=== PATIENT | female | born 1945 | race Caucasian/White ===

== ENCOUNTER → 2018-05-06 15:56 | Outpatient (CLI) | payer OTHER, SELFPAY ==
--- NOTE | 2018-05-06 | DI.RAD.S_ITS ---
PROCEDURE: XR LUMBAR SPINE 2-3V INDICATIONS: LEFT HIP, LEFT LEG PAIN TECHNIQUE: 3 views of the lumbar spine were acquired. COMPARISON: None. FINDINGS: Bones: 5 [id number] vertebrae are present. Minimal anterolisthesis of L4 on L5 is seen. Degenerative endplate changes and bilateral facet arthrosis throughout lumbar spine is seen more prominent at L4-5 and L5-S1 levels. No vertebral body compression fractures. No suspicious bony lesions. Soft tissues: Overlying bowel gas pattern is normal. No suspicious soft tissue calcifications. IMPRESSION: Degenerative disc disease throughout lumbar spine with likely grade 1 degenerative anterolisthesis of L4 on L5. No acute compression fracture. Dictated by: Young Hunter M.D. on 05/06/2018 at 17:24 Approved by: Young Hunter M.D. on 05/06/2018 at 17:26
--- NOTE | 2018-05-06 | DI.RAD.S_ITS ---
PROCEDURE: XR HIP W PEL IF DONE LT 2V INDICATIONS: LEFT HIP AND LEFT LEG PAIN TECHNIQUE: AP pelvis with lateral view(s) of the left hip(s). COMPARISON: None. FINDINGS: Bones: No fractures or dislocations. Pelvic ring appears intact. No suspicious bony lesions. Symmetric appearing bilateral hip joint osteoarthritis is seen. No evidence of avascular necrosis. Soft tissues: The visualized bowel gas pattern is normal. No suspicious soft tissue calcifications. IMPRESSION: Symmetric appearing mild bilateral hip joint osteoarthritis. No fracture or dislocation. No evidence of avascular necrosis. Dictated by: Young Hunter M.D. on 05/06/2018 at 17:22 Approved by: Young Hunter M.D. on 05/06/2018 at 17:23
--- NOTE | 2018-05-06 | DI.RAD.S_ITS ---
PROCEDURE: XR KNEE LT 3V INDICATIONS: LEFT HIP AND LEFT LEG PAIN TECHNIQUE: 3 views of the knee were acquired. COMPARISON: None. FINDINGS: Bones: No fractures or dislocations. No suspicious bony lesions. 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 No significant patellar subluxation. Soft tissues: No joint effusion. No suspicious soft tissue calcifications. IMPRESSION: [id number] tricompartment osteophytes. No left knee fracture or dislocation. No significant patellar subluxation. Dictated by: Young Hunter M.D. on 05/06/2018 at 17:23 Approved by: Young Hunter M.D. on 05/06/2018 at 17:24
== END ==
PROVIDERS: Visit Provider Family Medicine
DX: M25.552 Pain in left hip (principal); M79.605 Pain in left leg; M16.0 Bilateral primary osteoarthritis of hip; M17.12 Unilateral primary osteoarthritis, left knee; M51.36 Other intervertebral disc degeneration, lumbar region; M51.37 Other intervertebral disc degeneration, lumbosacral region
CPT/HCPCS: 72100; 73502; 73562

== ENCOUNTER → 2018-05-30 07:43 | Outpatient (CLI) | payer OTHER, SELFPAY ==
--- NOTE | 2018-05-30 | DI.MRI.S_ITS ---
PROCEDURE: MR LUMBAR SPINE WO CON INDICATIONS: LUMBAR RADICULOPATHY TECHNIQUE: Noncontrast sagittal T1 spin echo and T2 fast echo, sagittal STIR, axial T1 and T2 fast spin echo through the lumbar spine. In cases with scoliosis, additional coronal T2 fast spin echo may be performed. COMPARISON: [facility], CR, XR LUMBAR SPINE 2-3V, 05/06/2018, 16:23. FINDINGS: Image quality: Excellent. Alignment and Curvature: 5 lumbar type vertebral bodies are present by plain film. There is minimal, grade 1 retrolisthesis of L1 on L2 and L2 on L3. There is mild grade 1 anterolisthesis of L3 on L4 and L4 on L5. Bone Marrow: Marrow is of normal overall signal. No acute vertebral body compression fractures. Mild reactive signal within the endplates adjacent to the L1-L2, L2-L3, and L3-L4 intervertebral discs. Spinal Cord: Conus medullaris terminates at the upper L1 level. Visualized cord demonstrates normal signal and size. Paraspinous Soft Tissues: No paravertebral masses. L1-L2: Mild disc desiccation and diffuse disc bulge. Mild bilateral facet and ligamentum flavum hypertrophy. Mild epidural lipomatosis. Mild canal stenosis. Mild left foraminal stenosis. No right foraminal stenosis. L2-L3: Mild disc desiccation and diffuse disc bulge. Mild bilateral facet and ligamentum flavum hypertrophy. Mild epidural lipomatosis. Mild canal stenosis. Mild foraminal stenosis bilaterally. L3-L4: Mild disc height loss and desiccation. Mild diffuse disc bulge. Moderate bilateral facet and ligamentum flavum hypertrophy. Mild epidural lipomatosis. Moderate canal stenosis. Mild subarticular foraminal stenosis bilaterally. L4-L5: Mild disc height loss and desiccation. Mild diffuse disc bulge, with superimposed small broad-based left far lateral protrusion. Moderate bilateral facet and ligamentum flavum hypertrophy. Mild epidural lipomatosis. There is moderate canal stenosis. There is mild right and moderate to severe left foraminal stenosis with mild mass effect upon the left L4 nerve root within the neural foramen. L5-S1: Mild disc height loss and desiccation. Mild diffuse disc bulge. Moderate bilateral facet hypertrophy. Mild canal stenosis. Severe right and mild left foraminal stenosis. Mild flattening deformity of the right L5 nerve root within the neural foramen. IMPRESSION: 1.Multilevel degenerative disc and facet disease, as well as ligamentum flavum hypertrophy and epidural lipomatosis. 2. Multilevel canal stenoses, worst at L3-L4 and L4-L5, where there are moderate foraminal stenoses present. 3. Multilevel foraminal stenoses, worst on the left at L4-L5, and on the right at L5-S1, where there is associated intraforaminal neural flattening as described above. Recommend correlation with clinical symptoms to ascertain relevance of these findings. Dictated by: Lenora Olivares M.D. on 05/30/2018 at 9:01 Approved by: Lenora Olivares M.D. on 05/30/2018 at 9:07
== END ==
PROVIDERS: PCP Family Medicine; Visit Provider Family Medicine
DX: M54.16 Radiculopathy, lumbar region (principal)
CPT/HCPCS: 72148

== ENCOUNTER 2018-07-16 08:48 | Day surgery (SDC) | payer OTHER, SELFPAY ==
[2018-07-15 11:35] VITALS: BP 123/74; PULSE 74; RESP 20; TEMP 36.6; O2SAT 97
[2018-07-16] MEDS: PROPARACAINE 0.5% OPHTH SOL 2 DROPS EYE-OP (09:49)
[2018-07-16] MEDS: CATARACT EYE COMPOUND (10 DROPS/SYRINGE) 3 DROPS EYE-OP (09:55)
[2018-07-16 09:57] VITALS: BMI 32.3
[2018-07-16 10:03] VITALS: BP 153/85; PULSE 80; RESP 15; TEMP 36.8; O2SAT 95
[2018-07-16] MEDS: CHONDROIDTIN/SOD HYALURONATE 1.05 ML SYRINGE INTRAOCULA (11:18)
[2018-07-16] MEDS: TRIAMCINOLONE 50 MG/5 ML VIAL INJ (11:18)
[2018-07-16] MEDS: MOXIFLOXACIN OPHTH DROPS 3 ML BOTTLE 2 DROPS INJ (11:18)
[2018-07-16] MEDS: PHENYLEPHRINE/LIDOCAINE VIAL (OR) 0.2 ML EYE-OP (11:18)
[2018-07-16] MEDS: TETRACAINE 0.5% OPHTH DROPS 4 ML 2 DROPS EYE-OP (11:19)
--- NOTE | 2018-07-16 11:29 | PM.PREOP ---
Pre-operative Note Interval Note History & Physical reviewed/Exam performed by Physician: No Changes to H&P: No
--- NOTE | 2018-07-16 11:29 | PM.OP.1 ---
Operative Date/Time/Diagnoses Pre-op diagnosis: Nuclear cataract right eye Procedure & Clinicians Procedure: Cataract Surgery Same procedure as scheduled: Yes Surgeon: Magdiel Stubbs Anesthesia Type: MAC +/- and Sedation Operative Notes Procedure in detail: Patient brought to the operating suite. Tetracaine drops placed in the right eye. Patient was prepped and draped in sterile manner. Wire lid speculum was placed in the eye. Betadine drops were placed on the eye. This was irrigated. Lidocaine jelly was placed on the eye. A paracentesis port was created with a side-port blade. 0.1 mL 1% preservative free lidocaine was injected into the anterior chamber. The anterior chamber was deepened with viscoelastic. 2.6 mm keratome was used to create a temporal clear corneal incision. Cystotome and Utrata forceps were used to create continuous tear capsulorrhexis. Balanced salt solution was used to hydro dissect the nucleus. The phacoemulsification handpiece was inserted and the nucleus was removed using the stop and chop technique. The irrigation aspiration handpiece was inserted and the remaining cortex was removed. Anterior chamber was deepened with viscoelastic. An Landry ZCB00 intraocular lens with a power of 23.0 was injected into the capsular bag. Irrigation aspiration handpiece was inserted and the remaining viscoelastic was removed. Incision was hydrated with balanced salt solution and found to be leak free with pressure with Weck-Ashley sponges. 0.1 mL Vigamox injected anterior chamber. 0.3 mL Kenalog 10 mg was injected subconjunctivally. Lid speculum was removed. The patient left the operating room in excellent condition. Complications: none Condition: stable Disposition: same day surgery
== END 2018-07-16 11:50 ==
LOC: OR 08:52
PROVIDERS: PCP Family Medicine; Visit Provider Ophthalmology
DX: H25.11 Age-related nuclear cataract, right eye (principal); I10 Essential (primary) hypertension
CPT/HCPCS: J2250; J3010; J3301

== ENCOUNTER 2018-07-30 08:19 | Day surgery (SDC) | payer OTHER, SELFPAY ==
[2018-07-30 08:54] VITALS: BP 141/78; PULSE 67; RESP 16; TEMP 36.9; O2SAT 96; BMI 32.3
[2018-07-30] MEDS: PROPARACAINE 0.5% OPHTH SOL 2 DROPS EYE-OP (09:05)
[2018-07-30] MEDS: CATARACT EYE COMPOUND (10 DROPS/SYRINGE) 3 DROPS EYE-OP (09:07)
--- NOTE | 2018-07-30 09:48 | PM.PREOP ---
Pre-operative Note Interval Note History & Physical reviewed/Exam performed by Physician: No Changes to H&P: No
--- NOTE | 2018-07-30 09:48 | PM.OP.1 ---
Operative Date/Time/Diagnoses Pre-op diagnosis: Nuclear Cataract Left eye Post-op diagnosis: same Procedure & Clinicians Surgeon: Magdiel Stubbs Anesthesia Type: MAC +/- and Sedation Operative Notes Procedure in detail: Patient brought to the operating suite. Tetracaine drops placed in the left eye. Patient was prepped and draped in sterile manner. Wire lid speculum was placed in the eye. Betadine drops were placed on the eye. This was irrigated. Lidocaine jelly was placed on the eye. A paracentesis port was created with a side-port blade. 0.1 mL 1% preservative free lidocaine was injected into the anterior chamber. The anterior chamber was deepened with viscoelastic. 2.6 mm keratome was used to create a temporal clear corneal incision. Cystotome and Utrata forceps were used to create continuous tear capsulorrhexis. Balanced salt solution was used to hydro dissect the nucleus. The phacoemulsification handpiece was inserted and the nucleus was removed using the stop and chop technique. The irrigation aspiration handpiece was inserted and the remaining cortex was removed. Anterior chamber was deepened with viscoelastic. An Landry ZCB00 intraocular lens with a power of 23.0 was injected into the capsular bag. Irrigation aspiration handpiece was inserted and the remaining viscoelastic was removed. Incision was hydrated with balanced salt solution and found to be leak free with pressure with Weck-Ashley sponges. 0.1 mL Vigamox injected anterior chamber. 0.3 mL Kenalog 10 mg was injected subconjunctivally. Lid speculum was removed. The patient left the operating room in excellent condition. Complications: none Condition: stable Disposition: same day surgery
--- NOTE | 2018-07-30 09:50 | PM.PREOP ---
Pre-operative Note Interval Note History & Physical reviewed/Exam performed by Physician: No Changes to H&P: No
[2018-07-30] MEDS: MOXIFLOXACIN OPHTH DROPS 3 ML BOTTLE 2 DROPS INJ ×2 (09:55)
[2018-07-30] MEDS: TRIAMCINOLONE 50 MG/5 ML VIAL INJ (09:55)
[2018-07-30] MEDS: CHONDROIDTIN/SOD HYALURONATE 1.05 ML SYRINGE INTRAOCULA (09:55)
[2018-07-30] MEDS: LIDOCAINE JELLY 2% 5 ML 1 APPLIC TOP (09:56)
[2018-07-30] MEDS: TETRACAINE 0.5% OPHTH DROPS 4 ML 2 DROPS EYE-OP (09:56)
[2018-07-30] MEDS: BALANCED SALT IRRIG SOLN NO.2 500 ML, EPINEPHrine 1 MG IRR (09:56)
[2018-07-30] MEDS: PHENYLEPHRINE/LIDOCAINE VIAL (OR) 0.2 ML EYE-OP (09:57)
[2018-07-30 10:11] VITALS: BP 120/80; PULSE 70; RESP 15; TEMP 36.3; O2SAT 98
== END 2018-07-30 10:21 | disposition home or self-care (01) ==
LOC: OR 08:20
PROVIDERS: PCP Family Medicine; Visit Provider Ophthalmology
DX: H25.12 Age-related nuclear cataract, left eye (principal); I10 Essential (primary) hypertension
CPT/HCPCS: J0171; J2250; J3010; J3301

== ENCOUNTER → 2019-01-30 08:46 | Outpatient (CLI) | payer OTHER, SELFPAY ==
--- NOTE | 2019-01-30 | DI.MG.S_ITS ---
BILATERAL DIGITAL SCREENING MAMMOGRAM 3D/2D WITH CAD: 01/30/2019 CLINICAL: Routine screening. Comparison is made to exams dated: 07/06/2017 mammogram, 06/22/2016 mammogram, and 06/21/2015 mammogram - [facility]. The tissue of both breasts is heterogeneously dense. This may lower the sensitivity of mammography. Current study was also evaluated with a Computer Aided Detection (CAD) system. No significant masses, calcifications, or other findings are seen in either breast. There has been no significant interval change. IMPRESSION: NEGATIVE There is no mammographic evidence of malignancy. A 1 year screening mammogram is recommended. This exam was interpreted at Station ID: [id number]. NOTE: For mammograms, a report in lay terms will be sent to the patient. Approximately 15% of breast malignancies will not be visualized mammographically. In the management of a palpable breast mass, a negative mammogram must not discourage biopsy of a clinically suspicious lesion. Electronically Signed By: Enrique gonzalez/mathew:01/31/2019 18:05:07 letter sent: Normal Exam ACR BI-RADS Category 1: Negative [id number]
--- NOTE | 2019-01-30 | DI.RAD.S_ITS ---
PROCEDURE: XR CHEST 2V INDICATIONS: FHX LUNG CA TECHNIQUE: 2 views of the chest were acquired. COMPARISON: [facility], , CHEST 1 VIEW, 09/21/2017, 17:31. FINDINGS: Surgical changes and devices: None. Lungs and pleura: Lungs are clear. No mass seen. No pleural effusions or pneumothorax. Mediastinum: Mediastinal contours are normal and unchanged. Heart size is normal. Bones and chest wall: No suspicious bony abnormalities. Soft tissues appear unremarkable. IMPRESSION: Normal exam. No mass or adenopathy seen. Dictated by: Poncho Kong M.D. on 01/30/2019 at 9:45 Approved by: Poncho Kong M.D. on 01/30/2019 at 9:47
== END ==
PROVIDERS: PCP Family Medicine; Visit Provider Family Medicine
DX: Z80.1 Family history of malignant neoplasm of trachea, bronchus and lung (principal); Z12.31 Encounter for screening mammogram for malignant neoplasm of breast
CPT/HCPCS: 71046; 77063; 77067

== ENCOUNTER → 2019-08-22 08:55 | Outpatient (CLI) | payer OTHER, SELFPAY ==
--- NOTE | 2019-08-22 | DI.MRI.S_ITS ---
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 After the administration of contrast, axial 3D VIBE of the cranial vasculature and brain. Brain MRA: Non-contrast 3-D time of flight MR angiogram, with multiple hwfqahr-dktkmyzlw-fbjqytwuwe (MIP) reformats performed. Neck MRA: Axial and sagittal TruFISP through the neck. Coronal dynamic MR angiogram during administration of contrast in the arterial and venous phases, with 3-dimenstional lhzdkoe-eeeadujiy-djhjtfrtxp (MIP) reformats constructed from subtraction images. COMPARISON: None. FINDINGS: Image quality: Excellent. BRAIN: CSF spaces: Ventricles are normal in size and shape. Basal cisterns are patent. No extra-axial fluid collections. Brain: No intracranial bleeds or mass effects. Gutierrez-white matter interface is normal. There is mild brain parenchymal volume loss. Mild chronic small vessel ischemic change can be seen. Diffusion weighted images show no acute ischemic insults. Brainstem appears normal. Normal intravascular flow voids are present. No abnormal intracranial enhancement. Skull and face: Calvarial marrow signal is normal. Orbits appear normal. Note is made of bilateral lens replacements. Sinuses: Sinuses and mastoids are clear. BRAIN MR ANGIOGRAM: Anterior circulation: Intracranial internal carotid arteries are normal in size and enhancement. The flow within the paired anterior cerebral arteries is normal and symmetric. The flow within the middle cerebral arteries is normal and symmetric. The anterior communicating artery is faintly seen. No stenoses, occlusions, or aneurysms. Posterior circulation: The visualized portions of the vertebral arteries demonstrate normal caliber, and join to form a normal appearing basilar artery. There is a prominent right posterior communicating artery seen, with an accompanying diminutive right P1 segment. This is attributed to a type origin of the right posterior cerebral artery, which is considered to be a normal developmental variant of typically no clinical consequence. The flow within the posterior cerebral arteries is normal and symmetric. No stenoses, occlusions, or aneurysms. NECK MR ANGIOGRAM: Carotids: Incidental note is made of a common origin of the right brachiocephalic artery and the left common carotid artery (bovine type arch). This is considered to be a developmental variant of no clinical consequence. The origins of the common carotid arteries appear patent. The calibers and courses of both common carotid arteries are normal. The bifurcation regions demonstrate irregularity. There is approximately 70% narrowing seen involving the left proximal internal carotid artery and there is approximately 40% narrowing involving the right proximal internal carotid artery. Posterior circulation: The origins of the vertebral arteries appear patent. More superior portions of both vertebral arteries demonstrate normal course and caliber, and join to form a normal appearing basilar artery. Miscellaneous: Subclavian arteries appear patent. Pre-contrast images through the neck show no soft tissue abnormalities. IMPRESSION: BRAIN MRI: Unremarkable intracranial examination for age, with mild brain parenchymal volume loss and chronic small vessel ischemic change. No findings of acute or subacute infarction can be seen. BRAIN MR ANGIOGRAM: No significant intracranial arterial abnormality is detected. NECK MR ANGIOGRAM: There is approximately 70% stenosis seen involving the left proximal internal carotid artery. There is approximately 40% stenosis involving the right proximal internal carotid artery. Dictated by: Lavon Hearn M.D. on 08/22/2019 at 9:58 Approved by: Lavon Hearn M.D. on 08/22/2019 at 10:04
== END ==
PROVIDERS: PCP Family Medicine; Referring Provider Family Medicine; Visit Provider Family Medicine
DX: I63.40 Cerebral infarction due to embolism of unspecified cerebral artery (principal); I65.23 Occlusion and stenosis of bilateral carotid arteries
CPT/HCPCS: 70548; 70553

== ENCOUNTER → 2019-09-12 13:30 | Outpatient (CLI) | payer OTHER, SELFPAY ==
--- NOTE | 2019-09-12 | DI.ECHO.S_ITS ---
[facility]---------+ [facility] +---------+ : : [address] : : : : [id number] : : : : Phone: [phone] Echocardiogram Report + + :Name: MADIHA WATERS Study Date: 09/12/2019 Height: 59 in : :[facility] Weight: 165 lb : : Gender: Female BSA: 1.7 m2 : :: 1945 Age: 73 yrs BP: 148/78 mmHg: :Reason For Study: CEREBRAL INFARCTION : : Performed By: Vipul Garcia : :Referring: MARC SHEPHERD : + + Interpretation Summary Normal sinus rhythm. Normal LV size, wall thickness, wall motion and LV systolic function. Normal chamber sizes. No valvular abnormalities. No source of embolism found. No evidence of PFO based on color flow Doppler Procedure: A two-dimensional transthoracic echocardiogram with color flow and Doppler was performed. The study quality was technically adequate. There is no prior echocardiogram noted for this patient. The patient was in normal sinus rhythm during the exam. The patient had occasional PVCs during the exam. Left Ventricle: The left ventricle is normal in size. There is normal left ventricular wall thickness. The ejection fraction is estimated to be 60-65%. There are no focal wall motion abnormalities. Right Ventricle: The right ventricle is normal in size and function. Atria: Both atria are normal in size. The interatrial septum is intact with no evidence for an atrial septal defect. Mitral Valve: The mitral valve is normal in structure and function. There is trace mitral regurgitation. Aortic Valve: The aortic valve is not well visualized. The aortic valve opens well. No aortic regurgitation is present. Tricuspid Valve: The tricuspid valve is normal in structure and function. There is a trace or physiologic amount of tricuspid regurgitation. Pulmonary artery pressures cannot be estimated because of the lack of a measurable TR jet velocity. Pulmonic Valve: The pulmonic valve is not well visualized. There is no pulmonic valvular regurgitation. Great Vessels: The aortic root is normal size. The dimensions of the ascending aorta are normal. The pulmonary artery is normal size. The IVC is of normal diameter and collapses greater than 50% with a sniff. This suggests a low right atrial pressure of 3 mm Hg. Pericardium/ Pleura There is no pericardial effusion. There is no pleural effusion. MMode/2D Measurements & Calculations LVIDd: 4.7 cm LVOT diam: 2.2 cm LVIDs: 2.6 cm asc Aorta Diam: 3.4 cm FS: 44.4 % Ao Arch Diam (Prox Trans): 2.4 cm EPSS: 0.15 cm IVSd: 0.86 cm LVPWd: 0.69 cm LV lr. diameter/BSA (cm/m^2): 2.7 LV sys. diameter/BSA (cm/m^2): 1.5 LA dimension: 4.2 cm RA long axis: 5.2 cm LA A2 area: 19.1 cm2 RA area: 16.8 cm2 LA A4 area: 19.9 cm2 RA vol: 45.9 ml LA length (vol): 6.2 cm RA : 27.0 ml/m2 LA vol: 52.4 ml IVC diam: 1.5 cm LA vol index: 30.8 ml/m2 Doppler Measurements & Calculations Ao V2 max: 163.7 cm/sec LVOT Max Devin: 114.8 cm/sec Ao V2 mean: 113.5 cm/sec LV V1 max P.3 mmHg Ao max P.7 mmHg LV V1 VTI: 27.7 cm Ao mean P.8 mmHg ROMEO(I,D): 2.7 cm2 Ao V2 VTI: 36.7 cm ROMEO(V,D): 2.6 cm2 sev ratio: 0.75 ROMEO indexed to BSA (cm^2/m^2): 1.6 MV E max devin: 114.7 cm/sec PA V2 max: 106.6 cm/sec MV A max devin: 82.4 cm/sec PA V2 mean: 85.1 cm/sec MV E/A: 1.4 PA mean P.0 mmHg Med Peak E' Devin: 5.7 cm/sec PA pr(Accel): 31.0 mmHg E/E' med: 20.2 Lat Peak E' Devin: 9.4 cm/sec E/E' lat: 12.2 E/e' average: 16.2 MV dec time: 0.18 sec SV(LVOT): 101.0 ml Electronically signed by: Marietta Moon M.D. on Reading Physician:09/13/2019 08:06 AM
--- NOTE | 2019-09-12 | DI.US.S_ITS ---
PROCEDURE: US CAROTID DOPPLER BI INDICATIONS: CEREBRAL INFARCTION TECHNIQUE: Color and pulse Doppler interrogation was performed of both carotid systems, with image documentation and velocity measurements. COMPARISON: [facility], MR, MR STROKE, 08/22/2019, 9:38. FINDINGS: Stenosis calculations are based on SRU (Society of Radiologists in Ultrasound) criteria. Right side: Brachial blood pressure: 143/77 mm Hg. Common carotid artery peak systolic velocity: 77 cm/sec. Internal carotid artery peak systolic velocity: 268 cm/sec. Internal carotid artery end diastolic velocity: 59 cm/sec. External carotid artery peak systolic velocity: 102 cm/sec. ICA/CCA peak systolic ratio: 3.5 Gutierrez scale imaging description: Moderate atherosclerotic changes are seen. Percent internal carotid artery stenosis: Greater than 70% Vertebral artery: Flow direction is antegrade. Left side: Brachial blood pressure: 154/84 mm Hg. Common carotid artery peak systolic velocity: 72 cm/sec. Internal carotid artery peak systolic velocity: 350 cm/sec. Internal carotid artery end diastolic velocity: 60 cm/sec. External carotid artery peak systolic velocity: 81 cm/sec. ICA/CCA peak systolic ratio: 4.9 Gutierrez scale imaging description: Atherosclerotic plaque can be seen. Percent internal carotid artery stenosis: Greater than 70%. Vertebral artery: Flow direction is antegrade. IMPRESSION: Greater than 70% stenoses can be seen involving both internal carotid arteries, left worse than right. Vascular surgery consultation is recommended. Dictated by: Lavon Hearn M.D. on 09/12/2019 at 14:10 Approved by: Lavon Hearn M.D. on 09/12/2019 at 14:11
== END ==
PROVIDERS: PCP Family Medicine; Referring Provider Family Medicine; Visit Provider Family Medicine
DX: I63.9 Cerebral infarction, unspecified (principal); I65.23 Occlusion and stenosis of bilateral carotid arteries; I10 Essential (primary) hypertension
CPT/HCPCS: 93306; 93880

== ENCOUNTER → 2020-11-12 13:58 | Outpatient (CLI) | payer OTHER, SELFPAY ==
--- NOTE | 2020-11-12 | DI.RAD.S_ITS ---
PROCEDURE: XR CHEST 2V INDICATIONS: Cough TECHNIQUE: 2 views of the chest were acquired. COMPARISON: [facility], CR, XR CHEST 2V, 01/30/2019, 8:57. FINDINGS: Surgical changes and devices: None. Lungs and pleura: Lungs are clear. No pleural effusions or pneumothorax. Mediastinum: Mediastinal contours are normal. Heart size is normal. Bones and chest wall: No suspicious bony abnormalities. Soft tissues appear unremarkable. IMPRESSION: No acute cardiopulmonary process demonstrated radiographically. Dictated by: Hudson Dorado M.D. on 11/12/2020 at 14:34 Approved by: Hudson Dorado M.D. on 11/12/2020 at 14:35
== END ==
PROVIDERS: PCP Family Medicine; Referring Provider Family Medicine; Visit Provider Family Medicine
DX: R05 Cough (principal)
CPT/HCPCS: 71046

== ENCOUNTER 2020-12-10 08:42 | Emergency (ER) | payer OTHER, SELFPAY ==
[2020-12-10] VITALS (26 sets, daily range): BP systolic 129–187; BP diastolic 63–88; PULSE 67–89; RESP 11–44; TEMP 36.2–36.8; O2SAT 93–99; BMI 33.3
--- NOTE | 2020-12-10 08:51 | DI.CT.S_ITS ---
PROCEDURE: CT STROKE INDICATIONS: slurred speech since 0800 TECHNIQUE: Noncontrast 4.5 mm thick angled axial sections acquired from the foramen magnum to the vertex, with coronal reformats. For radiation dose reduction, the following was used: automated exposure control, adjustment of mA and/or kV according to patient size. COMPARISON: None. FINDINGS: Image quality: Excellent. CSF spaces: Basal cisterns are patent. No extra-axial fluid collections. The ventricles are symmetric in size and shape. Brain: No intracranial bleeds or masses. There is cerebral volume loss for age, with resultant ventricular and sulcal prominence. There are periventricular and deep white matter chronic small vessel ischemic changes. There is intracranial internal carotid artery atherosclerosis. Skull and face: Calvarium and visualized facial bones appear intact, without suspicious lesions. Sinuses: Visualized sinuses and mastoids are clear. IMPRESSION: No acute intracranial abnormality. Findings discussed with Dr. Dr. Verónica Clarke MD on 12/10/2020 at 916 hours. This study fulfills neurological imaging criteria for inclusion or exclusion of acute stroke therapies based on available published neurological guidelines. Dictated by: Lenora Olivares M.D. on 12/10/2020 at 9:16 Approved by: Lenora Olivares M.D. on 12/10/2020 at 9:17
--- NOTE | 2020-12-10 09:03 | DI.CT.S_ITS ---
PROCEDURE: CT ANGIO HEAD AND NECK INDICATIONS: slurred speech since 0800 TECHNIQUE: Pre-contrast 4.5 mm thick sections acquired from the foramen magnum to the vertex. After the administration of intravenous contrast, 1 mm thick sections acquired from the aortic arch through the [place] of [place]. Post-contrast 4.5 mm thick sections then re-acquired from the foramen magnum to the vertex. 3-dimensional yvdftee-cyptoheuu-ovlcpzlrqi (MIP) and/or volume rendering reformats were acquired of the central intracranial vasculature and neck separately. COMPARISON: [facility], MR, MR STROKE, 08/22/2019, 9:38. [facility], CT, CT STROKE, 12/10/2020, 9:02. FINDINGS: Image quality: Excellent. BRAIN: The ventricular system and cortical sulci demonstrate atrophy, consistent for the patient's stated age. There are areas of hypodensity within the periventricular and subcortical white matter. There is no acute intra-or extra axial fluid collection. No acute hemorrhage, mass lesion or midline shift. Brainstem is unremarkable. Globes are symmetrical. Sinuses are aerated. Osseous structures are intact. HEAD CT ANGIOGRAPHY: Anterior circulation: Intracranial internal carotid arteries are normal in size and flow. The flow within the paired anterior cerebral arteries is normal and symmetric. The flow within the middle cerebral arteries is normal and symmetric. The anterior communicating artery is seen. No aneurysms are seen. Posterior circulation: Visualized portions of the vertebral arteries demonstrate normal caliber, and join to form a normal appearing basilar artery. Flow within the posterior cerebral arteries is normal and symmetric. No aneurysms are seen. Left vertebral artery dominance is present. NECK CT ANGIOGRAPHY: The origins of the left and right common and external carotid arteries demonstrate no areas of hemodynamically significant stenosis, vascular occlusion or aneurysmal dilation. There is occlusion at the origin of the left internal carotid artery extending approximately 1 cm. This is progressive compared to prior exam. Calcifications are present. There is distal reconstitution of flow. There is near complete occlusion of the right internal carotid artery at the origin, extending 1.1 cm, demonstrating a very minimal linear focus of enhancement traversing the segment. This is progressive compared to prior exam. Prominent calcifications are present. Distal reconstitution of flow is present. Origins of the left and right vertebral arteries demonstrate no areas of hemodynamically significant stenosis, vascular occlusion or aneurysmal dilation. 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 Limited, visualized portions of the subclavian vasculature are unremarkable. Mediastinal adenopathy is present. There is an anterior right paratracheal lymph node measuring 1.6 cm. In addition, left supraclavicular adenopathy is present with a 1.4 cm lymph node. IMPRESSION: 1. No acute intracranial process. 2. Moderate atrophy and chronic microvascular ischemic changes. 3. No areas of hemodynamically significant stenosis, vascular occlusion or aneurysmal dilation within the anterior or posterior circulation. 4. Occlusion at the origin of the left internal carotid artery as above with distal reconstitution of flow. This is progressive compared to prior exam. 5. Near complete occlusion with very minimal flow at the origin of the right internal carotid artery with distal reconstitution of flow. This is progressive compared to prior exam. 6. Mediastinal and supraclavicular adenopathy as above. This appears greater than expected to be reactive in nature. Further evaluation of potential malignancy should be considered. Any quantitative measurements of stenosis were performed using NASCET criteria. Dictated by: Samira Jj M.D. on 12/10/2020 at 9:48 Approved by: Samira Jj M.D. on 12/10/2020 at 10:21
[2020-12-10 09:13] LABS: Add Manual Diff / Slide Review NO; Basophils Absolute Auto 100 /uL (0-100); Basophils Percent Auto 1.1 % (0-2); Eosinophils Absolute Auto 200 /uL (0-450); Eosinophils Percent Auto 3.2 % (2-4); Hematocrit 37.2 % (36-46); Hemoglobin 12.4 g/dL (12.0-16.0); Lymphocytes Absolute Auto 2700 /uL (1100-4500); Lymphocytes Percent Auto 34.7 % (25-40); Mean Corpuscular HGB Conc 33.4 % (30-36); Mean Corpuscular Hemoglobin 29.4 PG (26-34); Mean Corpuscular Volume 87.8 fL (80-100); Monocytes Absolute Auto 800 /uL (0-900); Monocytes Percent Auto 10.4 % (3-14); Neutrophils Absolute Auto 3900 /uL (1500-7000); Neutrophils Percent Auto 50.6 % (50-75); Platelet Count 194 X10^3/uL (150-400); Red Blood Cell Count 4.23 X10^6/uL (4.0-5.2); Red Cell Distribution Width 13.5 % (11.6-14.8); White Blood Cell Count 7.8 X10^3/uL (4.5-11.0)
--- NOTE | 2020-12-10 09:23 | ED_ITS ---
HPI - Neuro Symptoms/Deficit General Chief Complaint: Neuro Symptoms/Deficit Stated Complaint: Poss stroke Time Seen by Provider: 12/10/20 08:55 Source: patient Mode of arrival: Ambulatory Limitations: no limitations History of Present Illness HPI Narrative: Patient is a 74-year-old female who has been known carotid occlusion on the left about 90% presenting today with last known well at 8:00 a.m. at which point she started having some slurring speech. She does speak [place] however both and she states that this speech is not her normal. She has no numbness tingling or weakness. No visual changes or loss of sensation. No prior history of stroke. On Anticoagulants: Yes (ASA 325 mg) Related Data Home Medications Medication Instructions Recorded Confirmed amlodipine 10 mg tablet 1 tab PO QPM #0 09/21/17 12/10/20 conjugated estrogens 0.45 mg 1 tab PO QAM #0 09/21/17 12/10/20 tablet (Premarin) triamterene 37.5 1 tab PO BEDTIME #0 09/21/17 12/10/20 mg-hydrochlorothiazide 25 mg capsule (Dyazide) losartan 25 mg tablet 25 mg PO QAM 12/10/20 12/10/20 metoprolol succinate 50 mg 50 mg PO BID 12/10/20 12/10/20 tablet,extended release 24 hr rosuvastatin 10 mg tablet 10 mg PO BEDTIME 12/10/20 12/10/20 Allergies Allergy/AdvReac Type Severity Reaction Status Date / Time Penicillins Allergy Mild Rash Verified 12/10/20 11:21 Review of Systems Review of Systems Narrative: GENERAL: Denies chills, fatigue, malaise, fever, sweats, travel HEENT: Denies sinus pain, ear pain, sore throat, difficulty swallowing, neck pain RESPIRATORY: Denies dyspnea, cough, wheezing, hemoptysis, sputum. CARDIOVASCULAR: Denies chest pain, palpitations, orthopnea, edema GASTROINTESTINAL: Denies nausea, vomiting, abdominal pain, diarrhea, constipation, melena. : Denies dysuria, frequency, incontinence, hematuria, urinary retention, flank pain. MUSCULOSKELETAL: Denies weakness, joint pain, or bony pain SKIN: No rash, no erythema, no pruritus NEUROLOGIC: See HPI PSYCHIATRIC: No concerning psychosocial issues. 12 point review of systems is negative except for those stated above and HPI Hematologic/Lymphatic On Anticoagulants: Yes (ASA 325 mg) Patient History Social History household members: spouse Smoking Status: Never smoker Smoking Status: Never smoker alcohol intake frequency: a few times a week Substance Use Type: does not use Exam Initial Vital Signs Initial Vital Signs: Vital Signs Temperature 97.1 F L 12/10/20 08:48 Pulse Rate 89 12/10/20 08:48 Respiratory Rate 14 12/10/20 08:48 Blood Pressure 187/88 H 12/10/20 08:48 Pulse Oximetry 99 12/10/20 08:48 GENERAL: Alert pleasant 74-year-old female and in no acute distress. HEENT: Head atraumatic,EOMI, pupils reactive, face symmetric, moist mucous membranes CARDIOVASCULAR: Regular rate and rhythm without murmurs, rubs or gallops. RESPIRATORY: Breath sounds equal bilaterally, no wheezes rales or rhonchi. ABDOMEN: Soft, nontender. Normoactive bowel sounds all 4 quadrants. No guarding or rebound. EXTREMITIES: Normal range of motion, no clubbing or edema. Neurovascularly intact NEUROLOGICAL: Alert and oriented x4.Normal gait and speech. Cranial nerves II through XII grossly intact. Good mbvxzp-ys-gynn, good bffm-ex-bfvj, strength equal bilaterally, no dysarthria or aphasia, sensation in tact to soft touch bilaterally, no visual changes, no facial droop mild slurring of speech SKIN: Warm, dry, no laceration, no petechiae, no rashes or lesions. Scores NIH Stroke Scale Level of Conciousness: Alert, keenly responsive Ask month/age: Answers both questions correctly. Open/close eyes, close hand: Performs both tasks correctly Best gaze horizontal: Normal Visual haskins: No visual loss Facial palsy: Normal symetrical movement Left arm drift: No drift for full 10 sec Right arm drift: No drift for full 10 sec Left leg drift: No drift for full 5 sec Right leg drift: No drift for full 5 sec Limb ataxia: Absent Sensory on face/arms/legs: Normal, no sensory loss Best language: Mild to moderate, slurs some words Dysarthria: Normal Extinction or inattention: No abnormality Total NIH Stroke scale score: 1 Course Orders Ordered: ED Orders 12/10/20 11:45 COVID19 - ADMIT (MIXER DIAMOND POWDER swab/PCR) Stat Discontinued Medications Amlodipine Besylate (Amlodipine 5 Mg Tablet) 10 mg PO NOW ONE Stop: 12/10/20 18:24 Last Admin: 12/10/20 18:42 Dose: 10 mg Documented by: STELLA Sodium Chloride (Normal Saline 0.9%) 1,000 mls @ 150 mls/hr IV CONT ALIRIO Last Infusion: 12/10/20 18:57 Dose: 0 mls/hr Documented by: Infusion: 12/10/20 11:00 Dose: 0 mls/hr Documented by: Admin: 12/10/20 09:52 Dose: 150 mls/hr Documented by: TJ Lorazepam (Lorazepam 2 Mg/Ml Inj) 1 mg IV NOW ONE Stop: 12/10/20 09:53 Last Admin: 12/10/20 10:23 Dose: 1 mg Documented by: QUINCY Metoprolol Tartrate (Metoprolol Ir 25 Mg Tablet) 50 mg PO NOW ONE Stop: 12/10/20 18:24 Last Admin: 12/10/20 18:42 Dose: 50 mg Documented by: STELLA Vital Signs Vital signs: Vital Signs - 8 hr 12/10/20 11:30 12/10/20 12:00 12/10/20 12:30 Temperature Pulse Rate 74 71 67 Respiratory Rate 22 20 23 Blood Pressure 136/73 129/63 129/64 Pulse Oximetry 95 95 96 12/10/20 13:00 12/10/20 13:30 12/10/20 14:03 Temperature Pulse Rate 74 74 83 Respiratory Rate 20 21 Blood Pressure 139/65 138/75 Pulse Oximetry 97 95 98 12/10/20 14:05 12/10/20 14:30 12/10/20 15:00 Temperature Pulse Rate 82 81 81 Respiratory Rate 24 20 20 Blood Pressure 153/71 H 160/74 H 142/77 H Pulse Oximetry 97 96 95 12/10/20 15:30 12/10/20 16:00 12/10/20 16:30 Temperature Pulse Rate 78 76 79 Respiratory Rate 20 26 H 20 Blood Pressure 136/69 134/68 Pulse Oximetry 96 94 97 12/10/20 16:31 12/10/20 17:00 12/10/20 17:30 Temperature Pulse Rate 79 83 79 Respiratory Rate 20 22 23 Blood Pressure 154/70 H 152/70 H 147/70 H Pulse Oximetry 96 96 12/10/20 18:00 12/10/20 18:30 12/10/20 18:55 Temperature Pulse Rate 80 83 83 Respiratory Rate 17 20 11 L Blood Pressure 148/70 H 149/78 H 149/69 H Pulse Oximetry 94 95 95 12/10/20 19:00 12/10/20 19:16 Temperature 98.3 F Pulse Rate 81 Respiratory Rate 18 Blood Pressure Pulse Oximetry 96 MDM - Neuro Symptoms/Deficit Lab Data Result diagrams: 12/10/20 09:00 12/10/20 09:00 Labs: Lab Results 12/10/20 12/10/20 12/10/20 Range/Units 09:00 09:00 09:45 WBC 7.8 (4.5-11.0) X10^3/uL RBC 4.23 (4.0-5.2) X10^6/uL Hgb 12.4 (12.0-16.0) g/dL Hct 37.2 (36-46) % MCV 87.8 (80-100) fL MCH 29.4 (26-34) PG MCHC 33.4 (30-36) % RDW 13.5 (11.6-14.8) % Plt Count 194 (150-400) X10^3/uL Neut % (Auto) 50.6 (50-75) % Lymph % (Auto) 34.7 (25-40) % [place] % (Auto) 10.4 (3-14) % Eos % (Auto) 3.2 (2-4) % Baso % (Auto) 1.1 (0-2) % Neut # (Auto) 3900 (1131-0691) /uL Lymph # (Auto) 2700 (5076-1440) /uL [place] # (Auto) 800 (0-900) /uL Eos # (Auto) 200 (0-450) /uL Baso # (Auto) 100 (0-100) /uL PT 11.7 (10.1-12.7) SECONDS INR 1.0 (0.9-1.3) APTT 33 (26.4-36.2) SECONDS Sodium 138 (137-145) mmol/L Potassium 4.1 (3.4-5.1) mmol/L Chloride 101 (98-107) mmol/L Carbon Dioxide 28 (22-32) mmol/L BUN 16 (7-17) mg/dL Creatinine 0.66 (0.52-1.04) mg/dL Estimated GFR > 60.0 (>60) mL/min BUN/Creatinine Ratio 24.2 H (6-22) Glucose 152 H (80-110) mg/dL Calcium 9.8 (8.4-10.2) mg/dL Total Bilirubin 0.4 (0.2-1.3) mg/dL AST 27 (14-36) IU/L ALT 19 (<35) IU/L Alkaline Phosphatase 76 (38-126) U/L Total Creatine Kinase 30 (30-135) U/L CK-MB (CK-2) TNP CK-MB (CK-2) Rel Index TNP Troponin I < 0.012 (0.01-0.034) ng/mL Total Protein 7.7 (6.3-8.2) g/dL Albumin 4.4 (3.5-5.0) g/dL Globulin 3.3 (1.7-4.1) g/dL Albumin/Globulin Ratio 1.3 (1.0-2.8) SARS-CoV-2 (PCR) (Negative) 12/10/20 Range/Units 11:45 WBC (4.5-11.0) X10^3/uL RBC (4.0-5.2) X10^6/uL Hgb (12.0-16.0) g/dL Hct (36-46) % MCV (80-100) fL MCH (26-34) PG MCHC (30-36) % RDW (11.6-14.8) % Plt Count (150-400) X10^3/uL Neut % (Auto) (50-75) % Lymph % (Auto) (25-40) % [place] % (Auto) (3-14) % Eos % (Auto) (2-4) % Baso % (Auto) (0-2) % Neut # (Auto) (2047-7145) /uL Lymph # (Auto) (6327-8283) /uL [place] # (Auto) (0-900) /uL Eos # (Auto) (0-450) /uL Baso # (Auto) (0-100) /uL PT (10.1-12.7) SECONDS INR (0.9-1.3) APTT (26.4-36.2) SECONDS Sodium (137-145) mmol/L Potassium (3.4-5.1) mmol/L Chloride (98-107) mmol/L Carbon Dioxide (22-32) mmol/L BUN (7-17) mg/dL Creatinine (0.52-1.04) mg/dL Estimated GFR (>60) mL/min BUN/Creatinine Ratio (6-22) Glucose (80-110) mg/dL Calcium (8.4-10.2) mg/dL Total Bilirubin (0.2-1.3) mg/dL AST (14-36) IU/L ALT (<35) IU/L Alkaline Phosphatase (38-126) U/L Total Creatine Kinase (30-135) U/L CK-MB (CK-2) CK-MB (CK-2) Rel Index Troponin I (0.01-0.034) ng/mL Total Protein (6.3-8.2) g/dL Albumin (3.5-5.0) g/dL Globulin (1.7-4.1) g/dL Albumin/Globulin Ratio (1.0-2.8) SARS-CoV-2 (PCR) Negative (Negative) Urine Dip Bedside Urine Glucose Negative Bedside Urine Bilirubin - Negative Bedside Urine Ketone - Negative Urine Specific [place] 1.015 Bedside Urine Occult Blood - Negative Bedside Urine pH 6.0 Bedside Urine Protein - Negative Bedside Urine Nitrite - Negative Bedside Urine Leukocytes - Negative Esterase Imaging Data CT scan - head: Radiologist's Impression: PROCEDURE: CT STROKE INDICATIONS: slurred speech since 0800 TECHNIQUE: Noncontrast 4.5 mm thick angled axial sections acquired from the foramen magnum to the vertex, with coronal reformats. For radiation dose reduction, the following was used: automated exposure control, adjustment of mA and/or kV according to patient size. COMPARISON: None. FINDINGS: Image quality: Excellent. CSF spaces: Basal cisterns are patent. No extra-axial fluid collections. The ventricles are symmetric in size and shape. Brain: No intracranial bleeds or masses. There is cerebral volume loss for age, with resultant ventricular and sulcal prominence. There are periventricular and deep white matter chronic small vessel ischemic changes. There is intracranial internal carotid artery atherosclerosis. Skull and face: Calvarium and visualized facial bones appear intact, without suspicious lesions. Sinuses: Visualized sinuses and mastoids are clear. IMPRESSION: No acute intracranial abnormality. Findings discussed with Dr. Dr. Verónica Clarke MD on 12/10/2020 at 916 hours. This study fulfills neurological imaging criteria for inclusion or exclusion of acute stroke therapies based on available published neurological guidelines. Dictated by: Lenora Olivares M.D. on 12/10/2020 at 9:16 Approved by: Lenora Olivares M.D. on 12/10/2020 at 9:17 CTA - brain/neck: Radiologist's Impression: PROCEDURE: CT ANGIO HEAD AND NECK INDICATIONS: slurred speech since 0800 TECHNIQUE: Pre-contrast 4.5 mm thick sections acquired from the foramen magnum to the vertex. After the administration of intravenous contrast, 1 mm thick sections acquired from the aortic arch through the [place] of [place]. Post-contrast 4.5 mm thick sections then re- acquired from the foramen magnum to the vertex. 3-dimensional inswghl-qefakuopd-xyxlkskvkv (MIP) and/or volume rendering reformats were acquired of the central intracranial vasculature and neck separately. COMPARISON: [facility], MR, MR STROKE, 08/22/2019, 9:38. [facility], CT, CT STROKE, 12/10/2020, 9:02. FINDINGS: Image quality: Excellent. BRAIN: The ventricular system and cortical sulci demonstrate atrophy, consistent for the patient's stated age. There are areas of hypodensity within the periventricular and subcortical white matter. There is no acute intra-or extra axial fluid collection. No acute hemorrhage, mass lesion or midline shift. Brainstem is unremarkable. Globes are symmetrical. Sinuses are aerated. Osseous structures are intact. HEAD CT ANGIOGRAPHY: Anterior circulation: Intracranial internal carotid arteries are normal in size and flow. The flow within the paired anterior cerebral arteries is normal and symmetric. The flow within the middle cerebral arteries is normal and symmetric. The anterior communicating artery is seen. No aneurysms are seen. Posterior circulation: Visualized portions of the vertebral arteries demonstrate normal caliber, and join to form a normal appearing basilar artery. Flow within the posterior cerebral arteries is normal and symmetric. No aneurysms are seen. Left vertebral artery dominance is present. NECK CT ANGIOGRAPHY: The origins of the left and right common and external carotid arteries demonstrate no areas of hemodynamically significant stenosis, vascular occlusion or aneurysmal dilation. There is occlusion at the origin of the left internal carotid artery extending approximately 1 cm. This is progressive compared to prior exam. Calcifications are present. There is distal reconstitution of flow. There is near complete occlu lila of the right internal carotid artery at the origin, extending 1.1 cm, demonstrating a very minimal linear focus of enhancement traversing the segment. This is progressive compared to prior exam. Prominent calcifications are present. Distal reconstitution of flow is present. Origins of the left and right vertebral arteries demonstrate no areas of hemodynamically significant stenosis, vascular occlusion or aneurysmal dilation. 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 Limited, visualized portions of the subclavian vasculature are unremarkable. Mediastinal adenopathy is present. There is an anterior right paratracheal lymph node measuring 1.6 cm. In addition, left supraclavicular adenopathy is present with a 1.4 cm lymph node. IMPRESSION: 1. No acute intracranial process. 2. Moderate atrophy and chronic microvascular ischemic changes. 3. No areas of hemodynamically significant stenosis, vascular occlusion or aneurysmal dilation within the anterior or posterior circulation. 4. Occlusion at the origin of the left internal carotid artery as above with distal reconstitution of flow. This is progressive compared to prior exam. 5. Near complete occlusion with very minimal flow at the origin of the right internal carotid artery with distal reconstitution of flow. This is progressive compared to prior exam. 6. Mediastinal and supraclavicular adenopathy as above. This appears greater than expected to be reactive in nature. Further evaluation of potential malignancy should be considered. Any quantitative measurements of stenosis were performed using NASCET criteria. Dictated by: Samira Jj M.D. on 12/10/2020 at 9:48 MR: Radiologist's Impression: PROCEDURE: MR STROKE Pre- and post-contrast brain MRI, non-contrast brain MR angiogram, pre- and po stcontrast neck MR angiogram INDICATIONS: slurred speech TECHNIQUE: Brain: Noncontrast axial T1 spin echo, axial T2 fast spin echo, sagittal and axial FLAIR, coronal T2 fast spin echo, axial gradient echo, axial diffusion and ADC through the brain. After the administration of contrast, axial 3D VIBE of the cranial vasculature and brain. Brain MRA: Non-contrast 3-D time of flight MR angiogram, with multiple xgyjwqh-gjnhhloyb-bxkcdhvmsv (MIP) reformats performed. Neck MRA: Axial and sagittal TruFISP through the neck. Coronal dynamic MR angiogram during administration of contrast in the arterial and venous phases, with 3- dimenstional dcmxxcs-jyiubtifj-bmysaihgrp (MIP) reformats constructed from subtraction images. COMPARISON: [facility], US, US CAROTID DOPPLER BI, 09/12/2019, 14:19. [facility], CT, CT STROKE, 12/10/2020, 9:02. [facility], MR, MR STROKE, 2019, 9:38. FINDINGS: Image quality: Excellent. BRAIN: CSF spaces: Ventricles are normal in size and shape. Basal cisterns are patent. No extra-axial fluid collections. Brain: No intracranial bleeds or mass effects. Gutierrez-white matter interface is normal. Diffusion weighted images show no acute ischemic insults. Brainstem appears normal. Normal intravascular flow voids are present. No abnormal intracranial enhancement. Note is made of age-appropriate brain parenchymal volume loss and chronic small vessel ischemic changes. Skull and face: Calvarial marrow signal is normal. Orbits appear normal. Note is made of bilateral lens replacements. Sinuses: Sinuses and mastoids are clear. BRAIN MR ANGIOGRAM: Anterior circulation: Intracranial internal carotid arteries are normal in size and enhancement. There is a diminutive right A1 segment, with a corresponding robust left A1 segment. This is considered to be a normal developmental variant of the [place] of [place], of typically no clinical consequence. The flow within the paired anterior cerebral arteries is otherwise normal and symmetric. The flow within the middle cerebral arteries is normal and symmetric. The anterior communicating artery is seen. No stenoses, occlusions, or aneurysms. Posterior circulation: The visualized portions of the vertebral arteries demonstrate normal caliber, and join to form a normal appearing basilar artery. There is a prominent right posterior communicating artery seen, with an accompanying diminutive right P1 segment. This is attributed to a type origin of the right posterior cerebral artery, which is considered to be a normal developmental variant of typically no clinical consequence. The flow within the posterior cerebral arteries is normal and symmetric. No stenoses, occlusions, or aneurysms. NECK MR ANGIOGRAM: Carotids: Great vessels demonstrate a conventional anatomy as they arise from the aortic arch. The origins of the common carotid arteries appear patent. The calibers and courses of both common carotid arteries are normal. The bifurcation regions demonstrate high-grade stenosis (approximately 90%) on each side. The more distal internal carotid arteries demonstrate normal course and caliber. Posterior circulation: The origins of the vertebral arteries appear patent. More superior portions of both vertebral arteries demonstrate normal course and caliber, and join to form a normal appearing basilar artery. Miscellaneous: Subclavian arteries appear patent. Pre-contrast images through the neck show no soft tissue abnormalities. IMPRESSION: BRAIN MRI: No findings of acute or subacute infarction can be seen. Note is made of age-appropriate brain parenchymal volume loss and chronic small vessel ischemic changes. No masses or abnormal enhancement can be seen. BRAIN MR ANGIOGRAM: No significant intracranial arterial abnormality is seen. Azbvhp-xp-Hordcd developmental anomalies are incidentally noted. NECK MR ANGIOGRAM: High-grade stenoses seen involving both proximal internal carotid arteries, approximately 90% on each side. Dictated by: Lavon Hearn M.D. on 12/10/2020 at 10:07 ECG Data Interpretation: Normal sinus rhythm rate 80 p.r. interval 1 50 QRS [address] changes or T-wave inversions MDM Narrative Medical decision making narrative: Patient came in as boat stroke with slurring speech an NIH of 1. 935am Stroke team initially contacted Dr. Elmore, who has reviewed scans. At this time she has critical carotid stenosis low NIH. Recommends MRI. MRI shows bilateral carotid stenosis. 1230-Dr. Elmore re-contacted she has no new focal deficits and her speech seems to be improving. However because of critical carotid stenosis Dr. Elmore has contacted Dr. Piedra, neuro interventionalist who accepts the patient. Awaiting placement at [facility] Patient has been re-evaluated continues to remain stable with no new deficits Discharge Plan Departure Patient Disposition: [facility] Clinical Impression: Cerebrovascular accident, Carotid stenosis, bilateral Prescriptions: No Action Premarin 0.45 MG tablet 1 tab PO QAM Qty: 0 RF: 0 amlodipine 10 MG tablet 1 tab PO QPM Qty: 0 RF: 0 triamterene-hydrochlorothiazid [Dyazide] 37.5 MG/25 MG capsule 1 tab PO BEDTIME Qty: 0 RF: 0 metoprolol succinate 50 mg tablet extended release 24 hr 50 mg PO BID RF: 0 rosuvastatin 10 mg tablet 10 mg PO BEDTIME RF: 0 losartan 25 mg tablet 25 mg PO QAM RF: 0 Referrals: Kathy Cruz MD [Primary Care Provider] -
[2020-12-10 09:30] LABS: Alanine Aminotransferase 19 IU/L (<35); Albumin 4.4 g/dL (3.5-5.0); Albumin Globulin Ratio 1.3 (1.0-2.8); Alkaline Phosphatase 76 U/L (38-126); Aspartate Aminotransferase 27 IU/L (14-36); BUN Creatinine Ratio 24.2 (6-22); Bilirubin Total 0.4 mg/dL (0.2-1.3); Blood Urea Nitrogen 16 mg/dL (7-17); Calcium 9.8 mg/dL (8.4-10.2); Carbon Dioxide 28 mmol/L (22-32); Chloride 101 mmol/L (98-107); Creatine Kinase 30 U/L (30-135); Estimated Glomerular Filt Rate > 60.0 mL/min (>60); Globulin 3.3 g/dL (1.7-4.1); Glucose 152 mg/dL (80-110); HEMOLYSIS 37 (0-50); Potassium 4.1 mmol/L (3.4-5.1); Sodium 138 mmol/L (137-145); Total Protein 7.7 g/dL (6.3-8.2)
[2020-12-10 09:35] LABS: Troponin I < 0.012 ng/mL (0.01-0.034)
--- NOTE | 2020-12-10 09:37 | DI.MRI.S_ITS ---
PROCEDURE: MR STROKE Pre- and post-contrast brain MRI, non-contrast brain MR angiogram, pre- and postcontrast neck MR angiogram INDICATIONS: slurred speech TECHNIQUE: Brain: Noncontrast axial T1 spin echo, axial T2 fast spin echo, sagittal and axial FLAIR, coronal T2 fast spin echo, axial gradient echo, axial diffusion and ADC through the brain. After the administration of contrast, axial 3D VIBE of the cranial vasculature and brain. Brain MRA: Non-contrast 3-D time of flight MR angiogram, with multiple aazfobh-naphqpxwa-nojaubmnpm (MIP) reformats performed. Neck MRA: Axial and sagittal TruFISP through the neck. Coronal dynamic MR angiogram during administration of contrast in the arterial and venous phases, with 3-dimenstional paggaqx-nbghjjxai-lrhmuammzy (MIP) reformats constructed from subtraction images. COMPARISON: [facility], US, US CAROTID DOPPLER BI, 09/12/2019, 14:19. [facility], CT, CT STROKE, 12/10/2020, 9:02. [facility], MR, MR STROKE, 08/22/2019, 9:38. FINDINGS: Image quality: Excellent. BRAIN: CSF spaces: Ventricles are normal in size and shape. Basal cisterns are patent. No extra-axial fluid collections. Brain: No intracranial bleeds or mass effects. Gutierrez-white matter interface is normal. Diffusion weighted images show no acute ischemic insults. Brainstem appears normal. Normal intravascular flow voids are present. No abnormal intracranial enhancement. Note is made of age-appropriate brain parenchymal volume loss and chronic small vessel ischemic changes. Skull and face: Calvarial marrow signal is normal. Orbits appear normal. Note is made of bilateral lens replacements. Sinuses: Sinuses and mastoids are clear. BRAIN MR ANGIOGRAM: Anterior circulation: Intracranial internal carotid arteries are normal in size and enhancement. There is a diminutive right A1 segment, with a corresponding robust left A1 segment. This is considered to be a normal developmental variant of the rosebud of [place], of typically no clinical consequence. The flow within the paired anterior cerebral arteries is otherwise normal and symmetric. The flow within the middle cerebral arteries is normal and symmetric. The anterior communicating artery is seen. No stenoses, occlusions, or aneurysms. Posterior circulation: The visualized portions of the vertebral arteries demonstrate normal caliber, and join to form a normal appearing basilar artery. There is a prominent right posterior communicating artery seen, with an accompanying diminutive right P1 segment. This is attributed to a type origin of the right posterior cerebral artery, which is considered to be a normal developmental variant of typically no clinical consequence. The flow within the posterior cerebral arteries is normal and symmetric. No stenoses, occlusions, or aneurysms. NECK MR ANGIOGRAM: Carotids: Great vessels demonstrate a conventional anatomy as they arise from the aortic arch. The origins of the common carotid arteries appear patent. The calibers and courses of both common carotid arteries are normal. The bifurcation regions demonstrate high-grade stenosis (approximately 90%) on each side. The more distal internal carotid arteries demonstrate normal course and caliber. Posterior circulation: The origins of the vertebral arteries appear patent. More superior portions of both vertebral arteries demonstrate normal course and caliber, and join to form a normal appearing basilar artery. Miscellaneous: Subclavian arteries appear patent. Pre-contrast images through the neck show no soft tissue abnormalities. IMPRESSION: BRAIN MRI: No findings of acute or subacute infarction can be seen. Note is made of age-appropriate brain parenchymal volume loss and chronic small vessel ischemic changes. No masses or abnormal enhancement can be seen. BRAIN MR ANGIOGRAM: No significant intracranial arterial abnormality is seen. Mtwoov-cc-Jmxieo developmental anomalies are incidentally noted. NECK MR ANGIOGRAM: High-grade stenoses seen involving both proximal internal carotid arteries, approximately 90% on each side. Dictated by: Lavon Hearn M.D. on 12/10/2020 at 10:07 Approved by: Lavon Hearn M.D. on 12/10/2020 at 10:11
[2020-12-10] MEDS: SODIUM CHLORIDE 0.9% 1,000 ML 150 ML IV (09:52)
[2020-12-10 10:00] LABS: Prothrombin Time 11.7 SECONDS (10.1-12.7)
[2020-12-10 10:02] LABS: PTT Partial Thromboplastin Tim 33 SECONDS (26.4-36.2)
[2020-12-10] MEDS: LORazepam 2 MG/ML INJ 1 MG IV (10:23)
[2020-12-10 12:47] LABS: COVID19 - ADMIT (NP swab/PCR) Negative (Negative)
--- NOTE | 2020-12-10 18:11 | PC.NURSE ---
[place] [phone] report given to clau collado
[2020-12-10] MEDS: AMLODIPINE 5 MG TABLET 10 MG PO (18:42)
[2020-12-10] MEDS: METOPROLOL IR 25 MG TABLET 50 MG PO (18:42)
== END 2020-12-10 19:16 | disposition short-term general hospital (02) ==
PROVIDERS: Emergency Provider Emergency Medicine; PCP Family Medicine
DX: I63.9 Cerebral infarction, unspecified (principal); I65.23 Occlusion and stenosis of bilateral carotid arteries; Z79.01 Long term (current) use of anticoagulants; Z20.822 Contact with and (suspected) exposure to COVID-19
CPT/HCPCS: 36415; 70450; 70496; 70498; 70548; 70553; 80053; 81003; 82550; 84484; 85025; 85610; 85730; 87635; 93005; 96361; 96374; 99285; C9803; J2060

== ENCOUNTER → 2021-02-09 15:56 | Outpatient (CLI) | payer OTHER, SELFPAY ==
--- NOTE | 2021-02-09 15:58 | DI.RAD.S_ITS ---
PROCEDURE: XR CHEST 2V INDICATIONS: COUGH TECHNIQUE: 2 views of the chest were acquired. COMPARISON: [facility], CR, XR CHEST 2V, 11/12/2020, 13:59. FINDINGS: Surgical changes and devices: None. Lungs and pleura: Lungs are clear. No pleural effusions or pneumothorax. Mediastinum: Mediastinal contours are normal. Heart size is normal. Bones and chest wall: No suspicious bony abnormalities. Soft tissues appear unremarkable. IMPRESSION: No acute cardiopulmonary pathology. Dictated by: oYung Hunter M.D. on 02/09/2021 at 18:01 Approved by: Young Hunter M.D. on 02/09/2021 at 18:02
== END ==
PROVIDERS: PCP Family Medicine; Referring Provider Family Medicine; Visit Provider Family Medicine
DX: R05 Cough (principal); S19.83XA Other specified injuries of vocal cord, initial encounter
CPT/HCPCS: 71046

== ENCOUNTER → 2021-04-07 09:44 | Outpatient (CLI) | payer OTHER, SELFPAY ==
[2021-04-07 11:10] LABS: BUN Creatinine Ratio 13.8 (6-22); Blood Urea Nitrogen 15 mg/dL (7-17); Calcium 9.9 mg/dL (8.4-10.2); Carbon Dioxide 29 mmol/L (22-32); Chloride 102 mmol/L (98-107); Estimated Glomerular Filt Rate 49.1 mL/min (>60); Glucose 135 mg/dL (80-110); HEMOLYSIS < 15 (0-50); Potassium 4.1 mmol/L (3.4-5.1); Sodium 142 mmol/L (137-145)
[2021-04-07 11:13] LABS: Add Manual Diff / Slide Review NO; Basophils Absolute Auto 100 /uL (0-100); Eosinophils Absolute Auto 400 /uL (0-450); Eosinophils Percent Auto 5.6 % (2-4); Hemoglobin 10.9 g/dL (12.0-16.0); Lymphocytes Absolute Auto 1600 /uL (1100-4500); Lymphocytes Percent Auto 22.7 % (25-40); Mean Corpuscular HGB Conc 33.2 % (30-36); Mean Corpuscular Hemoglobin 27.7 PG (26-34); Mean Corpuscular Volume 83.7 fL (80-100); Monocytes Absolute Auto 800 /uL (0-900); Monocytes Percent Auto 11.2 % (3-14); Neutrophils Absolute Auto 4200 /uL (1500-7000); Neutrophils Percent Auto 59.5 % (50-75); Platelet Count 254 X10^3/uL (150-400); Red Blood Cell Count 3.94 X10^6/uL (4.0-5.2); Red Cell Distribution Width 14.2 % (11.6-14.8)
[2021-04-07 11:37] LABS: TSH w/ Reflex to FT4 1.64 uIU/mL (0.47-4.68)
== END ==
PROVIDERS: PCP Family Medicine; Referring Provider Family Medicine; Visit Provider Family Medicine
DX: R05.9 Cough, unspecified (principal); I10 Essential (primary) hypertension; R73.01 Impaired fasting glucose; I63.239 Cerebral infarction due to unspecified occlusion or stenosis of unspecified carotid artery
CPT/HCPCS: 36415; 80048; 84443; 85025

== ENCOUNTER → 2021-04-08 11:06 | Outpatient (CLI) | payer OTHER, SELFPAY ==
--- NOTE | 2021-04-08 11:10 | DI.CT.S_ITS ---
PROCEDURE: CT CHEST W CON INDICATIONS: COUGH UNSPECIFIED TECHNIQUE: After the administration of intravenous contrast, 5 mm thick sections acquired from the pulmonary apices to the posterior costophrenic angles. 1 mm axial lung, 5 mm thick coronal and sagittal reformats and 7 mm axial MIP were acquired. For radiation dose reduction, the following was used: automated exposure control, adjustment of mA and/or kV according to patient size. COMPARISON: [facility], CT, CT ANGIO HEAD AND NECK, 12/10/2020, 9:02. [facility], CR, XR CHEST 2V, 11/12/2020, 13:59. FINDINGS: Image quality: Excellent. Lungs and pleura: No acute air space opacities. No septal thickening or nodularity. No suspicious pulmonary nodules. No pleural effusions or pneumothorax. Central and peripheral airways are patent and normal in caliber. Mediastinum: Heart size is normal. Mild scattered atherosclerotic calcifications of the coronary arteries are noted. No pericardial effusion. No hilar adenopathy by size criteria. Redemonstration of prominent mediastinal lymph nodes which appear relatively stable compared to prior CT. 2 largest are seen in the right paratracheal region measuring 1.7 cm more superiorly (image 20/series 2). The largest is seen in the precarinal region on the right measuring 2.5 x 2.2 cm (image 23/series 2). Thoracic aorta and central pulmonary arteries are normal in size. Esophagus is normal in caliber. No hiatal hernia. Bones and chest wall: No suspicious bony lesions. No vertebral body compression fractures. No axillary adenopathy by size criteria. Thyroid gland is unremarkable. Redemonstration of moderate supraclavicular adenopathy most pronounced on the left. This is not significantly changed compared to prior studies. The largest is seen in the supraclavicular region adjacent to the thyroid and lateral to the internal jugular vein measuring approximately 2.3 x 1.8 cm (image 9/series 2). No internal mammary chain adenopathy. Abdomen: Visualized upper abdominal solid organs appear unremarkable with decompressed gallbladder. Upper abdominal bowel loops are normal in caliber. IMPRESSION: 1. CT chest without acute cardiopulmonary abnormalities. No focal airspace disease or pulmonary nodules/masses. 2. Redemonstration of supraclavicular and mediastinal adenopathy which appear greater than expected for reactive etiology. Overall, these are relatively stable. Recommend further evaluation for potential malignancy if not already accomplished. Dictated by: Jayden Cannon M.D. on 04/08/2021 at 17:30 Approved by: Jayden Cannon M.D. on 04/08/2021 at 17:41
== END ==
PROVIDERS: PCP Family Medicine; Referring Provider Family Medicine; Visit Provider Family Medicine
DX: R05.9 Cough, unspecified (principal)
CPT/HCPCS: 71260

== ENCOUNTER → 2021-04-21 11:29 | Outpatient (CLI) | payer OTHER, SELFPAY ==
[2021-04-21 13:34] LABS: COVID19 -Nasal RAPID Negative (Negative)
== END ==
PROVIDERS: PCP Family Medicine; Referring Provider Internal Medicine; Visit Provider Internal Medicine
DX: Z20.822 Contact with and (suspected) exposure to COVID-19 (principal)
CPT/HCPCS: 87635; C9803

== ENCOUNTER → 2021-04-22 10:54 | Outpatient (CLI) | payer OTHER, SELFPAY ==
--- NOTE | 2021-04-27 08:46 | PM.PFT.1 ---
Pulmonary Function Test Referral & Results Date Patient Seen: 04/22/21 Requesting provider: Kathy Cruz Indication: Cough Results: The spirometry demonstrates an FVC of 2.16 L which is 95% of predicted. The FEV1 was measured at 1.89 L which is 112% of predicted. The FEV1/FVC ratio was 88 which is 117% of predicted. Following the administration of bronchodilator there was no appreciable change to above normal numbers Lung volumes show an SVC of 2.15 L which is 94% of predicted. The diffusing capacity was measured at 16.27 which is 92% of predicted. The maximum voluntary ventilation was minimally reduced Interpretation: This study demonstrates normal pulmonary function. There is a minimal reduction in maximum voluntary ventilation which in the absence of any spirometric abnormalities might suggest the presence of neuromuscular disease Clinical correlation suggested
== END ==
PROVIDERS: PCP Family Medicine; Referring Provider Family Medicine; Visit Provider Family Medicine
DX: R05.3 Chronic cough (principal)
CPT/HCPCS: 94060; 94726; 94729

== ENCOUNTER → 2021-05-24 09:44 | Outpatient (CLI) | payer OTHER, SELFPAY ==
--- NOTE | 2021-05-24 | DI.US.S_ITS ---
PROCEDURE: US SOFT TISSUE HEAD AND NECK INDICATIONS: LEFT SUPRACLAVICULAR LYMPHADENOPATHY - ASSESS FOR BIOPSY TECHNIQUE: Real-time scanning was performed of the neck region of interest, with image documentation. COMPARISON: [facility], CT, CT CHEST W CON, 04/08/2021, 11:44. FINDINGS: Multiple enlarged lymph nodes are present bilaterally as was seen on prior CT scan, largest of which is on the left measuring up to 1.8 cm in maximal diameter which is amenable to sonographically directed percutaneous biopsy. IMPRESSION: Lymphadenopathy bilaterally with the largest lymph node on the left measuring up to 1.8 cm which is amenable to sonographically directed percutaneous biopsy. Dictated by: Brian GAONA Interpreted: Celeste Jarquin MD on 05/24/2021 at 10:32 Transcribed by: STEPHANIE on 05/24/2021 at 10:36 Approved by: Celeste Jarquin MD, PhD on 05/24/2021 at 14:24
== END ==
PROVIDERS: PCP Family Medicine; Referring Provider Family Medicine; Visit Provider Family Medicine
DX: R59.0 Localized enlarged lymph nodes (principal)
CPT/HCPCS: 76536

== ENCOUNTER → 2021-06-16 09:59 | Outpatient (CLI) | payer OTHER, SELFPAY ==
--- NOTE | 2021-06-16 | PATH_ITS ---
[facility] Accession Number: [id number] . 01 Material submitted: . skin - LEFT SUPRACLAVICULAR MASS . 01 Diagnosis: Left Supraclavicular Mass, Imaged Guided Core Biopsy: Scant viable poorly differentiated carcinoma, favor squamous cell type (see comment). [facility] 06/21/2021 1634 Local . 01 Comment: The needle core fragments are composed primarily of inflamed desmoplastic stromal tissue or necrotic tumor with very scant viable nests of carcinoma cells, which are relatively large with moderately abundant eosinophilic cytoplasm and pleomorphic hyperchromatic nuclei. Distinct keratinization or glandular forms are not identified. A panel of *immunostains is obtained to further characterize, with the controls stained appropriately. The tumor shows the following results: . Broad spectrum cytokeratins (CARMINA) - Uniformly positive. Cytokeratin 7 - Negative. Cytokeratin 20 - Negative. P40 - Uniformly positive. TTF-1 - Negative. Napsin - Negative. SHILO-3 - Negative. Estrogen receptor - Negative. PAX-8 - Negative. . The results of the immunohistochemistry panel are considered suggestive of a squamous cell carcinoma, yet not diagnostic, given the quantitative limits of the viable tumor in the biopsy. Specifically, a squamous immunophenotype is supported with the usual cytokeratin 7 negative/cytokeratin 20 negative profile and high level expression with p40. The possible sites of origin for this potential squamous cell carcinoma cannot be determined immunophenotypically. Also considered in the differential based on the immunophenotype is the possibility of a basal subtype of breast carcinoma. Otherwise, there is no evidence for a conventional type of breast carcinoma (negative SHILO-3/estrogen receptor) or metastatic adenocarcinoma from lung (negative TTF-1/napsin). Furthermore, there is no evidence for metastatic renal cell carcinoma (negative PAX-8) or carcinoma from gynecologic tract (negative PAX-8/ER). . The results of this case are discussed by Dr. Fernandez with Dr. Baker on 06/21/2021 at 3:20 PM. He reports that the patient at this juncture does not have a known primary. A recent CT scan of the chest showed mediastinal and supraclavicular adenopathy. . * This test was developed and its performance characteristics determined by [employer]. It has not been cleared or approved by the U.S. Food and Drug Administration. The FDA has determined that such clearance or approval is not necessary. This test is used for clinical purposes. It should not be regarded as investigational or for research. . 01 Electronically signed: . Aster Fernandez MD, Pathologist NPI- [id number] . 01 Gross description: . LEFT SUPRACLAVICULAR MASS: Received in formalin are 2 fragment(s) of falcon, soft tissue measuring 0.8 x 0.1 x 0.1 cm to 0.9 x 0.1 x 0.1 cm submitted entirely in 1 cassette(s) /DONALD 06/17/2021 [facility] Local . 01 Pathologist provided ICD-10: R22.1 . 01 CPT . 211666, K95746, T91132 Performed at: 01 [facility] [address] [place] [address], [place], [place] [id number] MD Khari Metcalf MD Phone: [phone]
--- NOTE | 2021-06-16 10:00 | DI.US.S_ITS ---
PROCEDURE: US BIOPSY LYMPH NODE INDICATIONS: SUPRACLAVICULAR MASS TECHNIQUE: The indications, alternatives, benefits, risks, and complications of the procedure were explained to the patient. Written informed consent was obtained and placed in the chart. Real-time sonography was utilized to choose the site for percutaneous lymph node sampling. The skin was prepped and draped in the usual sterile fashion. 1% lidocaine was infiltrated down to the site of interest. A coaxial needle was then advanced into the site of interest under direct sonographic visualization. A biopsy apparatus was then utilized, and core biopsies were obtained. The needle was then withdrawn; a bandage was applied to the biopsy site. COMPARISON: None. FINDINGS: Biopsy site(s): Left lower cervical adenopathy Needle: Subway biopsy needle set. Number of passes: 4 Medications: 1% lidocaine for local anaesthesia. Complications: None. IMPRESSION: Successful ultrasound-guided left inferior cervical lymph node biopsy, with pathology results pending. Dictated by: Lenora Olivares M.D. on 06/16/2021 at 16:56 Approved by: Lenora Olivares M.D. on 06/16/2021 at 16:56
== END ==
PROVIDERS: PCP Family Medicine; Referring Provider Family Medicine; Visit Provider Family Medicine
DX: R22.1 Localized swelling, mass and lump, neck (principal)
CPT/HCPCS: 38505; 76942

== ENCOUNTER → 2021-06-27 09:21 | Outpatient (CLI) | payer OTHER, SELFPAY ==
--- NOTE | 2021-06-27 10:49 | DI.CT.S_ITS ---
PROCEDURE: CT ABDOMEN PELVIS W CON INDICATIONS: Unspecified abdominal pain TECHNIQUE: After the administration of oral and IV contrast, axial sections were acquired from the lung bases to the pubic symphysis. Coronal and sagittal reformats were performed. For radiation dose reduction, the following was used: automated exposure control, adjustment of mA and/or kV according to patient size. COMPARISON: [facility], US, US BIOPSY LYMPH NODE, 06/16/2021, 10:56. [facility], US, US SOFT TISSUE HEAD AND NECK, 05/24/2021, 9:48. FINDINGS: Image quality: Excellent. Lung bases: Unremarkable. Heart: No significant findings. ABDOMEN: Liver: Hepatic steatosis is present. Gallbladder: Gallbladder demonstrates mild appearance of thickening. Biliary ducts: Unremarkable. Pancreas: There is a slight prominence of the uncinate process without abnormal enhancement. No priors are available for comparison. There is a slightly prominent appearance of both the common and pancreatic ducts. Spleen: Unremarkable. Adrenal Glands: Unremarkable. Kidneys and Ureters: Unremarkable. Stomach and Bowel: Stomach, small bowel loops, and colon are unremarkable. Scattered colonic diverticula are present. Peritoneum: No abnormal intraperitoneal fluid. No free air. Ventral Wall: No hernia. Abdominal Nodes: Multiple retroperitoneal lymph nodes are identified. There is a left periaortic node on series 2, image 30 measuring 2.2 x 2.5 cm. Multiple aortic caval lymph nodes are identified, the largest on series 2, image 29 measuring 1.4 x 1.9 cm. There is a peripancreatic lymph node on series 2, image 24 measuring 1.2 cm short axis. Multiple perigastric lymph nodes are present, the largest on series 2, image 20 measuring 1.6 cm in short axis. Periportal lymph nodes are present the largest measuring 1.5 cm in short axis on series 2, image 23. In addition, there is an enhancing lymph node posterior to the vena cava on series 2, image 27 measuring 1.8 x 1.6 cm. Vessels: Aorta and inferior vena cava are normal in size. PELVIS: Pelvic Organs: Unremarkable. Bladder: Unremarkable. Pelvic Nodes: No enlarged lymph nodes. Miscellaneous: No inguinal hernias are seen. Bones: Unremarkable. IMPRESSION: Multiple enlarged lymph nodes identified within the abdomen as above. Given enlarged lymph nodes within the neck, finding is overall concerning for lymphoma or other malignant process. Further evaluation is recommended. Mildly thickened appearance of the gallbladder wall possibly secondary to incomplete distention. If this area is of concern, ultrasound is recommended. Slightly prominent appearance of the uncinate process without abnormal enhancement. While this is suspected to be related to normal variation, given the slight prominence of the adjacent ducts, further evaluation with CT or MR with pancreatic protocol is recommended to definitively exclude lesion. Dictated by: Samira Jj M.D. on 06/27/2021 at 12:30 Approved by: Samira Jj M.D. on 06/27/2021 at 12:55
== END ==
PROVIDERS: PCP Family Medicine; Referring Provider Family Medicine; Visit Provider Family Medicine
DX: R10.9 Unspecified abdominal pain (principal); R59.1 Generalized enlarged lymph nodes
CPT/HCPCS: 74177; Q9967

== ENCOUNTER → 2021-07-08 09:21 | Outpatient (CLI) | payer OTHER, SELFPAY ==
[2021-07-08 12:52] LABS: COVID19 - ADMIT (NP swab/PCR) Negative (Negative)
== END ==
PROVIDERS: PCP Family Medicine; Visit Provider Family Medicine Sleep Medicine
DX: Z20.822 Contact with and (suspected) exposure to COVID-19 (principal)
CPT/HCPCS: C9803; U0003; U0005

== ENCOUNTER → 2021-07-29 13:05 | Outpatient (CLI) | payer OTHER, SELFPAY ==
[2021-07-29 14:37] LABS: COVID19 -Nasal RAPID POSITIVE (Negative)
== END ==
PROVIDERS: PCP Family Medicine; Visit Provider Surgery
DX: Z01.812 Encounter for preprocedural laboratory examination (principal); Z20.822 Contact with and (suspected) exposure to COVID-19
CPT/HCPCS: 87635; C9803

== ENCOUNTER → 2021-08-01 10:41 | Outpatient (CLI) | payer OTHER, SELFPAY ==
[2021-08-01 13:11] LABS: COVID19 -Nasal RAPID Negative (Negative)
== END ==
PROVIDERS: PCP Family Medicine; Visit Provider Surgery
DX: Z01.812 Encounter for preprocedural laboratory examination (principal); Z20.822 Contact with and (suspected) exposure to COVID-19
CPT/HCPCS: 76000; 87635

== ENCOUNTER 2021-08-01 14:51 | Day surgery (SDC) | payer OTHER, SELFPAY ==
[2021-08-01] VITALS (11 sets, daily range): BP systolic 117–169; BP diastolic 61–80; PULSE 11–89; RESP 12–76; TEMP 36.2–36.8; O2SAT 94–98; BMI 30.9
--- NOTE | 2021-08-01 | DI.RAD.S_ITS ---
PROCEDURE: XR CHEST 1V INDICATIONS: POST PORT A CATH TECHNIQUE: One view of the chest was acquired. COMPARISON: [facility], CT, CT CHEST W CON, 04/08/2021, 11:44. [facility], CR, XR CHEST 2V, 02/09/2021, 15:56. FINDINGS: Surgical changes and devices: There is a Port-A-Cath with the tip projecting to the area of right atrium. Lungs and pleura: Shallow inspiration with left basilar atelectasis. No pleural effusions or pneumothorax. Mediastinum: Mediastinal contours appear normal. Heart size is normal. Bones and chest wall: No suspicious bony lesions. Overlying soft tissues appear unremarkable. IMPRESSION: Port-A-Cath tip projecting to the area of right atrium. Dictated by: Anitha Hernandez M.D. on 08/01/2021 at 17:51 Approved by: Anitha Hernandez M.D. on 08/03/2021 at 7:54
[2021-08-01] MEDS: LACTATED RINGERS 1,000 ML 100 ML IV (15:31)
--- NOTE | 2021-08-01 15:37 | PM.HP.1 ---
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 No previous indwelling venous catheter. She is currently feeling well today. Patient History Medical History Elevated cholesterol FH: carotid endarterectomy Hepatic steatosis Hypertension Night sweats Swollen lymph nodes TIA (transient ischemic attack) Surgical History History of hysterectomy Family & Social History Social History: household members spouse Tobacco & Substance use: Smoking Status Never smoker alcohol intake current alcohol intake frequency a few times a week Substance Use Type does not use Meds Home Medications and Allergies Home Medications Medication Instructions Recorded Confirmed Type amlodipine 10 mg tablet 1 tab PO QPM #0 09/21/17 08/01/21 History losartan 25 mg tablet 25 mg PO QAM 12/10/20 08/01/21 History metoprolol succinate 50 mg 50 mg PO BID 12/10/20 08/01/21 History tablet,extended release 24 hr rosuvastatin 10 mg tablet 10 mg PO BEDTIME 12/10/20 08/01/21 History meloxicam 7.5 mg PO PRN PRN 06/07/21 08/01/21 History ondansetron HCl 4 mg tablet 4 mg PO Q6H PRN #30 tab 07/07/21 07/29/21 Rx oxycodone-acetaminophen 5 mg-325 1 tab PO Q8H PRN #120 tab 07/07/21 07/29/21 Rx mg tablet acetaminophen 500 mg tablet 500 mg PO Q6H PRN 08/01/21 08/01/21 History Allergies Allergy/AdvReac Type Severity Reaction Status Date / Time Penicillins Allergy Mild Rash Verified 08/01/21 15:35 Exam Vital Signs (past 8 hours): - 08/01/21 15:16 Temperature 98.2 F Pulse Rate 89 Respiratory Rate 16 Blood Pressure 169/80 H Pulse Oximetry 95 Oxygen Delivery Method Room Air Narrative Exam Narrative: General elderly female alert oriented no acute distress Chest nonlabored respirations Abdomen soft nontender Extremities warm well perfused. 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 Technical details of the procedure were discussed with the patient. Operative risks including bleeding, infection, mechanical device failure, pneumothorax were discussed. Her questions have been answered she is in agreement with this plan will proceed. Time Spent With Patient Critical Care time: I spent a total of [] minutes of critical care time on this patient's care today; this time is exclusive of procedural time.
[2021-08-01] MEDS: CLINDAMYCIN 900 MG/50 ML PIGGYBACK 50 MG IV (15:56)
--- NOTE | 2021-08-01 16:03 | SUR.OPER ---
Supine on padded OR bed, head on pillow, right arm padded and tucked at side, left arm on padded arm board at less than 90 degrees. Legs uncrossed, safety belt at thigh, tape over blanket over lower legs .
[2021-08-01] MEDS: BUPIVACAINE 0.25% (PF) VIAL 30 ML INJ (16:10)
[2021-08-01] MEDS: HEPARIN 5,000 UNIT, SODIUM CHLORIDE 0.9% 50 ML IV (16:11)
--- NOTE | 2021-08-01 16:32 | PM.OP.1 ---
Operative Date/Time/Diagnoses Date of procedure: 08/01/21 Time of procedure: 16:32 Pre-op diagnosis: squamous cell carcinoma Post-op diagnosis: same Procedure & Clinicians Procedure: port a cath placement Same procedure as scheduled: Yes Indications: squamous cell carcinoma unknown primary Surgeon: Jose R Clemente Click Yes if Unassisted: Yes Anesthesia Type: General Operative Notes Findings: tip of the catheter projects into the SVC. Specimen(s): none sent Estimated Blood Loss (mL): 10 Procedure in detail: Patient was brought to the operating room placed supine on table. Bilateral lower extremity compressive devices were applied. General anesthesia was induced and she was intubated with an LMA. She was then prepped and draped in usual sterile fashion. Time-out was performed ensure the correct patient procedure necessary equipment within the operating room. Received clindamycin prior to skin. Under ultrasound guidance the right internal jugular vein was accessed under direct visualization. The guidewire was then threaded through the needle. Its placement was then confirmed using fluoroscopy. The dilator was then placed over the guidewire. The catheter was then inserted through the sheath. Placement was again confirmed with fluoroscopy. A subcutaneous pocket was made in the right chest wall. The tunneler device was used to move the catheter from the neck to the chest pocket. The port was attached after it was primed with heparined saline. The port was tested to ensure that it flushed easily and had good blood return. The port was then secured to the underlying fascia using interupted 0 Prolene suture. Hemostasis was achieved. The wound was irrigated with sterile saline. The subcutaneous tissues were reapproximated with the 3 0 Vicryl and then skin closed with 4-0 Monocryl. The skin was sealed with Dermabond. Patient tolerated procedure well. The sponge and instrument count at the end operation was correct. Patient emerged from general anesthesia was extubated and taken to the postoperative care unit in stable condition Complications: none Post-operative Condition: stable Disposition: same day surgery
--- NOTE | 2021-08-01 17:39 | SUR.PHASEII ---
Pt up, steady on feet. Denies pain. Breathing without difficulty and lungs clear. DC to home with spouse.
== END 2021-08-01 17:35 | disposition home or self-care (01) ==
PROVIDERS: PCP Family Medicine; Referring Provider Surgery; Visit Provider Surgery
PROC: (CPT 36561; principal; 2021-08-01 15:30)
DX: C79.9 Secondary malignant neoplasm of unspecified site (principal); Z20.822 Contact with and (suspected) exposure to COVID-19; I10 Essential (primary) hypertension
CPT/HCPCS: 36561; 71045; 76000; 82962; 87635; C9803; C1788; J1644; J2250; J3010

== ENCOUNTER 2021-09-28 15:58 | Emergency (ER) | payer OTHER, SELFPAY ==
[2021-09-28 16:14] VITALS: BP 160/89; PULSE 94; RESP 20; TEMP 37.7; O2SAT 96; BMI 31.2
--- NOTE | 2021-09-28 16:21 | DI.RAD.S_ITS ---
PROCEDURE: XR CHEST 1V INDICATIONS: chest pain TECHNIQUE: One view of the chest was acquired. COMPARISON: [facility], CR, XR CHEST 1V, 08/01/2021, 16:35. FINDINGS: Surgical changes and devices: Right Port-A-Cath is unchanged. Lungs and pleura: Mild appearance of left basilar/retrocardiac opacity with blunting of the costophrenic angle.. Mediastinum: Mediastinal contours appear normal. Heart size is normal. Bones and chest wall: No suspicious bony lesions. Overlying soft tissues appear unremarkable. IMPRESSION: Mild left effusion with retrocardiac opacities suggestive of pneumonia, focal effusion versus atelectasis. Dictated by: Samira Jj M.D. on 09/28/2021 at 16:50 Approved by: Samira Jj M.D. on 09/28/2021 at 16:51
[2021-09-28 17:17] VITALS: BP 136/64; PULSE 84; RESP 15; O2SAT 97
[2021-09-28 17:42] LABS: Alanine Aminotransferase 27 IU/L (<35); Albumin 4.4 g/dL (3.5-5.0); Albumin Globulin Ratio 1.3 (1.0-2.8); Alkaline Phosphatase 150 U/L (38-126); Aspartate Aminotransferase 34 IU/L (14-36); BUN Creatinine Ratio 24.4 (6-22); Bilirubin Total 0.6 mg/dL (0.2-1.3); Blood Urea Nitrogen 21 mg/dL (7-17); Calcium 10.2 mg/dL (8.4-10.2); Carbon Dioxide 32 mmol/L (22-32); Chloride 99 mmol/L (98-107); Creatine Kinase 27 U/L (30-135); Estimated Glomerular Filt Rate > 60 mL/min (>60); Globulin 3.5 g/dL (1.7-4.1); Glucose 152 mg/dL (80-110); HEMOLYSIS < 15 (0-50); Lipase 29 U/L (23-300); Potassium 4.2 mmol/L (3.4-5.1); Sodium 139 mmol/L (137-145); Total Protein 7.9 g/dL (6.3-8.2)
[2021-09-28 17:49] LABS: Add Manual Diff / Slide Review NO; Basophils Absolute Auto 0 /uL (0-100); Basophils Percent Auto 0.5 % (0-2); Eosinophils Absolute Auto 100 /uL (0-450); Eosinophils Percent Auto 1.6 % (2-4); Hematocrit 33.3 % (36-46); Hemoglobin 11.2 g/dL (12.0-16.0); Lymphocytes Absolute Auto 1800 /uL (1100-4500); Lymphocytes Percent Auto 23.2 % (25-40); Mean Corpuscular HGB Conc 33.6 % (30-36); Mean Corpuscular Hemoglobin 28.5 PG (26-34); Mean Corpuscular Volume 84.9 fL (80-100); Monocytes Absolute Auto 900 /uL (0-900); Monocytes Percent Auto 11.6 % (3-14); Neutrophils Absolute Auto 5000 /uL (1500-7000); Neutrophils Percent Auto 63.1 % (50-75); Platelet Count 243 X10^3/uL (150-400); Red Blood Cell Count 3.93 X10^6/uL (4.0-5.2); Red Cell Distribution Width 15.9 % (11.6-14.8); White Blood Cell Count 7.9 X10^3/uL (4.5-11.0)
[2021-09-28 17:53] LABS: Troponin I < 0.012 ng/mL (0.01-0.034)
--- NOTE | 2021-09-28 17:57 | ED.CHESTPAIN ---
HPI - Chest Pain General Chief Complaint: Chest Pain Stated Complaint: Eval for pulminary embolism. ref dr. 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 She actually says that she has had this weird pain ongoing for a number of weeks however she was just on airplane back from [place] when she had worsening pain. She says it hurts to breathe. She took an oxycodone earlier today she said it did not help. She denies any nausea or vomiting. She has no shortness of breath with exertion. She really does not have any chest pain or palpitations. No fever or chills. Related Data Home Medications Medication Instructions Recorded Confirmed amlodipine 10 mg tablet 1 tab PO QPM #0 09/21/17 08/01/21 losartan 25 mg tablet 25 mg PO QAM 12/10/20 08/01/21 metoprolol succinate 50 mg 50 mg PO BID 12/10/20 08/01/21 tablet,extended release 24 hr rosuvastatin 10 mg tablet 10 mg PO BEDTIME 12/10/20 08/01/21 meloxicam 7.5 mg PO PRN PRN 06/07/21 08/01/21 acetaminophen 500 mg tablet 500 mg PO Q6H PRN 08/01/21 08/01/21 aspirin 81 mg tablet,delayed 81 mg PO DAILY 08/01/21 08/01/21 release Previous Rx's Medication Instructions Recorded ondansetron HCl 4 mg tablet 4 mg PO Q6H PRN #30 tab 07/07/21 oxycodone-acetaminophen 5 mg-325 1 tab PO Q8H PRN #120 tab 07/07/21 mg tablet lidocaine-prilocaine 2.5 %-2.5 % 1 applic TOPICAL PRN PRN #30 g 08/23/21 topical cream furosemide 20 mg tablet (Lasix) 20 mg PO QAM #4 tab 09/28/21 Allergies Allergy/AdvReac Type Severity Reaction Status Date / Time Penicillins Allergy Mild Rash Verified 09/28/21 16:21 Review of Systems Review of Systems Narrative: GENERAL: Denies chills, fatigue, malaise, fever, sweats, travel HEENT: Denies sinus pain, ear pain, sore throat, difficulty swallowing, neck pain RESPIRATORY: Denies dyspnea, cough, wheezing, hemoptysis, sputum. CARDIOVASCULAR: Denies chest pain, palpitations, orthopnea, edema GASTROINTESTINAL: See HPI : Denies dysuria, frequency, incontinence, hematuria, urinary retention, flank pain. MUSCULOSKELETAL: Denies weakness, joint pain, or bony pain SKIN: No rash, no erythema, no pruritus NEUROLOGIC: Denies weakness, dizziness, headache, numbness, change in speech, confusion PSYCHIATRIC: No concerning psychosocial issues. 12 point review of systems is negative except for those stated above and HPI Patient History Medical History Elevated cholesterol FH: carotid endarterectomy Hepatic steatosis Hypertension Night sweats Swollen lymph nodes TIA (transient ischemic attack) Surgical History History of hysterectomy Social History household members: spouse Smoking Status: Never smoker alcohol intake: current Smoking Status: Never smoker alcohol intake frequency: a few times a week Substance Use Type: does not use Exam Initial Vital Signs Initial Vital Signs: Vital Signs Temperature 99.9 F H 09/28/21 16:14 Pulse Rate 94 H 09/28/21 16:14 Respiratory Rate 20 09/28/21 16:14 Blood Pressure 160/89 H 09/28/21 16:14 Pulse Oximetry 96 09/28/21 16:14 GENERAL: Alert 75-year-old female HEENT: Head atraumatic,EOMI, pupils reactive, face symmetric, [moist] mucous membranes CARDIOVASCULAR: Regular rate and rhythm without murmurs, rubs or gallops. Mild lower left rib pain not reproducible with palpation RESPIRATORY: Breath sounds equal bilaterally, no wheezes rales or rhonchi. ABDOMEN: Soft, nontender. Normoactive bowel sounds all 4 quadrants. No guarding or rebound. Left upper quadrant epigastric like pain no guarding no rebound EXTREMITIES: Normal range of motion, no clubbing or edema. Neurovascularly intact NEUROLOGICAL: Alert and oriented x4.Normal gait and speech. SKIN: Warm, dry, no laceration, no petechiae, no rashes or lesions. Course Orders Ordered: ED Orders 09/28/21 18:25 CT abdomen pelvis w con Stat CT angio chest PE protocol Stat Vital Signs Vital signs: Vital Signs - 8 hr 09/28/21 19:59 Pulse Rate 79 Respiratory Rate 20 Blood Pressure 169/91 H Pulse Oximetry 97 MDM - Chest Pain Lab Data Result diagrams: 09/28/21 16:30 09/28/21 16:30 Labs: Lab Results 09/28/21 09/28/21 09/28/21 Range/Units 16:30 16:30 16:30 WBC 7.9 (4.5-11.0) X10^3/uL RBC 3.93 L (4.0-5.2) X10^6/uL Hgb 11.2 L (12.0-16.0) g/dL Hct 33.3 L (36-46) % MCV 84.9 (80-100) fL MCH 28.5 (26-34) PG MCHC 33.6 (30-36) % RDW 15.9 H (11.6-14.8) % Plt Count 243 (150-400) X10^3/uL Neut % (Auto) 63.1 (50-75) % Lymph % (Auto) 23.2 L (25-40) % Gaines % (Auto) 11.6 (3-14) % Eos % (Auto) 1.6 L (2-4) % Baso % (Auto) 0.5 (0-2) % Neut # (Auto) 5000 (1179-3723) /uL Lymph # (Auto) 1800 (7183-6140) /uL Gaines # (Auto) 900 (0-900) /uL Eos # (Auto) 100 (0-450) /uL Baso # (Auto) 0 (0-100) /uL D-Dimer 380 H (<230) ng/mL Sodium 139 (137-145) mmol/L Potassium 4.2 (3.4-5.1) mmol/L Chloride 99 (98-107) mmol/L Carbon Dioxide 32 (22-32) mmol/L BUN 21 H (7-17) mg/dL Creatinine 0.86 (0.52-1.04) mg/dL Estimated GFR > 60 (>60) mL/min BUN/Creatinine Ratio 24.4 H (6-22) Glucose 152 H (80-110) mg/dL Calcium 10.2 (8.4-10.2) mg/dL Magnesium 2.0 (1.6-2.3) mg/dL Total Bilirubin 0.6 (0.2-1.3) mg/dL AST 34 (14-36) IU/L ALT 27 (<35) IU/L Alkaline Phosphatase 150 H (38-126) U/L Total Creatine Kinase 27 L (30-135) U/L CK-MB (CK-2) TNP CK-MB (CK-2) Rel Index TNP Troponin I < 0.012 (0.01-0.034) ng/mL NT-Pro-B Natriuret Pep (<125) pg/mL Total Protein 7.9 (6.3-8.2) g/dL Albumin 4.4 (3.5-5.0) g/dL Globulin 3.5 (1.7-4.1) g/dL Albumin/Globulin Ratio 1.3 (1.0-2.8) Lipase 29 (23-300) U/L // Range/Units 16:30 WBC (4.5-11.0) X10^3/uL RBC (4.0-5.2) X10^6/uL Hgb (12.0-16.0) g/dL Hct (36-46) % MCV (80-100) fL MCH (26-34) PG MCHC (30-36) % RDW (11.6-14.8) % Plt Count (150-400) X10^3/uL Neut % (Auto) (50-75) % Lymph % (Auto) (25-40) % Gaines % (Auto) (3-14) % Eos % (Auto) (2-4) % Baso % (Auto) (0-2) % Neut # (Auto) (1232-8336) /uL Lymph # (Auto) (4086-0433) /uL Gaines # (Auto) (0-900) /uL Eos # (Auto) (0-450) /uL Baso # (Auto) (0-100) /uL D-Dimer (<230) ng/mL Sodium (137-145) mmol/L Potassium (3.4-5.1) mmol/L Chloride (98-107) mmol/L Carbon Dioxide (22-32) mmol/L BUN (7-17) mg/dL Creatinine (0.52-1.04) mg/dL Estimated GFR (>60) mL/min BUN/Creatinine Ratio (6-22) Glucose (80-110) mg/dL Calcium (8.4-10.2) mg/dL Magnesium (1.6-2.3) mg/dL Total Bilirubin (0.2-1.3) mg/dL AST (14-36) IU/L ALT (<35) IU/L Alkaline Phosphatase (38-126) U/L Total Creatine Kinase (30-135) U/L CK-MB (CK-2) CK-MB (CK-2) Rel Index Troponin I (0.01-0.034) ng/mL NT-Pro-B Natriuret Pep 553 H (<125) pg/mL Total Protein (6.3-8.2) g/dL Albumin (3.5-5.0) g/dL Globulin (1.7-4.1) g/dL Albumin/Globulin Ratio (1.0-2.8) Lipase (23-300) U/L Imaging Data CT scan - chest: Radiologist's Impression: Sylvia Carmen MR#: [id number] : 1945 Acct:[id number] Age/Sex: 75 / F Date of Service: 09/28/21 Loc: ED Accession Number: [id number] ?? Procedure: CT angio chest PE protocol Ordering Provider: Verónica Clarke D.O. PROCEDURE:? CT ANGIO CHEST PE PROTOCOL ? INDICATIONS:? left sided pain, known cancer ? TECHNIQUE:? After the administration of intravenous contrast, 2 mm thick sections acquired from the pulmonary apices to the posterior costophrenic angles.? 3-dimensional maximum intensity projection (MIP) coronal and sagittal reformats were then acquired through the thorax.? For radiation dose reduction, the following was used:? automated exposure control, adjustment of mA and/or kV according to patient size.? ? COMPARISON:? [facility], CT, CT CHEST W CON, 04/08/2021, 11:44. ? FINDINGS:? Image quality:? Excellent.? ? Pulmonary arteries:? Pulmonary arteries are normal in size, and demonstrate no intraluminal filling defects to suggest central pulmonary embolism.? ? Lungs and pleura:? Left basilar atelectasis and mild to moderate left pleural effusion have developed..? No pleural effusions or pneumothorax.? Central and peripheral airways are patent.? ? Mediastinum:? Heart size is normal, without pericardial effusion.? This is not significantly changed.? Also noted is an unchanged high right paratracheal lymph node, measuring 2.2 x 1.5 cm.? Thoracic aorta is normal in caliber and enhancement.? Esophagus is normal in caliber, without hiatal hernia.? ? Bones and chest wall:? No suspicious bony lesions.? Ribs and thoracic spine appear intact throughout.? Thyroid gland is unremarkable as imaged.? Somewhat enlarged supraclavicular lymph nodes.? Right chest Port-A-Cath. ? Abdomen:? Visualized upper abdominal solid organs appear normal in the early arterial phase of enhancement.? ? IMPRESSION:? ? 1. No evidence acute pulmonary emboli. ? 2. Mediastinal and supraclavicular adenopathy. ? 3. Development of mild to moderate left pleural effusion and left basilar atelectasis.? ? ? Dictated by: Michele Tolentino M.D. on 09/28/2021 at 19:27 ? ? Approved by: Michele Tolentino M.D. on 09/28/2021 at 19:32 ? CT scan - abdomen/pelvis: Radiologist's Impression: Sylvia Carmen MR#: [id number] : 1945 Acct:[id number] Age/Sex: 75 / F Date of Service: 09/28/21 Loc: ED Accession Number: [id number] ?? Procedure: CT abdomen pelvis w con Ordering Provider: Verónica Clarke D.O. PROCEDURE:? CT ABDOMEN PELVIS W CON ? INDICATIONS:? left sided upper quad pain ? TECHNIQUE:? After the administration of intravenous contrast, axial sections acquired from the lung bases to the pubic symphysis.? Coronal and sagittal reformats were performed.? For radiation dose reduction, the following was used:? automated exposure control, adjustment of mA and/or kV according to patient size.? ? COMPARISON:? [facility], CT, CT ABDOMEN PELVIS W CON, 06/27/2021, 10:31. ? FINDINGS:? Image quality:? Excellent.? ? Lung bases:? Development of small left pleural effusion and left basilar atelectasis. Heart:? No significant findings. ? ABDOMEN: Liver:? Unremarkable.? ? Gallbladder:? Mild chronic wall thickening.? No significant change.? ? Biliary ducts:? Unremarkable.? ? Pancreas:? Unremarkable.? ? Spleen:? Unremarkable.? ? Adrenal Glands:? Unremarkable.? ? Kidneys and Ureters:? Unremarkable.? ? ? Stomach and Bowel:? Stomach, small bowel loops, and colon are unremarkable.? Peritoneum:? No abnormal intraperitoneal fluid.? No free air.? ? Ventral Wall: ? No hernias.? Abdominal Nodes:? Extensive adenopathy as before, involving the left gastric chain, peripancreatic region, portacaval nodes, and periaortic and pericaval nodes.? This was also previously present.? Mild interval decrease in the size of some of the lymph nodes, possibly indicating response to therapy.? For example, on previous image 32/2 and current image 36/2, the aortocaval lymph node in the left periaortic lymph node have slightly decreased in size.? On the previous study the aortocaval lymph node measured 1.8 x 1.3 cm.? It now measures 1.6 x 1.3 cm. The left periaortic lymph node previously measured 2.3 x 2.3 cm and now measures 2.1 x 1.9 cm. Vessels:? Aorta and inferior vena cava are normal in size.? ? PELVIS: Pelvic Organs:? Uterus is surgically absent..? ? Bladder:? Mild chronic diffuse bladder wall thickening, as before..? ? Pelvic Nodes: No enlarged lymph nodes.? Miscellaneous: No hernias are seen. ? ? ? Bones:? Lumbar degenerative change.? No lytic or blastic bony lesions.? No compression fractures. ? ? ? IMPRESSION:? ? 1. Development of left basilar atelectasis and small left pleural effusion. ? 2. Extensive abdominal adenopathy, slightly improved, suggesting potential response to therapy. ? 3. Mild chronic gallbladder wall thickening. ? 4. Mild chronic bladder wall thickening.? ? ? Dictated by: Michele Tolentino M.D. on 09/28/2021 at 19:18 ? ? Approved by: Michele Tolentino M.D. on 09/28/2021 at 19:25 ? ECG Data Interpretation: Normal sinus rhythm rate 91 ND interval 136 QRS 72 QTC [address] changes no T-wave inversions similar to previous EKG from 2020 [facility] Narrative Medical decision making narrative: Patient is having left-sided chest pain which is left upper quadrant and lower lung. Difficult to tell what it is. She certainly has risk factor for pulmonary embolism fortunately CT angio is negative for PE. CT abdomen actually shows improvement in her lymphadenopathy. She is found to have a small left pleural effusion which may be causing her discomfort. We will try her on a couple days of Lasix to see if she has any sort of improvement. She has oxycodone at home for pain which I recommend she continue taking to help her sleep. Discharge Plan Departure Patient Disposition: Home Clinical Impression: Pleural effusion Instructions: Pleural Effusion Activity Restrictions/Additional Instructions: *You have been diagnosed with left small pleural effusion *What to do: At this time there is no pulmonary embolism. He do have a very small left pleural effusion which might be causing some of her discomfort. *Continue to take medications as directed Lasix 20 mg once a day for 4 days Oxycodone take as directed I would be sure to take him tonight before bed to help you sleep *Follow up with your primary care provider in 2-3 days or call [phone] *Return to ER if you should have increasing pain shortness of breath fever greater than 100.4 for more than 1 hour were greater than 101F or any new, worsening or concerning symptoms Prescriptions: New furosemide [Lasix] 20 mg tablet 20 mg PO QAM Qty: 4 0RF No Action amlodipine 10 MG tablet 1 tab PO QPM Qty: 0 0RF meloxicam 7.5 mg 7.5 mg PO PRN PRN (Reason: Pain (Scale Score 1-3)) 0RF Label Comments: hasn't used for a year ondansetron HCl 4 mg Tablet 4 mg PO Q6H PRN (Reason: Nausea) Qty: 30 0RF Rx Instructions: Take one pill by mouth every 6 hours as needed for nausea oxycodone-acetaminophen 5-325 mg Tablet 1 tab PO Q8H PRN (Reason: Pain, Moderate) Qty: 120 0RF lidocaine-prilocaine 2.5-2.5 % Cream 1 applic topical PRN PRN (Reason: Pain At Injection Site) Qty: 30 0RF Rx Instructions: Apply to the skin over the port at least 2 hours before planned use of the port. Cover the cream with a small amount of plastic wrap and leave in place until the port is accessed. acetaminophen 500 mg Tablet 500 mg PO Q6H PRN (Reason: Pain) 0RF aspirin 81 mg Tablet,Delayed Release (Dr/Ec) 81 mg PO DAILY 0RF metoprolol succinate 50 mg tablet extended release 24 hr 50 mg PO BID 0RF rosuvastatin 10 mg tablet 10 mg PO BEDTIME 0RF losartan 25 mg tablet 25 mg PO QAM 0RF Referrals: Jack Baker MD [Physician] - Kathy Cruz MD [Primary Care Provider] -
--- NOTE | 2021-09-28 18:25 | DI.CT.S_ITS ---
PROCEDURE: CT ABDOMEN PELVIS W CON INDICATIONS: left sided upper quad pain TECHNIQUE: After the administration of intravenous contrast, axial sections acquired from the lung bases to the pubic symphysis. Coronal and sagittal reformats were performed. For radiation dose reduction, the following was used: automated exposure control, adjustment of mA and/or kV according to patient size. COMPARISON: [facility], CT, CT ABDOMEN PELVIS W CON, 06/27/2021, 10:31. FINDINGS: Image quality: Excellent. Lung bases: Development of small left pleural effusion and left basilar atelectasis. Heart: No significant findings. ABDOMEN: Liver: Unremarkable. Gallbladder: Mild chronic wall thickening. No significant change. Biliary ducts: Unremarkable. Pancreas: Unremarkable. Spleen: Unremarkable. Adrenal Glands: Unremarkable. Kidneys and Ureters: Unremarkable. Stomach and Bowel: Stomach, small bowel loops, and colon are unremarkable. Peritoneum: No abnormal intraperitoneal fluid. No free air. Ventral Wall: No hernias. Abdominal Nodes: Extensive adenopathy as before, involving the left gastric chain, peripancreatic region, portacaval nodes, and periaortic and pericaval nodes. This was also previously present. Mild interval decrease in the size of some of the lymph nodes, possibly indicating response to therapy. For example, on previous image 32/2 and current image 36/2, the aortocaval lymph node in the left periaortic lymph node have slightly decreased in size. On the previous study the aortocaval lymph node measured 1.8 x 1.3 cm. It now measures 1.6 x 1.3 cm. The left periaortic lymph node previously measured 2.3 x 2.3 cm and now measures 2.1 x 1.9 cm. Vessels: Aorta and inferior vena cava are normal in size. PELVIS: Pelvic Organs: Uterus is surgically absent.. Bladder: Mild chronic diffuse bladder wall thickening, as before.. Pelvic Nodes: No enlarged lymph nodes. Miscellaneous: No hernias are seen. Bones: Lumbar degenerative change. No lytic or blastic bony lesions. No compression fractures. IMPRESSION: 1. Development of left basilar atelectasis and small left pleural effusion. 2. Extensive abdominal adenopathy, slightly improved, suggesting potential response to therapy. 3. Mild chronic gallbladder wall thickening. 4. Mild chronic bladder wall thickening. Dictated by: Michele Tolentino M.D. on 09/28/2021 at 19:18 Approved by: Michele Tolentino M.D. on 09/28/2021 at 19:25
--- NOTE | 2021-09-28 18:25 | DI.CT.S_ITS ---
PROCEDURE: CT ANGIO CHEST PE PROTOCOL INDICATIONS: left sided pain, known cancer TECHNIQUE: After the administration of intravenous contrast, 2 mm thick sections acquired from the pulmonary apices to the posterior costophrenic angles. 3-dimensional maximum intensity projection (MIP) coronal and sagittal reformats were then acquired through the thorax. For radiation dose reduction, the following was used: automated exposure control, adjustment of mA and/or kV according to patient size. COMPARISON: [facility], CT, CT CHEST W CON, 04/08/2021, 11:44. FINDINGS: Image quality: Excellent. Pulmonary arteries: Pulmonary arteries are normal in size, and demonstrate no intraluminal filling defects to suggest central pulmonary embolism. Lungs and pleura: Left basilar atelectasis and mild to moderate left pleural effusion have developed.. No pleural effusions or pneumothorax. Central and peripheral airways are patent. Mediastinum: Heart size is normal, without pericardial effusion. This is not significantly changed. Also noted is an unchanged high right paratracheal lymph node, measuring 2.2 x 1.5 cm. Thoracic aorta is normal in caliber and enhancement. Esophagus is normal in caliber, without hiatal hernia. Bones and chest wall: No suspicious bony lesions. Ribs and thoracic spine appear intact throughout. Thyroid gland is unremarkable as imaged. Somewhat enlarged supraclavicular lymph nodes. Right chest Port-A-Cath. Abdomen: Visualized upper abdominal solid organs appear normal in the early arterial phase of enhancement. IMPRESSION: 1. No evidence acute pulmonary emboli. 2. Mediastinal and supraclavicular adenopathy. 3. Development of mild to moderate left pleural effusion and left basilar atelectasis. Dictated by: Michele Tolentino M.D. on 09/28/2021 at 19:27 Approved by: Michele Tolentino M.D. on 09/28/2021 at 19:32
[2021-09-28 18:52] LABS: D Dimer 380 ng/mL (<230)
[2021-09-28 18:55] LABS: NT-proBNP (BNP-Adult 18+) 553 pg/mL (<125)
[2021-09-28 19:59] VITALS: BP 169/91; PULSE 79; RESP 20; O2SAT 97
== END 2021-09-28 19:59 | disposition home or self-care (01) ==
PROVIDERS: Emergency Medicine; Emergency Provider Emergency Medicine; PCP Family Medicine
DX: R07.9 Chest pain, unspecified (principal); J90 Pleural effusion, not elsewhere classified
CPT/HCPCS: 71045; 71275; 74177; 80053; 82550; 83690; 83735; 83880; 84484; 85025; 85379; 93005; 99284; Q9967

== ENCOUNTER 2021-10-12 11:31 | Emergency (ER) | payer OTHER, SELFPAY ==
--- NOTE | 2021-10-12 | DI.RAD.S_ITS ---
PROCEDURE: XR CHEST 1V INDICATIONS: POST THORACENTESIS TECHNIQUE: One view of the chest was acquired. COMPARISON: [facility], , XR CHEST 2V, 10/12/2021, 11:43. FINDINGS: Surgical changes and devices: Right Port-A-Cath is unchanged. Lungs and pleura: There is a marked decrease in the left pleural effusion status post thoracentesis. No pneumothorax. Mediastinum: Mediastinal contours appear normal. Heart size is normal. Bones and chest wall: No suspicious bony lesions. Overlying soft tissues appear unremarkable. IMPRESSION: No pneumothorax status post thoracentesis with marked reduction in the size of the left pleural effusion. Dictated by: Sheila Reno M.D. on 10/12/2021 at 14:40 Approved by: Sheila Reno M.D. on 10/12/2021 at 14:40
[2021-10-12 11:38] VITALS: BP 137/63; PULSE 82; RESP 24; O2SAT 94; BMI 30.7
--- NOTE | 2021-10-12 11:43 | DI.RAD.S_ITS ---
PROCEDURE: XR CHEST 2V INDICATIONS: shortness of breath TECHNIQUE: 2 views of the chest were acquired. COMPARISON: [facility], CR, XR CHEST 1V, 09/28/2021, 16:41. [facility], CR, XR CHEST 2V, 02/09/2021, 15:56. FINDINGS: Surgical changes and devices: Right chest wall Port-A-Cath. Lungs and pleura: The pleural fluid collection increased in size compared to September 28, 2021. Left basilar lung consolidation which could represent compressive atelectasis, aspiration or pneumonia. Mediastinum: Mediastinal contours are normal. Heart size is normal. Bones and chest wall: No suspicious bony abnormalities. Soft tissues appear unremarkable. IMPRESSION: Moderate-sized left-sided pleural effusion. Left basilar consolidation compatible with compressive atelectasis, aspiration or pneumonia. Dictated by: Celeste Jarquin MD, PhD on 10/12/2021 at 12:20 Approved by: Celeste Jarquin MD, PhD on 10/12/2021 at 12:21
[2021-10-12] MEDS: OXYCODONE/ACETAMINOPHEN 5/325 TABLET 1 TAB PO (12:30)
[2021-10-12 12:47] LABS: Add Manual Diff / Slide Review NO; Basophils Absolute Auto 0 /uL (0-100); Basophils Percent Auto 0.5 % (0-2); Eosinophils Absolute Auto 100 /uL (0-450); Hematocrit 29.7 % (36-46); Hemoglobin 9.9 g/dL (12.0-16.0); Lymphocytes Absolute Auto 900 /uL (1100-4500); Lymphocytes Percent Auto 10.3 % (25-40); Mean Corpuscular HGB Conc 33.3 % (30-36); Mean Corpuscular Hemoglobin 27.8 PG (26-34); Mean Corpuscular Volume 83.5 fL (80-100); Monocytes Absolute Auto 1000 /uL (0-900); Monocytes Percent Auto 10.9 % (3-14); Neutrophils Absolute Auto 6800 /uL (1500-7000); Neutrophils Percent Auto 77.3 % (50-75); Platelet Count 398 X10^3/uL (150-400); Red Blood Cell Count 3.55 X10^6/uL (4.0-5.2); Red Cell Distribution Width 15.4 % (11.6-14.8); White Blood Cell Count 8.8 X10^3/uL (4.5-11.0)
[2021-10-12 12:54] LABS: Alanine Aminotransferase 38 IU/L (<35); Albumin 3.7 g/dL (3.5-5.0); Albumin Globulin Ratio 1.1 (1.0-2.8); Alkaline Phosphatase 567 U/L (38-126); Aspartate Aminotransferase 50 IU/L (14-36); BUN Creatinine Ratio 14.3 (6-22); Bilirubin Total 0.7 mg/dL (0.2-1.3); Blood Urea Nitrogen 14 mg/dL (7-17); Calcium 10.6 mg/dL (8.4-10.2); Carbon Dioxide 31 mmol/L (22-32); Chloride 102 mmol/L (98-107); Creatine Kinase 24 U/L (30-135); Estimated Glomerular Filt Rate > 60 mL/min (>60); Globulin 3.5 g/dL (1.7-4.1); Glucose 142 mg/dL (80-110); HEMOLYSIS < 15 (0-50); Potassium 3.8 mmol/L (3.4-5.1); Sodium 139 mmol/L (137-145); Total Protein 7.2 g/dL (6.3-8.2)
--- NOTE | 2021-10-12 13:02 | DI.US.S_ITS ---
PROCEDURE: US THORACENTESIS INDICATIONS: PLEURAL EFFUSION TECHNIQUE: The indications, alternatives, benefits, risks, and complications of the procedure were explained to the patient. Written informed consent was obtained and placed in the chart. The chest was examined sonographically, and an appropriate site was chosen for thoracentesis. The skin was prepared and draped in the usual sterile fashion, and 1% lidocaine was infiltrated from the skin down through the pleural surface. A 19-gauge catheter-covered needle was then introduced into the pleural space, the catheter was advanced and the needle was withdrawn, and thereafter pleural fluid was aspirated. The catheter was then removed and a dressing was applied. COMPARISON: [facility], CR, XR CHEST 1V, 10/12/2021, 14:21. FINDINGS: Access site: Left hemithorax. Needle: One-Step centesis catheter with introducer needle. Fluid volume and description: Somewhat darkened somewhat thick, reddish fluid, approximately 650 mL. Fluid sent for diagnostic testing: S Medications: 1% lidocaine for local anaesthesia. Complications: None; post-procedural chest radiograph is pending to assess for pneumothorax. IMPRESSION: Successful ultrasound-guided thoracentesis. Dictated by: Michele Tolentino M.D. on 10/12/2021 at 16:44 Approved by: Michele Tolentino M.D. on 10/12/2021 at 16:45
[2021-10-12 13:06] LABS: NT-proBNP (BNP-Adult 18+) 1010 pg/mL (<125); Troponin I < 0.012 ng/mL (0.01-0.034)
--- NOTE | 2021-10-12 13:09 | ED.SOB ---
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 She previously was seen on 09/28/2021 where she was diagnosed with a pleural effusion. She had a CT to rule out pulmonary embolism at that time. She was started on 4 days of Lasix she noticed no changes. For last 2 weeks she has had increasing symptoms she has increasing pain. Requiring oxygen now. She continues to have some intermittent pain. Related Data Home Medications Medication Instructions Recorded Confirmed amlodipine 10 mg tablet 1 tab PO QPM #0 09/21/17 10/04/21 losartan 25 mg tablet 25 mg PO QAM 12/10/20 10/04/21 metoprolol succinate 50 mg 50 mg PO BID 12/10/20 10/04/21 tablet,extended release 24 hr rosuvastatin 10 mg tablet 10 mg PO BEDTIME 12/10/20 10/04/21 meloxicam 7.5 mg PO PRN PRN 06/07/21 10/04/21 acetaminophen 500 mg tablet 500 mg PO Q6H PRN 08/01/21 10/04/21 aspirin 81 mg tablet,delayed 81 mg PO DAILY 08/01/21 10/04/21 release Previous Rx's Medication Instructions Recorded ondansetron HCl 4 mg tablet 4 mg PO Q6H PRN #30 tab 07/07/21 oxycodone-acetaminophen 5 mg-325 1 tab PO Q8H PRN #120 tab 07/07/21 mg tablet lidocaine-prilocaine 2.5 %-2.5 % 1 applic TOPICAL PRN PRN #30 g 08/23/21 topical cream Allergies Allergy/AdvReac Type Severity Reaction Status Date / Time Penicillins Allergy Mild Rash Verified 09/28/21 16:21 Review of Systems Review of Systems Narrative: GENERAL: Denies chills, fatigue, malaise, fever, sweats, travel HEENT: Denies sinus pain, ear pain, sore throat, difficulty swallowing, neck pain RESPIRATORY: See HPI CARDIOVASCULAR: Denies chest pain, palpitations, orthopnea, edema GASTROINTESTINAL: Denies nausea, vomiting, abdominal pain, diarrhea, constipation, melena. : Denies dysuria, frequency, incontinence, hematuria, urinary retention, flank pain. MUSCULOSKELETAL: Denies weakness, joint pain, or bony pain SKIN: No rash, no erythema, no pruritus NEUROLOGIC: Denies weakness, dizziness, headache, numbness, change in speech, confusion PSYCHIATRIC: No concerning psychosocial issues. 12 point review of systems is negative except for those stated above and HPI Patient History Medical History Elevated cholesterol FH: carotid endarterectomy Hepatic steatosis Hypertension Night sweats Swollen lymph nodes TIA (transient ischemic attack) Surgical History History of hysterectomy Social History household members: spouse Smoking Status: Never smoker alcohol intake: current Smoking Status: Never smoker alcohol intake frequency: a few times a week Substance Use Type: does not use Exam Initial Vital Signs Initial Vital Signs: Vital Signs Pulse Rate 82 10/12/21 11:38 Respiratory Rate 24 10/12/21 11:38 Blood Pressure 137/63 10/12/21 11:38 Pulse Oximetry 94 10/12/21 11:38 GENERAL: Alert 75-year-old female in no acute distress. HEENT: Head atraumatic,EOMI, pupils reactive, face symmetric, moist mucous membranes CARDIOVASCULAR: Regular rate and rhythm without murmurs, rubs or gallops. RESPIRATORY: Decreased breath sounds on left side no significant respiratory distress ABDOMEN: Soft, nontender. Normoactive bowel sounds all 4 quadrants. No guarding or rebound. EXTREMITIES: Normal range of motion, no clubbing or edema. Neurovascularly intact NEUROLOGICAL: Alert and oriented x4. SKIN: Warm, dry, no laceration, no petechiae, no rashes or lesions. Course Orders Ordered: Discontinued Medications Oxycodone/Acetaminophen (Oxycodone/Acetaminophen 5/325 Tablet) 1 tab PO NOW ONE Stop: 10/12/21 12:28 Last Admin: 10/12/21 12:30 Dose: 1 tab Documented by: CAN Vital Signs Vital signs: Vital Signs - 8 hr 10/12/21 11:38 10/12/21 14:33 10/12/21 14:34 Pulse Rate 82 83 Respiratory Rate 24 26 H Blood Pressure 137/63 123/63 Pulse Oximetry 94 94 MDM - SOB/Dyspnea Lab Data Result diagrams: 10/12/21 12:20 10/12/21 12:20 Labs: Lab Results 10/12/21 10/12/21 10/12/21 Range/Units 12:20 12:20 12:20 WBC 8.8 (4.5-11.0) X10^3/uL RBC 3.55 L (4.0-5.2) X10^6/uL Hgb 9.9 L (12.0-16.0) g/dL Hct 29.7 L (36-46) % MCV 83.5 (80-100) fL MCH 27.8 (26-34) PG MCHC 33.3 (30-36) % RDW 15.4 H (11.6-14.8) % Plt Count 398 (150-400) X10^3/uL Neut % (Auto) 77.3 H (50-75) % Lymph % (Auto) 10.3 L (25-40) % Garfield % (Auto) 10.9 (3-14) % Eos % (Auto) 1.0 L (2-4) % Baso % (Auto) 0.5 (0-2) % Neut # (Auto) 6800 (1704-1900) /uL Lymph # (Auto) 900 L (7135-3512) /uL [place]field # (Auto) 1000 H (0-900) /uL Eos # (Auto) 100 (0-450) /uL Baso # (Auto) 0 (0-100) /uL PT (10.1-12.7) SECONDS INR (0.9-1.3) APTT (26.4-36.2) SECONDS Sodium 139 (137-145) mmol/L Potassium 3.8 (3.4-5.1) mmol/L Chloride 102 (98-107) mmol/L Carbon Dioxide 31 (22-32) mmol/L BUN 14 (7-17) mg/dL Creatinine 0.98 (0.52-1.04) mg/dL Estimated GFR > 60 (>60) mL/min BUN/Creatinine Ratio 14.3 (6-22) Glucose 142 H (80-110) mg/dL Lactate 2.0 (0.7-2.1) mmol/L Calcium 10.6 H (8.4-10.2) mg/dL Total Bilirubin 0.7 (0.2-1.3) mg/dL AST 50 H (14-36) IU/L ALT 38 H (<35) IU/L Alkaline Phosphatase 567 H (38-126) U/L Lactate Dehydrogenase (313-618) U/L Total Creatine Kinase (30-135) U/L CK-MB (CK-2) CK-MB (CK-2) Rel Index Troponin I (0.01-0.034) ng/mL NT-Pro-B Natriuret Pep (<125) pg/mL Total Protein 7.2 (6.3-8.2) g/dL Albumin 3.7 (3.5-5.0) g/dL Globulin 3.5 (1.7-4.1) g/dL Albumin/Globulin Ratio 1.1 (1.0-2.8) Fluid Color Fluid Appearance Fluid RBC /uL Fld Tot Nucleated Cell /uL Fluid Polynuclear WBCs % Fluid Mononuclear WBCs % Fluid Eosinophils % Fluid Other Cells % Body Fluid Clot Fluid Glucose mg/dL Fluid LDH U/L SARS-CoV-2 (PCR) (Negative) 10/12/21 10/12/21 10/12/21 Range/Units 12:20 12:20 12:20 WBC (4.5-11.0) X10^3/uL RBC (4.0-5.2) X10^6/uL Hgb (12.0-16.0) g/dL Hct (36-46) % MCV (80-100) fL MCH (26-34) PG MCHC (30-36) % RDW (11.6-14.8) % Plt Count (150-400) X10^3/uL Neut % (Auto) (50-75) % Lymph % (Auto) (25-40) % Garfield % (Auto) (3-14) % Eos % (Auto) (2-4) % Baso % (Auto) (0-2) % Neut # (Auto) (1904-2418) /uL Lymph # (Auto) (5707-8559) /uL Garfield # (Auto) (0-900) /uL Eos # (Auto) (0-450) /uL Baso # (Auto) (0-100) /uL PT 16.9 H (10.1-12.7) SECONDS INR 1.5 H (0.9-1.3) APTT 31 (26.4-36.2) SECONDS Sodium (137-145) mmol/L Potassium (3.4-5.1) mmol/L Chloride (98-107) mmol/L Carbon Dioxide (22-32) mmol/L BUN (7-17) mg/dL Creatinine (0.52-1.04) mg/dL Estimated GFR (>60) mL/min BUN/Creatinine Ratio (6-22) Glucose (80-110) mg/dL Lactate (0.7-2.1) mmol/L Calcium (8.4-10.2) mg/dL Total Bilirubin (0.2-1.3) mg/dL AST (14-36) IU/L ALT (<35) IU/L Alkaline Phosphatase (38-126) U/L Lactate Dehydrogenase 2109 H (313-618) U/L Total Creatine Kinase 24 L (30-135) U/L CK-MB (CK-2) TNP CK-MB (CK-2) Rel Index TNP Troponin I < 0.012 (0.01-0.034) ng/mL NT-Pro-B Natriuret Pep 1010 H (<125) pg/mL Total Protein (6.3-8.2) g/dL Albumin (3.5-5.0) g/dL Globulin (1.7-4.1) g/dL Albumin/Globulin Ratio (1.0-2.8) Fluid Color Fluid Appearance Fluid RBC /uL Fld Tot Nucleated Cell /uL Fluid Polynuclear WBCs % Fluid Mononuclear WBCs % Fluid Eosinophils % Fluid Other Cells % Body Fluid Clot Fluid Glucose mg/dL Fluid LDH U/L SARS-CoV-2 (PCR) (Negative) 10/12/21 10/12/21 Range/Units 12:23 13:15 WBC (4.5-11.0) X10^3/uL RBC (4.0-5.2) X10^6/uL Hgb (12.0-16.0) g/dL Hct (36-46) % MCV (80-100) fL MCH (26-34) PG MCHC (30-36) % RDW (11.6-14.8) % Plt Count (150-400) X10^3/uL Neut % (Auto) (50-75) % Lymph % (Auto) (25-40) % Garfield % (Auto) (3-14) % Eos % (Auto) (2-4) % Baso % (Auto) (0-2) % Neut # (Auto) (5432-1241) /uL Lymph # (Auto) (9182-0064) /uL Garfield # (Auto) (0-900) /uL Eos # (Auto) (0-450) /uL Baso # (Auto) (0-100) /uL PT (10.1-12.7) SECONDS INR (0.9-1.3) APTT (26.4-36.2) SECONDS Sodium (137-145) mmol/L Potassium (3.4-5.1) mmol/L Chloride (98-107) mmol/L Carbon Dioxide (22-32) mmol/L BUN (7-17) mg/dL Creatinine (0.52-1.04) mg/dL Estimated GFR (>60) mL/min BUN/Creatinine Ratio (6-22) Glucose (80-110) mg/dL Lactate (0.7-2.1) mmol/L Calcium (8.4-10.2) mg/dL Total Bilirubin (0.2-1.3) mg/dL AST (14-36) IU/L ALT (<35) IU/L Alkaline Phosphatase (38-126) U/L Lactate Dehydrogenase (313-618) U/L Total Creatine Kinase (30-135) U/L CK-MB (CK-2) CK-MB (CK-2) Rel Index Troponin I (0.01-0.034) ng/mL NT-Pro-B Natriuret Pep (<125) pg/mL Total Protein (6.3-8.2) g/dL Albumin (3.5-5.0) g/dL Globulin (1.7-4.1) g/dL Albumin/Globulin Ratio (1.0-2.8) Fluid Color [place] Fluid Appearance Slightly cloudy Fluid RBC 84461 /uL Fld Tot Nucleated Cell 633 /uL Fluid Polynuclear WBCs 7 % Fluid Mononuclear WBCs 72 % Fluid Eosinophils 2 % Fluid Other Cells 19 % Body Fluid Clot No clots present Fluid Glucose 117 mg/dL Fluid LDH 4465 U/L SARS-CoV-2 (PCR) Negative (Negative) Imaging Data Chest x-ray: Radiologist's Impression: XRay Report Signed Patient: Sylvia Carmen MR#: [id number] : 1945 Acct:[id number] Age/Sex: 75 / F Date of Service: 10/12/21 Loc: ED Accession Number: [id number] ?? Procedure: XR chest 2V Ordering Provider: Verónica Clarke D.O. PROCEDURE:? XR CHEST 2V ? INDICATIONS:? shortness of breath ? TECHNIQUE:? 2 views of the chest were acquired.? ? COMPARISON:? [facility], CR, XR CHEST 1V, 09/28/2021, 16:41.? [facility], CR, XR CHEST 2V, 02/09/2021, 15:56. ? FINDINGS:? ? Surgical changes and devices:? Right chest wall Port-A-Cath. ? Lungs and pleura:? The pleural fluid collection increased in size compared to September 28, 2021. Left basilar lung consolidation which could represent compressive atelectasis, aspiration or pneumonia. ? Mediastinum:? Mediastinal contours are normal.? Heart size is normal.? ? Bones and chest wall:? No suspicious bony abnormalities.? Soft tissues appear unremarkable.? ? IMPRESSION:? ? Moderate-sized left-sided pleural effusion. ? Left basilar consolidation compatible with compressive atelectasis, aspiration or pneumonia. ? ? Dictated by: Celeste Jarquin MD, PhD on 10/12/2021 at 12:20 ? ? Approved by: Celeste Jarquin MD, PhD on 10/12/2021 at 12:21 ? CX 2: Radiologist's Impression: [address] [place] [id number] XRay Report Signed Patient: Sylvia Carmen MR#: [id number] : 1945 Acct:[id number] Age/Sex: 75 / F Date of Service: 10/12/21 Loc: ED Accession Number: [id number] ?? Procedure: XR chest 1V Ordering Provider: Botnick,Verónica D.O. PROCEDURE:? XR CHEST 1V ? INDICATIONS:? POST THORACENTESIS ? TECHNIQUE:? One view of the chest was acquired.? ? COMPARISON:? [facility], CR, XR CHEST 2V, 10/12/2021, 11:43. ? FINDINGS:? ? Surgical changes and devices:? Right Port-A-Cath is unchanged. ? Lungs and pleura:? There is a marked decrease in the left pleural effusion status post thoracentesis.? No pneumothorax. ? Mediastinum:? Mediastinal contours appear normal.? Heart size is normal.? ? Bones and chest wall:? No suspicious bony lesions.? Overlying soft tissues appear unremarkable.? ? IMPRESSION:? No pneumothorax status post thoracentesis with marked reduction in the size of the left pleural effusion. ? ? Dictated by: Sheila Reno M.D. on 10/12/2021 at 14:40 ? ? thoracentesis: Radiologist's Impression: Ultrasound Report Signed Patient: Sylvia Carmen MR#: [id number] : 1945 Acct:[id number] Age/Sex: 75 / F Date of Service: 10/12/21 Loc: ED Accession Number: [id number] ?? Procedure: US thoracentesis Ordering Provider: Verónica Calrke D.O. PROCEDURE:? US THORACENTESIS ? INDICATIONS:? PLEURAL EFFUSION ? TECHNIQUE:? The indications, alternatives, benefits, risks, and complications of the procedure were explained to the patient.? Written informed consent was obtained and placed in the chart. ?The chest was examined sonographically, and an appropriate site was chosen for thoracentesis.? The skin was prepared and draped in the usual sterile fashion, and 1% lidocaine was infiltrated from the skin down through the pleural surface.? A 19-gauge catheter-covered needle was then introduced into the pleural space, the catheter was advanced and the needle was withdrawn, and thereafter pleural fluid was aspirated.? The catheter was then removed and a dressing was applied.? ? COMPARISON:? [facility], CR, XR CHEST 1V, 10/12/2021, 14:21. ? FINDINGS:? Access site:? Left hemithorax.? Needle:? One-Step centesis catheter with introducer needle.? Fluid volume and description:? Somewhat darkened somewhat thick, reddish fluid, approximately 650 mL. Fluid sent for diagnostic testing:? S Medications:? 1% lidocaine for local anaesthesia.? Complications:? None; post-procedural chest radiograph is pending to assess for pneumothorax.? ? IMPRESSION:? Successful ultrasound-guided thoracentesis.? ? ? Dictated by: Michele Tolentino M.D. on 10/12/2021 at 16:44 ? ? Approved by: Michele Tolentino M.D. on 10/12/2021 at 16:45 ? ECG Data Interpretation: Normal sinus rhythm rate 82 SC interval 132 QRS [address] changes no T-wave inversions similar to previous EKG MDM Narrative Medical decision making narrative: Patient has known cancer currently being treated. She has had a significant increase in left pleural effusion over the couple of weeks. She successfully had a thoracentesis done by Radiology 500 cc was drained. She is overall feeling better she is no longer needing oxygen. She has pain medicine at home. Discharge Plan Departure Patient Disposition: Home Clinical Impression: Pleural effusion Instructions: Pleural Effusion Activity Restrictions/Additional Instructions: *You have been diagnosed with pleural effusion *What to do: Please follow-up with your oncologist. Testing will take a couple of days to return. You may need to have this procedure done. Please discuss this with your oncologist *Continue to take medications as directed *Follow up with your primary care provider in 2-3 days or call [phone] *Return to ER if you should have increasing shortness of breath fever, chest pain or any new, worsening or concerning symptoms Prescriptions: No Action amlodipine 10 MG tablet 1 tab PO QPM Qty: 0 0RF meloxicam 7.5 mg 7.5 mg PO PRN PRN (Reason: Pain (Scale Score 1-3)) 0RF Label Comments: hasn't used for a year ondansetron HCl 4 mg Tablet 4 mg PO Q6H PRN (Reason: Nausea) Qty: 30 0RF Rx Instructions: Take one pill by mouth every 6 hours as needed for nausea oxycodone-acetaminophen 5-325 mg Tablet 1 tab PO Q8H PRN (Reason: Pain, Moderate) Qty: 120 0RF lidocaine-prilocaine 2.5-2.5 % Cream 1 applic topical PRN PRN (Reason: Pain At Injection Site) Qty: 30 0RF Rx Instructions: Apply to the skin over the port at least 2 hours before planned use of the port. Cover the cream with a small amount of plastic wrap and leave in place until the port is accessed. acetaminophen 500 mg Tablet 500 mg PO Q6H PRN (Reason: Pain) 0RF aspirin 81 mg Tablet,Delayed Release (Dr/Ec) 81 mg PO DAILY 0RF metoprolol succinate 50 mg tablet extended release 24 hr 50 mg PO BID 0RF rosuvastatin 10 mg tablet 10 mg PO BEDTIME 0RF losartan 25 mg tablet 25 mg PO QAM 0RF Referrals: Kathy Cruz MD [Primary Care Provider] -
[2021-10-12 13:14] LABS: INR 1.5 (0.9-1.3); Prothrombin Time 16.9 SECONDS (10.1-12.7)
--- NOTE | 2021-10-12 13:15 | PATH_ITS ---
Note [facility] Accession Number: [id number] TESTS RESULT FLAG UNITS REF RANGE LAB Source: PLEURAL FLUID DIAGNOSIS: 02 PLEURAL FLUID INCONCLUSIVE. THIS INTERPRETATION INCLUDES EVALUATION OF A CELL BLOCK. RARE ATYPICAL CELL GROUPS; INSUFFICIENT ATYPICAL CELL VOLUME FOR FURTHER CHARACTERIZATION. PLEASE RE-SUBMIT IF FLUID RE-ACCUMULATES. Pathologist ICD10: 02 J90 Signed out by: Jeni Jarquin MD, Pathologist NPI- [id number] Performed by: Ang Baugh, Used [employer] Yard Worker ([facility]) Gross description: 80 CC, RED, CLOUDY RECEIVED: FRESH IN ORANGE CAP CONTAINER. /GLENN 10/13/2021 1305 Local FLAG LEGEND: L-Low Normal,H-High Normal,LL-Alert Low,HH-Alert High <-Panic Low,>-Panic High,A-Abnormal,AA-Critical Abnormal Performed at: 01 =Z [facility] [address], [place] [address] Khari Metcalf MD, 02 LCLWA [facility] [place] [address] [place] [id number] Su Mina MD, Performed at: 01 [facility] [address], [place], [place] [id number] MD Khari Metcalf MD Phone: [phone]
[2021-10-12 13:17] LABS: PTT Partial Thromboplastin Tim 31 SECONDS (26.4-36.2)
[2021-10-12 13:18] LABS: COVID19 -Nasal RAPID Negative (Negative)
--- NOTE | 2021-10-12 13:59 | PC.NURSE ---
patient taken to interventional radiology for thoracentesis
[2021-10-12 14:33] VITALS: BP 123/63
[2021-10-12 14:34] VITALS: PULSE 83; RESP 26; O2SAT 94
[2021-10-12 14:51] LABS: Body Fluid Red Blood Cells 13550 /uL; Body Fluid Tot Nucleated Cells 633 /uL
[2021-10-12 14:58] LABS: Lactate Dehydrogenase 2109 U/L (313-618)
[2021-10-12 15:00] VITALS: BP 123/61; PULSE 81; RESP 28; O2SAT 93
[2021-10-12 15:27] VITALS: BP 124/60; PULSE 81; RESP 31; O2SAT 93
[2021-10-12 16:10] LABS: Body Fluid Appearance SLIGHTLY CLOUDY; Body Fluid Clotted? NO CLOTS PRESENT; Body Fluid Color PINK
[2021-10-12 16:37] LABS: Glucose Body Fluid 117 mg/dL; LDH Body Fluid 4465 U/L
[2021-10-12 18:57] LABS: Polynuclear WBC Body Fluid 7 %
[2021-10-12 18:58] LABS: Eosinophils Body Fluid 2 %; Mononuclear WBC Body Fluid 72 %; Other Cells Body Fluid 19 %
== END 2021-10-12 15:34 | disposition home or self-care (01) ==
PROVIDERS: Emergency Provider Emergency Medicine; PCP Family Medicine
DX: J90 Pleural effusion, not elsewhere classified (principal); R06.02 Shortness of breath; Z20.822 Contact with and (suspected) exposure to COVID-19
CPT/HCPCS: 32555; 36415; 71045; 71046; 80053; 82550; 82945; 83605; 83615; 83880; 84484; 85025; 85610; 85730; 87070; 87075; 87205; 87635; 89051; 93005; 99284; C9803

== ENCOUNTER 2021-11-07 21:25 | Inpatient (IN) | payer OTHER, SELFPAY ==
[2021-11-07 21:27] VITALS: BP 142/99; PULSE 107; RESP 18; TEMP 37.3; O2SAT 94; BMI 28.5
--- NOTE | 2021-11-07 21:44 | DI.RAD.S_ITS ---
PROCEDURE: XR ACUTE ABDOMEN SERIES INDICATIONS: Abdominal pain TECHNIQUE: One view chest and two views of the abdomen were acquired. COMPARISON: [facility], CR, XR CHEST 2V, 10/12/2021, 11:43. FINDINGS: Surgical changes and devices: There is a right internal jugular Port-A-Cath with the tip in the region of the cavoatrial junction, unchanged. Chest: There is a persistent small left pleural effusion with linear left basilar opacities consistent with consolidation or atelectasis. Right lung is clear. No pneumothorax. Heart size is normal. No pneumoperitoneum. Abdomen: There are multiple dilated loops of small bowel, measuring up to 3.7 cm in diameter, with associated air-fluid levels. There is a paucity of gas in the colon. No suspicious calcifications. Bones: No suspicious bony lesions. IMPRESSION: 1. Dilated loops of small bowel with air-fluid levels suggestive of small-bowel obstruction. 2. Persistent but decreased small left pleural effusion with left basilar atelectasis or consolidation. Dictated by: Khari Corado M.D. on 11/07/2021 at 22:34 Approved by: Khari Corado M.D. on 11/07/2021 at 22:44
[2021-11-07 22:26] LABS: Add Manual Diff / Slide Review NO; Basophils Absolute Auto 0 /uL (0-100); Basophils Percent Auto 0.2 % (0-2); Eosinophils Absolute Auto 0 /uL (0-450); Eosinophils Percent Auto 0.1 % (2-4); Hemoglobin 10.4 g/dL (12.0-16.0); Lymphocytes Absolute Auto 600 /uL (1100-4500); Lymphocytes Percent Auto 10.1 % (25-40); Mean Corpuscular HGB Conc 32.4 % (30-36); Mean Corpuscular Hemoglobin 26.8 PG (26-34); Mean Corpuscular Volume 82.9 fL (80-100); Monocytes Absolute Auto 1200 /uL (0-900); Neutrophils Absolute Auto 3800 /uL (1500-7000); Neutrophils Percent Auto 68.6 % (50-75); Platelet Count 338 X10^3/uL (150-400); Red Blood Cell Count 3.86 X10^6/uL (4.0-5.2); Red Cell Distribution Width 16.2 % (11.6-14.8); White Blood Cell Count 5.5 X10^3/uL (4.5-11.0)
--- NOTE | 2021-11-07 22:26 | ED_ITS ---
HPI - Abdominal Pain General Chief Complaint: Abdominal Pain Stated Complaint: Cancer complication and pain medication Time Seen by Provider: 11/07/21 21:31 Mode of arrival: Ambulatory History of Present Illness HPI narrative: 75F nonsmoker with history of small cell carcinoma be managed locally with immunotherapy presents with family in the chief complaint of increasing abdominal pain, distension and bloating, nausea and decreased bowel movements for the better part of a week. She has been in touch with her doctors and has been trying [id number] stool softener such as MiraLax with no relief. She is no longer passing gas or having bowel movements. She is unable to eat or drink and she has significant pain despite use of her medications at home. Her pain is worse with motion and might improve slightly with rest. She has had low-grade fever and chills. She denies runny nose, sore throat or cough. She has no chest pain or shortness of breath Related Data Home Medications Medication Instructions Recorded Confirmed amlodipine 10 mg tablet 1 tab PO QPM #0 09/21/17 10/18/21 losartan 25 mg tablet 25 mg PO QAM 12/10/20 10/18/21 metoprolol succinate 50 mg 50 mg PO BID 12/10/20 10/18/21 tablet,extended release 24 hr rosuvastatin 10 mg tablet 10 mg PO BEDTIME 12/10/20 10/18/21 meloxicam 7.5 mg PO PRN PRN 06/07/21 10/18/21 acetaminophen 500 mg tablet 500 mg PO Q6H PRN 08/01/21 10/18/21 aspirin 81 mg tablet,delayed 81 mg PO DAILY 08/01/21 10/18/21 release Previous Rx's Medication Instructions Recorded ondansetron HCl 4 mg tablet 4 mg PO Q6H PRN #30 tab 07/07/21 lidocaine-prilocaine 2.5 %-2.5 % 1 applic TOPICAL PRN PRN #30 g 08/23/21 topical cream oxycodone-acetaminophen 10 mg-325 1 tab PO Q6H PRN #60 tab 10/13/21 mg tablet morphine 15 mg tablet,extended 15 mg PO Q12H 30 Days #60 tab 10/18/21 release (MS Contin) oxycodone-acetaminophen 5 mg-325 1 tab PO Q8H PRN #120 tab 05/31/22 mg tablet lactulose 10 gram/15 mL oral 10 g (15 mL) PO DAILY PRN 30 Days 11/07/21 solution #250 ml prochlorperazine maleate 10 mg 10 mg PO Q6H PRN #20 tab 11/07/21 tablet (Compazine) Allergies Allergy/AdvReac Type Severity Reaction Status Date / Time Penicillins Allergy Mild Rash Verified 09/28/21 16:21 Review of Systems Review of Systems Narrative: GENERAL: See HPI HEENT: Denies sinus pain, ear pain, sore throat, difficulty swallowing, dizziness. RESPIRATORY: Denies dyspnea, cough, wheezing, hemoptysis, sputum. CARDIOVASCULAR: Denies chest pain, palpitations, orthopnea, edema, GASTROINTESTINAL: See HPI : Denies dysuria, frequency, incontinence, hematuria, urinary retention. MUSCULOSKELETAL: denies weakness, joint pain, or bony pain SKIN: Denies rash, skin lesions, or other NEUROLOGIC: Denies weakness, headache, numbness, change in speech, confusion, seizures, incoordination. PSYCHIATRIC: No concerning psychosocial issues. 12 point review of systems is negative except for those stated above Patient History Medical History Elevated cholesterol FH: carotid endarterectomy Hepatic steatosis Hypertension Night sweats Swollen lymph nodes TIA (transient ischemic attack) Surgical History History of hysterectomy Social History household members: spouse Smoking Status: Never smoker alcohol intake: current Smoking Status: Never smoker alcohol intake frequency: a few times a week Substance Use Type: does not use Exam Narrative Exam Narrative: GENERAL: [75 year old patient appears stated age. Well-developed patient, in mild distress. HEAD: Atraumatic. Normocephalic. EYES: Pupils equal round and reactive. Extraocular motions intact. No scleral icterus. No injection or drainage. ENT: Nose without bleeding, purulent drainage. Throat without erythema, tonsillar hypertrophy or exudate. Airway patent. NECK: Trachea midline. Non tender CARDIOVASCULAR: Regular rate and rhythm without murmurs, gallops, or rubs. RESPIRATORY: Clear to auscultation. Breath sounds equal bilaterally. No wheezes, rales, or rhonchi. GASTROINTESTINAL: Distended and tender with decreased bowel sounds EXTREMITIES: No edema or joint tenderness. BACK: Nontender without deformity or crepitance. No flank tenderness. NEURO: AOx3. SKIN: No rash or erythema of visible areas Initial Vital Signs Initial Vital Signs: Vital Signs Temperature 99.1 F 11/07/21 21:27 Pulse Rate 107 H 11/07/21 21:27 Respiratory Rate 18 11/07/21 21:27 Blood Pressure 142/99 H 11/07/21 21:27 Pulse Oximetry 94 11/07/21 21:27 Course Orders Ordered: ED Orders 11/07/21 21:44 XR acute abdomen series Stat COVID19 -Nasal RAPID/Pre-Proc Stat Urinalysis and Microscopic Stat 11/07/21 22:15 Complete Blood Count AUTO DIFF Stat Comprehensive Metabolic Panel Stat Lactate (Lactic Acid) Stat 11/07/21 22:30 Blood Culture Stat 11/07/21 23:11 CT abdomen pelvis w con Stat Sodium Chloride (Normal Saline 0.9%) 1,000 mls @ 200 mls/hr IV CONT ALIRIO Last Admin: 11/08/21 02:36 Dose: 200 mls/hr Documented by: MASOUD Discontinued Medications Hydromorphone HCl (Hydromorphone 0.5 Mg Inj) 0.5 mg IV NOW ONE Stop: 11/08/21 02:21 Last Admin: 11/08/21 02:29 Dose: 0.5 mg Documented by: MASOUD Sodium Chloride (Normal Saline 0.9%) 1,000 mls @ 1,000 mls/hr IV BOLUS ONE Stop: 11/07/21 22:43 Last Infusion: 11/08/21 01:23 Dose: 0 mls/hr Documented by: Admin: 11/07/21 22:57 Dose: 1,000 mls/hr Documented by: MASOUD Midazolam HCl (Midazolam 2 Mg/2 Ml Vial) 2 mg IV NOW ONE Stop: 11/07/21 23:12 Last Admin: 11/07/21 23:54 Dose: 2 mg Documented by: MASOUD Reevaluation(s) Reevaluation #1: Significant improvement after NG is place, nearly 1 L out Consultations Consultation #1: Dr. Clemente consulted given transition point and high grade nature of obstruction, he requests admission to hospitalist Consultation #2: Dr. Biswas happy to accept on behalf of Dr. Cruz Vital Signs Vital signs: Vital Signs - 8 hr 11/07/21 21:27 11/08/21 02:26 11/08/21 02:30 Temperature 99.1 F Pulse Rate 107 H 107 H 105 H Respiratory Rate 18 Blood Pressure 142/99 H Pulse Oximetry 94 88 L 87 L MDM - Abdominal Pain Lab Data Result diagrams: 11/07/21 22:15 11/07/21 22:15 Labs: Lab Results 11/07/21 11/07/21 11/07/21 Range/Units 22:15 22:15 22:15 WBC 5.5 (4.5-11.0) X10^3/uL RBC 3.86 L (4.0-5.2) X10^6/uL Hgb 10.4 L (12.0-16.0) g/dL Hct 32.0 L (36-46) % MCV 82.9 (80-100) fL MCH 26.8 (26-34) PG MCHC 32.4 (30-36) % RDW 16.2 H (11.6-14.8) % Plt Count 338 (150-400) X10^3/uL Neut % (Auto) 68.6 (50-75) % Lymph % (Auto) 10.1 L (25-40) % [place] % (Auto) 21.0 H (3-14) % Eos % (Auto) 0.1 L (2-4) % Baso % (Auto) 0.2 (0-2) % Neut # (Auto) 3800 (6772-4765) /uL Lymph # (Auto) 600 L (0774-0655) /uL [place] # (Auto) 1200 H (0-900) /uL Eos # (Auto) 0 (0-450) /uL Baso # (Auto) 0 (0-100) /uL Sodium 135 L (137-145) mmol/L Potassium 3.8 (3.4-5.1) mmol/L Chloride 96 L (98-107) mmol/L Carbon Dioxide 26 (22-32) mmol/L BUN 15 (7-17) mg/dL Creatinine 1.04 (0.52-1.04) mg/dL Estimated GFR 56 L (>60) mL/min BUN/Creatinine Ratio 14.4 (6-22) Glucose 140 H (80-110) mg/dL Lactate 2.2 H (0.7-2.1) mmol/L Calcium 11.4 H (8.4-10.2) mg/dL Total Bilirubin 1.1 (0.2-1.3) mg/dL AST 36 (14-36) IU/L ALT 16 (<35) IU/L Alkaline Phosphatase 178 H (38-126) U/L Total Protein 6.9 (6.3-8.2) g/dL Albumin 3.6 (3.5-5.0) g/dL Globulin 3.3 (1.7-4.1) g/dL Albumin/Globulin Ratio 1.1 (1.0-2.8) 11/08/21 Range/Units 00:30 WBC (4.5-11.0) X10^3/uL RBC (4.0-5.2) X10^6/uL Hgb (12.0-16.0) g/dL Hct (36-46) % MCV (80-100) fL MCH (26-34) PG MCHC (30-36) % RDW (11.6-14.8) % Plt Count (150-400) X10^3/uL Neut % (Auto) (50-75) % Lymph % (Auto) (25-40) % [place] % (Auto) (3-14) % Eos % (Auto) (2-4) % Baso % (Auto) (0-2) % Neut # (Auto) (5845-8925) /uL Lymph # (Auto) (0497-6652) /uL [place] # (Auto) (0-900) /uL Eos # (Auto) (0-450) /uL Baso # (Auto) (0-100) /uL Sodium (137-145) mmol/L Potassium (3.4-5.1) mmol/L Chloride (98-107) mmol/L Carbon Dioxide (22-32) mmol/L BUN (7-17) mg/dL Creatinine (0.52-1.04) mg/dL Estimated GFR (>60) mL/min BUN/Creatinine Ratio (6-22) Glucose (80-110) mg/dL Lactate 2.0 (0.7-2.1) mmol/L Calcium (8.4-10.2) mg/dL Total Bilirubin (0.2-1.3) mg/dL AST (14-36) IU/L ALT (<35) IU/L Alkaline Phosphatase (38-126) U/L Total Protein (6.3-8.2) g/dL Albumin (3.5-5.0) g/dL Globulin (1.7-4.1) g/dL Albumin/Globulin Ratio (1.0-2.8) Imaging Data Abdominal x-ray: Radiologist's Impression: Launch?Image [address] [address] XRay Report Signed Patient: Sylvia Carmen MR#: [id number] : 1945 Acct:[id number] Age/Sex: 75 / F Date of Service: 11/07/21 Loc: ED Accession Number: [id number] ?? Procedure: XR acute abdomen series Ordering Provider: Kvng Hannah D.O. PROCEDURE:? XR ACUTE ABDOMEN SERIES ? INDICATIONS:? Abdominal pain ? TECHNIQUE:? One view chest and two views of the abdomen were acquired.? ? COMPARISON:? [facility], CR, XR CHEST 2V, 10/12/2021, 11:43. ? FINDINGS:? ? Surgical changes and devices:? There is a right internal jugular Port-A-Cath with the tip in the region of the cavoatrial junction, unchanged. ? Chest:? There is a persistent small left pleural effusion with linear left basilar opacities consistent with consolidation or atelectasis.? Right lung is clear.? No pneumothorax.? Heart size is normal.? No pneumoperitoneum.? ? Abdomen:? There are multiple dilated loops of small bowel, measuring up to 3.7 cm in diameter, with associated air-fluid levels.? There is a paucity of gas in the colon.? No suspicious calcifications.? ? Bones:? No suspicious bony lesions.? ? IMPRESSION:? ? 1. Dilated loops of small bowel with air-fluid levels suggestive of small-bowel obstruction.? ? 2. Persistent but decreased small left pleural effusion with left basilar atelectasis or consolidation. ? Dictated by: Khari Corado M.D. on 11/07/2021 at 22:34 ? ? Approved by: Khari Corado M.D. on 11/07/2021 at 22:44 ? CT scan - abdomen/pelvis: Radiologist's Impression: [address] [address] [address] Scan Report Signed Patient: Sylvia Carmen MR#: [id number] : 1945 Acct:[id number] Age/Sex: 75 / F Date of Service: 11/07/21 Loc: ED Accession Number: [id number] ?? Procedure: CT abdomen pelvis w con Ordering Provider: Kvng Hannah D.O. PROCEDURE:? CT ABDOMEN PELVIS W CON ? INDICATIONS:? bowel obstruction ? TECHNIQUE:? After the administration of IV contrast, axial sections were acquired from the lung bases to the pubic symphysis.? Coronal and sagittal reformats were performed.? For radiation dose reduction, the following was used:? automated exposure control, adjustment of mA and/or kV according to patient size. ? COMPARISON:? [facility], [place], [place] PET CT FUSION SKULL 2 THIGH, 07/06/2021, 8:16.? [facility], CT, CT ABDOMEN PELVIS W CON, 06/27/2021, 10:31.? [facility], CT, CT ABDOMEN PELVIS W CON, 09/28/2021, 18:33. ? FINDINGS:? Image quality:? Excellent.? ? Lung bases:? There is a persistent small left pleural effusion with compressive atelectasis and consolidation in the left lower lobe.? There is also a new small right pleural effusion with associated compressive atelectasis and mild consolidation.? ? Heart:? Heart is normal in size.? There is a partially visualized enlarged as ago esophageal lymph node measuring up to 1.1 cm in short axis.? A nasogastric tube extends into the stomach. ? ? ABDOMEN: Liver:? No mass lesion. Gallbladder:? Distended without calcified gallstones or wall thickening. Biliary ducts:? No biliary ductal dilatation.? ? Pancreas:? Unremarkable.? ? Spleen:? Normal in size.? ? Adrenal Glands:? No adrenal nodules.? ? Kidneys and Ureters:? There is mild fullness of the left renal collecting system which is increased from the prior study.? The left ureter is nondistended.? No definite obstructing stone or mass visualized.? No hydronephrosis in the right kidney. ? Stomach and Bowel:? There are multiple distended loops of small bowel measuring up to approximately 3.1 cm with air-fluid levels.? There is is a transition point in the right lower quadrant within the right hemipelvis.? Findings are consistent with a s mall-bowel obstruction.? The colon demonstrates normal caliber with intraluminal fluid in the ascending and transverse colon suggestive of a gastroenteritis.? There is colonic diverticulosis without acute diverticulitis.? Mild segmental wall thickening in the sigmoid colon may reflect a mild colitis. Peritoneum:? There is a small to moderate amount of intraperitoneal free fluid.? No free air. ? There is peritoneal thickening and enhancement as well as fat stranding involving the omentum consistent with omental caking.? The findings are consistent with peritoneal carcinomatosis and appear increased compared to the prior study.? ? Ventral Wall: ? No hernia.? Abdominal Nodes:? Multiple enlarged mesenteric and retroperitoneal lymph nodes are redemonstrated with slight interval decrease in size compared to the prior study.? A hobbies and crafts sales representative left periaortic node at the level of the left renal hilum measures up to 1.7 cm in short axis on series 2, image 39 compared to 2.0 cm on the prior stud y.? The findings are compatible with partial response to therapy of metastatic disease. Vessels:? Aorta and inferior vena cava are normal in size.? There is intimal flap in the infrarenal abdominal aorta redemonstrated consistent with a short segment dissection as seen on series 2, image 41.? The findings are similar to the prior study. ? PELVIS: Pelvic Organs:? Uterus is surgically absent.? ? Bladder:? Unremarkable.? ? Pelvic Nodes: No enlarged lymph nodes.? Miscellaneous: No inguinal hernias are seen. ? ? ? Bones:? Visualized osseous structures demonstrate no suspicious focal lesions. ? IMPRESSION:? ? 1.? Dilated loops of small bowel with air-fluid levels and a transition point in the right lower quadrant consistent with a small-bowel obstruction.? Given the presence of interloop fluid and mesenteric edema, a developing high-grade obstruction suspected.? No pneumatosis or portal venous gas. ? 2. Increased omental caking, ascites, and peritoneal thickening and enhancement consistent with progression of peritoneal carcinomatosis. ? Findings discussed with Dr. Hannah on 11/08/2021 at 12:53 a.m.. ? 3. Decrease in size of mesenteric and retroperitoneal lymphadenopathy consistent with partial response to therapy of metastatic disease. ? 4. Small bilateral pleural effusions with associated posterior compressive atelectasis and consolidation, increased on the right compared to the prior study. ? 5. 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 ? ? Dictated by: Khari Corado M.D. on 11/08/2021 at 0:48 ? ? Approved by: Khari Corado M.D. on 11/08/2021 at 1:03 ? Discharge Plan Departure Patient Disposition: Admitted As Inpatient Clinical Impression: Bowel obstruction
[2021-11-07 22:50] LABS: Lactate (Lactic Acid) 2.2 mmol/L (0.7-2.1)
[2021-11-07 22:51] LABS: Alanine Aminotransferase 16 IU/L (<35); Albumin 3.6 g/dL (3.5-5.0); Albumin Globulin Ratio 1.1 (1.0-2.8); Alkaline Phosphatase 178 U/L (38-126); Aspartate Aminotransferase 36 IU/L (14-36); BUN Creatinine Ratio 14.4 (6-22); Bilirubin Total 1.1 mg/dL (0.2-1.3); Blood Urea Nitrogen 15 mg/dL (7-17); Calcium 11.4 mg/dL (8.4-10.2); Carbon Dioxide 26 mmol/L (22-32); Chloride 96 mmol/L (98-107); Estimated Glomerular Filt Rate 56 mL/min (>60); Globulin 3.3 g/dL (1.7-4.1); Glucose 140 mg/dL (80-110); HEMOLYSIS < 15 (0-50); Potassium 3.8 mmol/L (3.4-5.1); Sodium 135 mmol/L (137-145); Total Protein 6.9 g/dL (6.3-8.2)
[2021-11-07] MEDS: SODIUM CHLORIDE 0.9% 1,000 ML 1000 ML IV (22:57)
--- NOTE | 2021-11-07 23:11 | DI.CT.S_ITS ---
PROCEDURE: CT ABDOMEN PELVIS W CON INDICATIONS: bowel obstruction TECHNIQUE: After the administration of IV contrast, axial sections were acquired from the lung bases to the pubic symphysis. Coronal and sagittal reformats were performed. For radiation dose reduction, the following was used: automated exposure control, adjustment of mA and/or kV according to patient size. COMPARISON: [facility], [place], [place] CT FUSION SKULL 2 THIGH, 07/06/2021, 8:16. [facility], CT, CT ABDOMEN PELVIS W CON, 06/27/2021, 10:31. [facility], CT, CT ABDOMEN PELVIS W CON, 09/28/2021, 18:33. FINDINGS: Image quality: Excellent. Lung bases: There is a persistent small left pleural effusion with compressive atelectasis and consolidation in the left lower lobe. There is also a new small right pleural effusion with associated compressive atelectasis and mild consolidation. Heart: Heart is normal in size. There is a partially visualized enlarged as ago esophageal lymph node measuring up to 1.1 cm in short axis. A nasogastric tube extends into the stomach. ABDOMEN: Liver: No mass lesion. Gallbladder: Distended without calcified gallstones or wall thickening. Biliary ducts: No biliary ductal dilatation. Pancreas: Unremarkable. Spleen: Normal in size. Adrenal Glands: No adrenal nodules. Kidneys and Ureters: There is mild fullness of the left renal collecting system which is increased from the prior study. The left ureter is nondistended. No definite obstructing stone or mass visualized. No hydronephrosis in the right kidney. Stomach and Bowel: There are multiple distended loops of small bowel measuring up to approximately 3.1 cm with air-fluid levels. There is is a transition point in the right lower quadrant within the right hemipelvis. Findings are consistent with a small-bowel obstruction. The colon demonstrates normal caliber with intraluminal fluid in the ascending and transverse colon suggestive of a gastroenteritis. There is colonic diverticulosis without acute diverticulitis. Mild segmental wall thickening in the sigmoid colon may reflect a mild colitis. Peritoneum: There is a small to moderate amount of intraperitoneal free fluid. No free air. There is peritoneal thickening and enhancement as well as fat stranding involving the omentum consistent with omental caking. The findings are consistent with peritoneal carcinomatosis and appear increased compared to the prior study. Ventral Wall: No hernia. Abdominal Nodes: Multiple enlarged mesenteric and retroperitoneal lymph nodes are redemonstrated with slight interval decrease in size compared to the prior study. A customer service representative teller left periaortic node at the level of the left renal hilum measures up to 1.7 cm in short axis on series 2, image 39 compared to 2.0 cm on the prior study. The findings are compatible with partial response to therapy of metastatic disease. Vessels: Aorta and inferior vena cava are normal in size. There is intimal flap in the infrarenal abdominal aorta redemonstrated consistent with a short segment dissection as seen on series 2, image 41. The findings are similar to the prior study. PELVIS: Pelvic Organs: Uterus is surgically absent. Bladder: Unremarkable. Pelvic Nodes: No enlarged lymph nodes. Miscellaneous: No inguinal hernias are seen. Bones: Visualized osseous structures demonstrate no suspicious focal lesions. IMPRESSION: 1. Dilated loops of small bowel with air-fluid levels and a transition point in the right lower quadrant consistent with a small-bowel obstruction. Given the presence of interloop fluid and mesenteric edema, a developing high-grade obstruction suspected. No pneumatosis or portal venous gas. 2. Increased omental caking, ascites, and peritoneal thickening and enhancement consistent with progression of peritoneal carcinomatosis. Findings discussed with Dr. Hannah on 11/08/2021 at 12:53 a.m.. 3. Decrease in size of mesenteric and retroperitoneal lymphadenopathy consistent with partial response to therapy of metastatic disease. 4. Small bilateral pleural effusions with associated posterior compressive atelectasis and consolidation, increased on the right compared to the prior study. 5. 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 Dictated by: Khari Corado M.D. on 11/08/2021 at 0:48 Approved by: Khari Corado M.D. on 11/08/2021 at 1:03
[2021-11-07] MEDS: MIDAZOLAM 2 MG/2 ML VIAL IV (23:54)
[2021-11-08] VITALS (19 sets, daily range): BP systolic 114–140; BP diastolic 59–68; PULSE 94–114; RESP 17; TEMP 36.7–39.1; O2SAT 82–96; BMI 27.5
[2021-11-08 00:21] LABS: Reflexed Lactate in 2 Hours Y
[2021-11-08] MEDS: HYDROMORPHONE 0.5 MG INJ IV (02:29)
--- NOTE | 2021-11-08 02:30 | PC.NURSE ---
pt moved to room 12 and placed on hospital bed lights dimmed for comfort
[2021-11-08] MEDS: SODIUM CHLORIDE 0.9% 1,000 ML 200 ML IV (02:36)
[2021-11-08 05:13] LABS: COVID19 -Nasal RAPID Negative (Negative)
--- NOTE | 2021-11-08 06:16 | DI.RAD.S_ITS ---
PROCEDURE: XR CHEST 1V INDICATIONS: SOB TECHNIQUE: One view of the chest was acquired. COMPARISON: None. FINDINGS: Surgical changes and devices: Right-sided tunneled port device is in place. Distal tip projects over the lower SVC. Nasogastric tube is also in place with the distal tip projecting in the left upper abdomen in the expected location of the stomach. However, the distal side port projects over the level of the gastroesophageal junction. Lungs and pleura: Mild streaky left basilar airspace opacities likely representing atelectasis. No focal consolidation. No pleural effusions or pneumothorax. Mediastinum: Mediastinal contours appear normal. Heart size is enlarged. Bones and chest wall: No suspicious bony lesions. Overlying soft tissues appear unremarkable. IMPRESSION: 1. Nasogastric tube with distal tip projecting in the expected location of the stomach. However, distal side port projects over the gastroesophageal junction. Repositioning recommended with advancing approximately 5 cm. This was communicated to Dr. Hannah by the overnight radiologist at 0656hrs 2. Mild cardiomegaly. 3. Streaky left basilar opacities likely representing atelectasis. No focal consolidation. No significant discrepancy with the information technology architect radiology preliminary report. Dictated by: Jayden Cannon M.D. on 11/08/2021 at 7:30 Approved by: Jayden Cannon M.D. on 11/08/2021 at 7:34
--- NOTE | 2021-11-08 06:16 | PC.NURSE ---
pt to bathroom per w/c moderate amount of loose stool passed and pt taken back to room per w/c, pt moving without difficulty but after getting back in bed MISHRA was noted, pt was placed back on O2 @ 3L
--- NOTE | 2021-11-08 06:26 | PC.NURSE ---
Dr Hannah notified of O2 requirement and persistent tachycardia, orders received.
[2021-11-08 06:59] LABS: PCO2 ABG 35.2 mmHg (35-45); PO2 ABG 51 mmHg (80-100); pH ABG 7.42 (7.35-7.45)
[2021-11-08 07:00] LABS: Fractionated Inspired Oxygen 21; HCO3 ABG 23 mmol/L (22-26); Oxygen Saturation ABG 87 % (95-100); TCO2 ABG 24 mmol/L (21-31)
--- NOTE | 2021-11-08 07:06 | PC.NURSE ---
NG tube inserted sascha 5 cm more as per Dr Sanders's instructions
--- NOTE | 2021-11-08 07:07 | DI.CT.S_ITS ---
PROCEDURE: CT ANGIO CHEST PE PROTOCOL INDICATIONS: SOB, hypoxemic, tachycardic TECHNIQUE: After the administration of intravenous contrast, 2 mm thick sections acquired from the pulmonary apices to the posterior costophrenic angles. 3-dimensional maximum intensity projection (MIP) coronal and sagittal reformats were then acquired through the thorax. For radiation dose reduction, the following was used: automated exposure control, adjustment of mA and/or kV according to patient size. COMPARISON: [facility], CT, CT ANGIO CHEST PE PROTOCOL, 09/28/2021, 18:33. FINDINGS: Image quality: Excellent. Pulmonary arteries: Pulmonary arteries are normal in size, and demonstrate no intraluminal filling defects to suggest central pulmonary embolism. Lungs and pleura: There is bibasilar atelectasis with a small right and trace left pleural effusion. Areas of atelectatic consolidation are seen in both lower lobes posteriorly. No pneumothorax. The mid and upper lung haskins are clear. Lung findings are unchanged compared to 09/28/2021. Mediastinum: Heart size is normal, without pericardial effusion. A right paratracheal lymph node is unchanged in size compared to the prior CT. Additional supraclavicular enlarged lymph nodes are seen, for example a left supraclavicular lymph node seen medially series 5, image 5 measuring 1.6 x 2.0 cm is also unchanged compared to the prior CT. Thoracic aorta is normal in caliber and enhancement. Esophagus is normal in caliber, without hiatal hernia. Bones and chest wall: No suspicious bony lesions. Ribs and thoracic spine appear intact throughout. Thyroid gland is normal. There is a right chest wall Port-A-Cath. No axillary or supraclavicular adenopathy. Abdomen: Visualized upper abdominal solid organs appear normal in the early arterial phase of enhancement. IMPRESSION: 1. No pulmonary embolism identified. 2. Mediastinal and supraclavicular adenopathy, unchanged compared to 09/28/2021. 3. Bibasilar atelectasis and pleural effusions. Dictated by: Jairo Turcios M.D. on 11/08/2021 at 8:18 Approved by: Jairo Turcios M.D. on 11/08/2021 at 8:27
[2021-11-08 08:17] LABS: Hematocrit 28.2 % (36-46); Hemoglobin 9.4 g/dL (12.0-16.0); Mean Corpuscular HGB Conc 33.4 % (30-36); Mean Corpuscular Hemoglobin 27.4 PG (26-34); Platelet Count 285 X10^3/uL (150-400); Red Blood Cell Count 3.44 X10^6/uL (4.0-5.2); Red Cell Distribution Width 15.8 % (11.6-14.8); White Blood Cell Count 4.9 X10^3/uL (4.5-11.0)
[2021-11-08 08:24] LABS: Add Manual Diff / Slide Review YES
[2021-11-08 08:29] LABS: Alanine Aminotransferase 14 IU/L (<35); Albumin 3.1 g/dL (3.5-5.0); Albumin Globulin Ratio 1.1 (1.0-2.8); Alkaline Phosphatase 136 U/L (38-126); Aspartate Aminotransferase 33 IU/L (14-36); Bilirubin Total 0.9 mg/dL (0.2-1.3); Blood Urea Nitrogen 17 mg/dL (7-17); Calcium 10.2 mg/dL (8.4-10.2); Carbon Dioxide 28 mmol/L (22-32); Chloride 99 mmol/L (98-107); Estimated Glomerular Filt Rate 55 mL/min (>60); Globulin 2.8 g/dL (1.7-4.1); Glucose 157 mg/dL (80-110); HEMOLYSIS 17 (0-50); Potassium 4.1 mmol/L (3.4-5.1); Sodium 135 mmol/L (137-145); Total Protein 5.9 g/dL (6.3-8.2)
[2021-11-08 09:00] LABS: Neutrophils Absolute Manual 3038 /uL (3000-5900); Total Cells Counted 100
[2021-11-08 09:01] LABS: Anisocytosis 1+
[2021-11-08] MEDS: ENOXAPARIN 40 MG/0.4 ML SYRINGE SUBCUT (10:36)
--- NOTE | 2021-11-08 17:39 | PM.CN ---
History of Present Illness Consult details Date Patient Seen: 11/08/21 Time Patient Seen: 17:40 Chief complaint: Cancer complication and pain medication Narrative: 75-year-old woman with a recent diagnosis of metastatic squamous cell carcinoma presented to the ER last night complaining of abdominal pain. She had an episode of vomiting about 5 days ago after taking morphine. She has had decreased appetite for the past several weeks. She also had a period of several days without any bowel movements or flatus but she had had some liquid bowel movements yesterday and she has had more again today. She denies passing flatus. A CT scan was performed when she was in the ER last night which suggested a small bowel obstruction. There does appear to be evidence of extensive peritoneal carcinomatosis on CT. She had an NG-tube placed earlier today with modest output. Meds Home Medications and Allergies Home Medications Medication Instructions Recorded Confirmed Type amlodipine 10 mg tablet 1 tab PO QPM #0 09/21/17 11/08/21 History losartan 25 mg tablet 50 mg PO QAM 12/10/20 11/08/21 History rosuvastatin 10 mg tablet 40 mg PO BEDTIME 12/10/20 11/08/21 History ondansetron HCl 4 mg tablet 4 mg PO Q6H PRN #30 tab 07/07/21 11/08/21 Rx aspirin 81 mg tablet,delayed 81 mg PO DAILY 08/01/21 11/08/21 History release lidocaine-prilocaine 2.5 %-2.5 % 1 applic TOPICAL PRN PRN #30 g 08/23/21 11/08/21 Rx topical cream lactulose 10 gram/15 mL oral 10 g (15 mL) PO DAILY PRN 30 Days 11/07/21 11/08/21 Rx solution #250 ml prochlorperazine maleate 10 mg 10 mg PO Q6H PRN #20 tab 11/07/21 11/08/21 Rx tablet (Compazine) metoprolol tartrate 50 mg tablet 50 mg PO BID 11/08/21 11/08/21 History oxycodone-acetaminophen 5 mg-325 1 tab PO Q6H PRN 11/08/21 11/08/21 History mg tablet Allergies Allergy/AdvReac Type Severity Reaction Status Date / Time Penicillins Allergy Mild Rash Verified 11/08/21 15:22 Exam Vital Signs (past 8 hours): - 11/08/21 10:40 Temperature 98.1 F Oxygen Delivery Method Room Air Oxygen Flow Rate 2 GI Other: Abdomen is soft, moderately tender to deep palpation. No peritoneal findings There is a low midline scar from prior hysterectomy Objective Labs Result Diagrams: 11/08/21 07:40 11/08/21 07:40 Labs: Laboratory Results - last 24 hr 11/07/21 11/07/21 11/07/21 22:15 22:15 22:15 WBC 5.5 RBC 3.86 L Hgb 10.4 L Hct 32.0 L MCV 82.9 MCH 26.8 MCHC 32.4 RDW 16.2 H Plt Count 338 Neut % (Auto) 68.6 Lymph % (Auto) 10.1 L Lee % (Auto) 21.0 H Eos % (Auto) 0.1 L Baso % (Auto) 0.2 Neut # (Auto) 3800 Lymph # (Auto) 600 L Lee # (Auto) 1200 H Eos # (Auto) 0 Baso # (Auto) 0 Total Counted Seg Neutrophils % Band Neutrophils % Lymphocytes % (Manual) Monocytes % (Manual) Metamyelocytes % Neutrophils # (Manual) RBC Morphology Anisocytosis ABG pH ABG pCO2 ABG pO2 ABG HCO3 ABG Total CO2 ABG O2 Saturation ABG Base Excess FiO2 Sodium 135 L Potassium 3.8 Chloride 96 L Carbon Dioxide 26 BUN 15 Creatinine 1.04 Estimated GFR 56 L BUN/Creatinine Ratio 14.4 Glucose 140 H Lactate 2.2 H Calcium 11.4 H Total Bilirubin 1.1 AST 36 ALT 16 Alkaline Phosphatase 178 H Total Protein 6.9 Albumin 3.6 Globulin 3.3 Albumin/Globulin Ratio 1.1 Nasal Screen MRSA (PCR) SARS-CoV-2 (PCR) 11/08/21 11/08/21 11/08/21 00:30 04:56 06:46 WBC RBC Hgb Hct MCV MCH MCHC RDW Plt Count Neut % (Auto) Lymph % (Auto) Lee % (Auto) Eos % (Auto) Baso % (Auto) Neut # (Auto) Lymph # (Auto) Lee # (Auto) Eos # (Auto) Baso # (Auto) Total Counted Seg Neutrophils % Band Neutrophils % Lymphocytes % (Manual) Monocytes % (Manual) Metamyelocytes % Neutrophils # (Manual) RBC Morphology Anisocytosis ABG pH 7.42 ABG pCO2 35.2 ABG pO2 51 L ABG HCO3 23 ABG Total CO2 24 ABG O2 Saturation 87 L ABG Base Excess -2.0 FiO2 21 Sodium Potassium Chloride Carbon Dioxide BUN Creatinine Estimated GFR BUN/Creatinine Ratio Glucose Lactate 2.0 Calcium Total Bilirubin AST ALT Alkaline Phosphatase Total Protein Albumin Globulin Albumin/Globulin Ratio Nasal Screen MRSA (PCR) SARS-CoV-2 (PCR) Negative 11/08/21 11/08/21 11/08/21 07:40 07:40 09:22 WBC 4.9 RBC 3.44 L Hgb 9.4 L Hct 28.2 L MCV 82.0 MCH 27.4 MCHC 33.4 RDW 15.8 H Plt Count 285 Neut % (Auto) Not Reportable Lymph % (Auto) Not Reportable Lee % (Auto) Not Reportable Eos % (Auto) Not Reportable Baso % (Auto) Not Reportable Neut # (Auto) Lymph # (Auto) Not Reportable Lee # (Auto) Not Reportable Eos # (Auto) Baso # (Auto) Not Reportable Total Counted 100 Seg Neutrophils % 42.0 Band Neutrophils % 20.0 H Lymphocytes % (Manual) 22.0 L Monocytes % (Manual) 14.0 H Metamyelocytes % 2.0 H Neutrophils # (Manual) 3038 RBC Morphology See below Anisocytosis 1+ H ABG pH ABG pCO2 ABG pO2 ABG HCO3 ABG Total CO2 ABG O2 Saturation ABG Base Excess FiO2 Sodium 135 L Potassium 4.1 Chloride 99 Carbon Dioxide 28 BUN 17 Creatinine 1.06 H Estimated GFR 55 L BUN/Creatinine Ratio 16.0 Glucose 157 H Lactate Calcium 10.2 Total Bilirubin 0.9 AST 33 ALT 14 Alkaline Phosphatase 136 H Total Protein 5.9 L Albumin 3.1 L Globulin 2.8 Albumin/Globulin Ratio 1.1 Nasal Screen MRSA (PCR) Negative for mrsa SARS-CoV-2 (PCR) [facility] Medical History Elevated cholesterol FH: carotid endarterectomy Hepatic steatosis Hypertension Night sweats Swollen lymph nodes TIA (transient ischemic attack) Surgical History History of hysterectomy Social History household members: spouse Tobacco & Substance Use Smoking Status: Never smoker alcohol intake: never Assessment & Plan Assessment and plan (1) Bowel obstruction: Qualifiers: Intestinal obstruction type: unspecified Intestinal obstruction extent: unspecified extent Qualified Code(s): K56.609 - Unspecified intestinal obstruction, unspecified as to partial versus complete obstruction Status: Acute Plan Clinically she does not appear to be obstructed however her intra-abdominal metastatic disease could be causing her abdominal pain and difficulty with tolerating a diet. Recommend discontinuation of NG tube and clear liquid diet for now. Time Spent With Patient Critical Care time: I spent a total of [] minutes of critical care time on this patient's care today; this time is exclusive of procedural time.
--- NOTE | 2021-11-08 17:42 | PM.HP.1 ---
History of Present Illness History of Present Illness Date Patient Seen: 11/08/21 Time Patient Seen: 08:00 Date of Onset of Symptoms: 11/04/21 Chief complaint: Cancer complication and pain medication Narrative: This is a very pleasant 75-year-old female who is well known to me. She was diagnosed earlier this year with squamous cell carcinoma from biopsy of a left clavicular mass. She had a subsequent EGD ultrasound-guided biopsy in July of 2021 which also showed poorly differentiated squamous cell carcinoma. Further workup revealed metastases to liver retroperitoneal lymph nodes and right pelvic sidewall as well as omentum. She is being treated by Dr. Amador with immunotherapy, Tecentriq, she has PDL-1 positive. She had her last dose on Sunday. She started developing constipation and was then having worsening pain in her abdomen. This is been an ongoing problem for her as thought it is related to metastases to the right pelvic sidewall, liver and omentum. She then took morphine on Sunday and this caused severe vomiting and she has felt poorly since then and then developed diarrhea last night. She has not had a fever to her knowledge. She was evaluated in the ER she had a CT angiogram due to requiring 1-2 L nasal cannula oxygen which was negative but does show trace and mild pleural effusions bilateral. CT scan abdomen and pelvis shows decrease size of retroperitoneal lymph nodes but what looks like increase in load to omentum. CT scan showed bowel obstruction and she was admitted. NG tube was placed in the ER and she had significant relief from that. She received dilaudid as well and is currently not having any pain. General surgery was consulted. Past medical history: 1. Squamous cell carcinoma, poorly differentiated, unknown primary, currently undergoing immunotherapy and possible chemotherapy 2. Hyperlipidemia 3. Peripheral vascular disease, status post endarterectomy 4. CVA without residual defect 5. Hypertension 6. Depression 7. Lumbar radiculopathy 8. Gout 9. Impaired glucose tolerance Allergies: Penicillin, lisinopril, prednisone Past surgical history 1. [place] with BSO secondary to tubal an infection at age 29 2. Left carotid endarterectomy, December 14, 2020 3. 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 Health related behavior No tobacco and never has been a smoker No consistent alcohol Fairly active Patient History Medical History Elevated cholesterol FH: carotid endarterectomy Hepatic steatosis Hypertension Night sweats Swollen lymph nodes TIA (transient ischemic attack) Surgical History History of hysterectomy Family & Social History Social History: household members spouse Prior Living Arrangements House Safety & Behavioral: Feels Safe in Current Yes Environment Been Physically Hurt or No Threatened By a Person Tobacco & Substance use: Smoking Status Never smoker alcohol intake never alcohol intake frequency a few times a week Substance Use Type does not use Meds Home Medications and Allergies Home Medications Medication Instructions Recorded Confirmed Type amlodipine 10 mg tablet 1 tab PO QPM #0 09/21/17 11/08/21 History losartan 25 mg tablet 50 mg PO QAM 12/10/20 11/08/21 History rosuvastatin 10 mg tablet 40 mg PO BEDTIME 12/10/20 11/08/21 History ondansetron HCl 4 mg tablet 4 mg PO Q6H PRN #30 tab 07/07/21 11/08/21 Rx aspirin 81 mg tablet,delayed 81 mg PO DAILY 08/01/21 11/08/21 History release lidocaine-prilocaine 2.5 %-2.5 % 1 applic TOPICAL PRN PRN #30 g 08/23/21 11/08/21 Rx topical cream lactulose 10 gram/15 mL oral 10 g (15 mL) PO DAILY PRN 30 Days 11/07/21 11/08/21 Rx solution #250 ml prochlorperazine maleate 10 mg 10 mg PO Q6H PRN #20 tab 11/07/21 11/08/21 Rx tablet (Compazine) metoprolol tartrate 50 mg tablet 50 mg PO BID 11/08/21 11/08/21 History oxycodone-acetaminophen 5 mg-325 1 tab PO Q6H PRN 11/08/21 11/08/21 History mg tablet Allergies Allergy/AdvReac Type Severity Reaction Status Date / Time Penicillins Allergy Mild Rash Verified 11/08/21 15:22 Review of Systems Review of Systems Narrative: Patient has been receiving immunotherapy and received her last dose on SundayNovember 01, tecentriq Patient has been having increasing abdominal pain thought to be related to metastases in the pelvis and abdomen. She has been taking oxycodone. She developed severe vomiting with morphine. She declined chemotherapy on the because she was feeling poorly and was choosing quality. She has not had fever chills She has not had any hematemesis or bloody stool. She did have diarrhea last night. That was her last bowel movement. She has not been able to eat much. She has been very lethargic. Twelve point review of systems otherwise negative Exam Vital Signs (past 8 hours): - 11/08/21 10:40 11/08/21 17:39 Temperature 98.1 F 99.3 F Pulse Rate 94 H Respiratory Rate 17 Blood Pressure 139/65 Pulse Oximetry 95 Oxygen Delivery Method Room Air Oxygen Flow Rate 2 Narrative Exam Narrative: Patient is afebrile, heart rate 100, blood pressure stable and O2 sats in the low 90s on 1 L nasal cannula oxygen No evidence of tachypnea. Patient is breathing freely. Patient is currently pain-free. Patient appears chronically ill but in no acute distress HEENT is remarkable for moist mucous membranes Neck: Supple without masses, unchanged clavicular node Chest: Bibasilar crackles but no wheezes rhonchi Cor: Regular rate and rhythm distant S1, S2 Abdomen: Bowel so sounds absent. She has tenderness diffusely but no guarding or rebound. She has tenderness right lower quadrant most significantly Extremities: No significant edema, pulses intact Neurologic exam is nonfocal Skin no rashes Objective Labs Result Diagrams: 11/08/21 07:40 11/08/21 07:40 Labs: Laboratory Results - last 24 hr 11/07/21 11/07/21 11/07/21 22:15 22:15 22:15 WBC 5.5 RBC 3.86 L Hgb 10.4 L Hct 32.0 L MCV 82.9 MCH 26.8 MCHC 32.4 RDW 16.2 H Plt Count 338 Neut % (Auto) 68.6 Lymph % (Auto) 10.1 L Rosebud % (Auto) 21.0 H Eos % (Auto) 0.1 L Baso % (Auto) 0.2 Neut # (Auto) 3800 Lymph # (Auto) 600 L [place] # (Auto) 1200 H Eos # (Auto) 0 Baso # (Auto) 0 Total Counted Seg Neutrophils % Band Neutrophils % Lymphocytes % (Manual) Monocytes % (Manual) Metamyelocytes % Neutrophils # (Manual) RBC Morphology Anisocytosis ABG pH ABG pCO2 ABG pO2 ABG HCO3 ABG Total CO2 ABG O2 Saturation ABG Base Excess FiO2 Sodium 135 L Potassium 3.8 Chloride 96 L Carbon Dioxide 26 BUN 15 Creatinine 1.04 Estimated GFR 56 L BUN/Creatinine Ratio 14.4 Glucose 140 H Lactate 2.2 H Calcium 11.4 H Total Bilirubin 1.1 AST 36 ALT 16 Alkaline Phosphatase 178 H Total Protein 6.9 Albumin 3.6 Globulin 3.3 Albumin/Globulin Ratio 1.1 Nasal Screen MRSA (PCR) SARS-CoV-2 (PCR) 11/08/21 11/08/21 11/08/21 00:30 04:56 06:46 WBC RBC Hgb Hct MCV MCH MCHC RDW Plt Count Neut % (Auto) Lymph % (Auto) Rosebud % (Auto) Eos % (Auto) Baso % (Auto) Neut # (Auto) Lymph # (Auto) Rosebud # (Auto) Eos # (Auto) Baso # (Auto) Total Counted Seg Neutrophils % Band Neutrophils % Lymphocytes % (Manual) Monocytes % (Manual) Metamyelocytes % Neutrophils # (Manual) RBC Morphology Anisocytosis ABG pH 7.42 ABG pCO2 35.2 ABG pO2 51 L ABG HCO3 23 ABG Total CO2 24 ABG O2 Saturation 87 L ABG Base Excess -2.0 FiO2 21 Sodium Potassium Chloride Carbon Dioxide BUN Creatinine Estimated GFR BUN/Creatinine Ratio Glucose Lactate 2.0 Calcium Total Bilirubin AST ALT Alkaline Phosphatase Total Protein Albumin Globulin Albumin/Globulin Ratio Nasal Screen MRSA (PCR) SARS-CoV-2 (PCR) Negative 11/08/21 11/08/21 11/08/21 07:40 07:40 09:22 WBC 4.9 RBC 3.44 L Hgb 9.4 L Hct 28.2 L MCV 82.0 MCH 27.4 MCHC 33.4 RDW 15.8 H Plt Count 285 Neut % (Auto) Not Reportable Lymph % (Auto) Not Reportable Rosebud % (Auto) Not Reportable Eos % (Auto) Not Reportable Baso % (Auto) Not Reportable Neut # (Auto) Lymph # (Auto) Not Reportable [place] # (Auto) Not Reportable Eos # (Auto) Baso # (Auto) Not Reportable Total Counted 100 Seg Neutrophils % 42.0 Band Neutrophils % 20.0 H Lymphocytes % (Manual) 22.0 L Monocytes % (Manual) 14.0 H Metamyelocytes % 2.0 H Neutrophils # (Manual) 3038 RBC Morphology See below Anisocytosis 1+ H ABG pH ABG pCO2 ABG pO2 ABG HCO3 ABG Total CO2 ABG O2 Saturation ABG Base Excess FiO2 Sodium 135 L Potassium 4.1 Chloride 99 Carbon Dioxide 28 BUN 17 Creatinine 1.06 H Estimated GFR 55 L BUN/Creatinine Ratio 16.0 Glucose 157 H Lactate Calcium 10.2 Total Bilirubin 0.9 AST 33 ALT 14 Alkaline Phosphatase 136 H Total Protein 5.9 L Albumin 3.1 L Globulin 2.8 Albumin/Globulin Ratio 1.1 Nasal Screen MRSA (PCR) Negative for mrsa SARS-CoV-2 (PCR) Assessment & Plan Assessment & Plan narrative: 75-year-old female admitted for bowel obstruction Assessment 1. Bowel obstruction Plan: Will continue with NG tube and NPO. General surgery has been consulted. Will provide IV fluids. Assessment 2. Squamous cell carcinoma of unknown primary, metastatic Plan: Certainly this may be contributing to her symptoms. We will continue with pain control. Assessment 3. History of CVA with peripheral vascular disease and history of carotid endarterectomy without current problems Plan: Will continue outpatient medications when she is taking oral medications Assessment number for hypertension Plan: Will hold blood pressure medications in show she is taking p.o.. Will monitor blood pressure which is well controlled now. Assessment 5. DVT prophylaxis Plan: Lovenox Assessment 6. Degenerative joint disease with radiculopathy Plan: No current problems. Will continue with pain management Assessment 7. Hypoxemia Plan: No evidence of infection. Blood cultures and urine culture pending. Provide supplemental oxygen and consult RT. Certainly could be related to pleural effusions from cancer or from pain or from the pain medication. We will continue to monitor and workup further if this persists. Code status DNR Time Spent With Patient Critical Care time: I spent a total of [] minutes of critical care time on this patient's care today; this time is exclusive of procedural time.
[2021-11-08] MEDS: SODIUM CHLORIDE 0.9% 1,000 ML 75 ML IV (17:50)
[2021-11-08] MEDS: METOPROLOL ER 50 MG TABLET PO (21:08)
[2021-11-08 23:03] LABS: Appearance Urine UA CLEAR; Bilirubin Urine UA NEGATIVE (NEGATIVE); Color Urine UA YELLOW; Glucose Urine UA NEGATIVE (Negative); Ketones Urine UA NEGATIVE (NEGATIVE); Leukocyte Esterase Urine UA NEGATIVE (NEGATIVE); Nitrite Urine UA NEGATIVE (Negative); Occult Blood Urine UA 3+ (Negative); Protein Urine UA 2+ (Negative); Specific Gravity Urine UA >=1.030 (1.000-1.035); Urobilinogen Urine UA 0.2 E.U./dL (0.2)
[2021-11-08] MEDS: ACETAMINOPHEN 325 MG TABLET 975 MG PO (23:11)
[2021-11-09] VITALS (7 sets, daily range): BP systolic 113–158; BP diastolic 61–77; PULSE 73–99; RESP 16–17; TEMP 36.6–37.2; O2SAT 92–96
[2021-11-09 00:42] LABS: Amorphous Sediment Urine 2+; Bacteria Urine None Seen; Culture Indicated Urine Cult Not Indicated; Granular Casts Urine 1-5/LPF; RBC Urine 1-5/HPF (0-5/HPF); WBC Urine 1-5/HPF (0-5/HPF)
[2021-11-09] MEDS: SODIUM CHLORIDE 0.9% 1,000 ML 75 ML IV (06:52)
--- NOTE | 2021-11-09 07:31 | PC.NURSE ---
End of shift note. Care of patient from [id number]. Patient slept well during the night. Is AAOX3, good pain control with tylenol. Patient declined offer for percocet. Up to BR with SBA. Had one loose BM.
[2021-11-09] MEDS: METOPROLOL ER 50 MG TABLET PO ×2 (08:30→22:13)
[2021-11-09] MEDS: ACETAMINOPHEN 325 MG TABLET 650 MG PO ×2 (08:33→16:59)
[2021-11-09] MEDS: ENOXAPARIN 40 MG/0.4 ML SYRINGE SUBCUT (10:00)
--- NOTE | 2021-11-09 12:12 | DIET.CONS ---
Dietary Consultation Note Admission Date: 11/08/2021 03:25 Assessment: 75y F admitted c metastatic squamous cell carcinoma complications with SBO referred to nutrition for MNA 10 (malnourished). Met c pt and spouse bedside, pt c troubles eating solid foods x1mo c associated unintentional weight loss of 14% in 1 mo (severe). 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 Pt distressed she is not tolerating solids besides fish. At home started making smoothies once daily: pea protein, coconut water, frozen fruit, non-fat yogurt as primary PO. Pt currently on clear liquid diet, tolerating c no s/sx N/V. Eager for full liquid diet order so she can have smoothies. Pt with +BM last evening. Per imaging: Increased omental caking, ascites, and peritoneal thickening and enhancement consistent with progression of peritoneal carcinomatosis. Ht: 149.86 cm Wt: 61.8 kg BMI: 27.5 UBW: 70-75kg x5y Last BM: 11/09/21 (11/09/21 03:00) MNA: 10 Madan Score: 20 Diet: 11/08/21 Breakfast Clear Liquid Diet Diet Modifications: Nutrition Percent Meal Consumed 25% 11/09/21 08:00 Labs: RBC 3.44 X10^6/uL (4.0-5.2) L 11/08/21 07:40 Hgb 9.4 g/dL (12.0-16.0) L 11/08/21 07:40 Hct 28.2 % (36-46) L 11/08/21 07:40 Creatinine 1.06 mg/dL (0.52-1.04) H 11/08/21 07:40 Lactate 2.0 mmol/L (0.7-2.1) 11/08/21 00:30 Nutrition Diagnosis: Severe Acute Protein Calorie Malnutrition r/t poor tolerance to solid PO diet, metastatic disease aeb 14% unintentional weight loss in 1mo (severe), pt c metastatic squamous cell carcinoma c some response to immunotherapy on imaging, pt c poor POs x1mo relying on mostly liquid diet. Interventions: 1. Provided education to pt and spouse on high kcal/high pro nutrition therapy. Modified pts home smoothie to include full fat yogurt in place of NF to support kcal needs and severe acute weight loss. Reinforced pts desire to eat and tolerance to some fish. Educated pt on fully chewing each bite of solid food into puree before swallowing. 2. Recc advancing pt to full liquid diet secondary to malnourished state as pt tolerates smoothies well. EER: 1550kcals (25kcal/kg overweight PCM), 75-85g PRO (1.2-1.5g/kg per PCM) Monitoring/Evaluations: POs, diet advancement Electronically Signed by: Paloma Gomez 11/09/21 12:12 Clinical Dietitian [address] [id number]
--- NOTE | 2021-11-09 12:40 | CM.DANOTE ---
Patient is a 75 yo female who was admitted on 11/08/21 for Pain management issues. Pt has [facility] for insurance and her PCP is Dr. Kathy Cruz. EMR was reviewed. Per MD, pt with a recent dx of CA from clavicle mass and now appears to have mets to liver, lymph, pelvis. Pt admitted with likely SBO and PEs. NGT placed with moderate output. Per Surgeon, pt being treated conservatively and had small bm and NGT d/c'd and advanced to clear liquids and to see how tolerates advancing diet. Per Rug Clipper, pt has lost 14 % body weight in one month unintentionally which is considered severe weight loss and provided some education and recommendations bedside with pt. Per Onc Patient Sreekanth, Pt is not very compliant with medication and tx recommendations as pt's CA is fairly aggressive and recommendation is chemo but pt does not want to have hair loss and has not taken recommended dose of pain medication or mentioned significant constipation until about 8-10 days from having bm. Dr. Baker aware pt admitted and will see pt in the outpt setting and not bedside in the hospital. 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 Pt prefers to maintain independence for as long as possible and continue to pursue tx with Oncology and they deny any current d/c needs. Plan: SW to follow closely to determine if pt can tolerate advancing diet towards plan of home at discharge with ongoing outpt [facility] with Dr. Baker. LAZARO [employer] Discharge Planning/Care Management CM Discharge Assessment Start: 11/09/21 12:32 Freq: Status: Active Protocol: Document 11/09/21 12:34 BF (Rec: 11/09/21 12:40 BF [id number]) Discharge Planning Assessment Assigned Civil Engineer'S Aide LAZARO Mcadams DPOA/Assigned Designee Name spouse Advance Directives? No Advance Directives on File No History Provided By Patient,Significant Other, Medical Record Has Patient been admitted in last 30 No days? Prior Living Arrangements House Household Members spouse Type of transporation used prior to Relies on Others admit Independent with ADL's Yes Is patient alert and oriented? Yes Caregiver for Another No Community Services used prior to IV Therapy admission: Comment Onc immunotherapy at baseline, recommendation is Chemo Barriers to Discharge No Discharge Plan Home Community Services IV Therapy Transportation Arrangement Spouse has been bedside off and on and can transport at d/ c Referrals Initiated None needed Additional Comment Established at [facility] with Oncologist Dr. Baker Review Status In Process Please Provide Date Initial DC 11/09/21 Assessment Was Performed Next Review Type Continued Stay Review
--- NOTE | 2021-11-09 13:59 | P.PN_ITS ---
Subjective Subjective Date Patient Seen: 11/09/21 Time Patient Seen: 14:00 Interval history: Patient has tolerated clear liquids but does not find them very palatable. She is still having liquid diarrhea. She is hungry. She is not having nausea or vomiting. She has the same amount abdominal pain she has had. She again expresses that she is tired of hurting and that she does not want to do chemotherapy and she feels very sure of that. She wonders if it is worth continuing immunotherapy and states that she will consider continuing that for short time to see if it takes effect. Patient denies any shortness of breath or chest pain 12 point review of systems otherwise negative Exam Vital Signs (past 8 hours): - 11/09/21 08:00 11/09/21 09:58 Temperature 97.9 F Pulse Rate 81 Respiratory Rate 16 Blood Pressure 122/65 122/65 Pulse Oximetry 92 Oxygen Delivery Method Room Air Oxygen Flow Rate 0 Narrative Exam Narrative: Patient is a little less pale today. Appears in no apparent distress sitting upright in bedside chair but does appear in mild pain O2 sats are in the low 90s on room air. Otherwise vital signs are stable HEENT is unremarkable Neck: Supple Chest: Clear to auscultation without wheezes rhonchi or crackles Cor: Regular rate and rhythm without a murmur Abdomen: Positive bowel sounds, soft but diffuse tenderness right lower quadrant bilateral upper quadrant. No guarding. No rebound Extremities: No edema Objective Labs Result Diagrams: 11/08/21 07:40 11/08/21 07:40 Labs: Laboratory Results - last 24 hr 11/08/21 22:50 Urine Color Yellow Urine Appearance Clear Urine pH 5.0 Ur Specific [place] >=1.030 H Urine Protein 2+ H Urine Glucose (UA) Negative Urine Ketones Negative Urine Occult Blood 3+ H Urine Nitrate Negative Urine Bilirubin Negative Urine Urobilinogen 0.2 Ur Leukocyte Esterase Negative Urine RBC 1-5/hpf Urine WBC 1-5/hpf Amorphous Sediment 2+ Urine Bacteria None seen Granular Casts 1-5/lpf Ur Culture Indicated? Cult not indicated PFSH Medical History Elevated cholesterol FH: carotid endarterectomy Hepatic steatosis Hypertension Night sweats Swollen lymph nodes TIA (transient ischemic attack) Surgical History History of hysterectomy Social History household members: spouse Smoking Status: Never smoker alcohol intake: never Assessment & Plan Assessment & Plan narrative: 75-year-old female admitted with a bowel obstruction improved Assessment 1. Bowel obstruction of unclear etiology improved with NG tube and bowel rest. Suspect in part this was related to reaction to the morphine. Appreciate surgery consult. Will advanced to full liquids and advance as tolerated and anticipate discharge in a.m.. Assessment 2. 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 Patient's abdomen she does not want to proceed with chemotherapy and has had 5 rounds of immunotherapy is unclear if this is been effective. We will consult hospice for information. We will treat pain. They will make an appoint with Dr. Amador upon discharge. Assessment 3. Hypertension. Well controlled at this time. Patient is only on metoprolol. We will continue the same dose. Assessment 4. Previous history of CVA without current symptoms Plan: Continue outpatient risk reduction Assessment 5. DVT prophylaxis Plan: Continue with Lovenox Assessment 6. Hypoxemia resolved unclear if this was related to pain medications or atelectasis Plan: Will continue to follow 50 minutes is spent with patient and discussing with patient and nursing staff and reviewing chart and formulating a plan Time Spent With Patient Critical Care time: I spent a total of [] minutes of critical care time on this patient's care today; this time is exclusive of procedural time.
[2021-11-09 14:30] LABS: Add Manual Diff / Slide Review NO; Basophils Absolute Auto 0 /uL (0-100); Basophils Percent Auto 0.3 % (0-2); Eosinophils Absolute Auto 100 /uL (0-450); Eosinophils Percent Auto 1.2 % (2-4); Hematocrit 31.4 % (36-46); Hemoglobin 10.2 g/dL (12.0-16.0); Lymphocytes Absolute Auto 900 /uL (1100-4500); Lymphocytes Percent Auto 12.6 % (25-40); Mean Corpuscular HGB Conc 32.5 % (30-36); Mean Corpuscular Hemoglobin 26.8 PG (26-34); Mean Corpuscular Volume 82.6 fL (80-100); Monocytes Absolute Auto 900 /uL (0-900); Monocytes Percent Auto 13.8 % (3-14); Neutrophils Absolute Auto 4900 /uL (1500-7000); Neutrophils Percent Auto 72.1 % (50-75); Platelet Count 357 X10^3/uL (150-400); Red Cell Distribution Width 16.3 % (11.6-14.8); White Blood Cell Count 6.8 X10^3/uL (4.5-11.0)
[2021-11-09 14:36] LABS: BUN Creatinine Ratio 21.7 (6-22); Blood Urea Nitrogen 20 mg/dL (7-17); Calcium 11.3 mg/dL (8.4-10.2); Carbon Dioxide 30 mmol/L (22-32); Chloride 100 mmol/L (98-107); Estimated Glomerular Filt Rate > 60 mL/min (>60); Glucose 121 mg/dL (80-110); HEMOLYSIS < 15 (0-50); Potassium 3.4 mmol/L (3.4-5.1); Sodium 136 mmol/L (137-145)
[2021-11-09] MEDS: POTASSIUM CHLORIDE 20 MEQ/15 ML UDC 40 MEQ PO (17:03)
[2021-11-09] MEDS: fentaNYL 12 MCG/PATCH TOP (17:04)
[2021-11-09] MEDS: ONDANSETRON 4 MG/2 ML INJ IV (20:15)
[2021-11-09] MEDS: PANTOPRAZOLE 40 MG VIAL IV (22:13)
[2021-11-09] MEDS: CALCIUM CARBONATE 500 MG TAB PO (23:01)
[2021-11-10 04:00] VITALS: BP 147/70; PULSE 84; RESP 15; TEMP 36.8; O2SAT 91
[2021-11-10 05:39] LABS: Add Manual Diff / Slide Review NO; Basophils Absolute Auto 0 /uL (0-100); Basophils Percent Auto 0.1 % (0-2); Eosinophils Absolute Auto 100 /uL (0-450); Eosinophils Percent Auto 1.2 % (2-4); Hematocrit 29.4 % (36-46); Hemoglobin 9.6 g/dL (12.0-16.0); Lymphocytes Absolute Auto 1200 /uL (1100-4500); Lymphocytes Percent Auto 15.4 % (25-40); Mean Corpuscular HGB Conc 32.5 % (30-36); Mean Corpuscular Hemoglobin 26.5 PG (26-34); Mean Corpuscular Volume 81.6 fL (80-100); Monocytes Absolute Auto 1000 /uL (0-900); Monocytes Percent Auto 13.2 % (3-14); Neutrophils Absolute Auto 5300 /uL (1500-7000); Neutrophils Percent Auto 70.1 % (50-75); Platelet Count 332 X10^3/uL (150-400); White Blood Cell Count 7.5 X10^3/uL (4.5-11.0)
[2021-11-10 05:41] LABS: Alanine Aminotransferase 14 IU/L (<35); Albumin Globulin Ratio 1.1 (1.0-2.8); Alkaline Phosphatase 162 U/L (38-126); Aspartate Aminotransferase 33 IU/L (14-36); BUN Creatinine Ratio 22.5 (6-22); Bilirubin Total 0.6 mg/dL (0.2-1.3); Blood Urea Nitrogen 20 mg/dL (7-17); Calcium 11.1 mg/dL (8.4-10.2); Carbon Dioxide 30 mmol/L (22-32); Chloride 100 mmol/L (98-107); Estimated Glomerular Filt Rate > 60 mL/min (>60); Globulin 2.8 g/dL (1.7-4.1); Glucose 100 mg/dL (80-110); HEMOLYSIS < 15 (0-50); Potassium 3.5 mmol/L (3.4-5.1); Sodium 135 mmol/L (137-145); Total Protein 5.8 g/dL (6.3-8.2)
[2021-11-10 09:10] VITALS: BP 147/70; PULSE 81; RESP 16; TEMP 36.3; O2SAT 94
[2021-11-10] MEDS: ENOXAPARIN 40 MG/0.4 ML SYRINGE SUBCUT (09:22)
[2021-11-10] MEDS: PANTOPRAZOLE 40 MG VIAL IV (09:22)
[2021-11-10] MEDS: METOPROLOL ER 50 MG TABLET PO ×2 (09:22→20:54)
--- NOTE | 2021-11-10 09:31 | PC.NURSE ---
Addendum entered by Indy Johnson R.N. 11/10/21 14:35: PT TEARFUL WHEN SPOUSE LEFT ROOM- REALIZING SHE IS QUITE SICK AND PROBABLY WON'T BEAT THIS CANCER - SHE TOLD HIM THAT THEY NEED TO TALK SERIOUS THIS RN ENCOURAGED HER TO VOICE HER FEELINGS AND SAT WITH HER FOR PERIOD OF TIME- MEDICATED FOR NAUSEA PREEMPTIVELY PRIOR TO PO GASTROGRAFFIN ADMINISTRATION FOR ORDERED SBFT Original Note: pt did not tolerate fruit smoothie yesterday and is nervous to become nauseated again have emesis- she did tolerate a popsicle this am without difficulty and actually reported it tasted/felt good. Spouse assists in room to bathroom and to chair etc. denied discomfort this am and pt actually forget that she had duragesic patch on- she is tolerating.
--- NOTE | 2021-11-10 10:21 | DIET.CONS ---
Dietary Consultation Note Admission Date: 11/08/2021 03:25 Pt reports emesis following yogurt smoothie yesterday, fearful to have further N/V. Pt refused breakfast this am. Sending ONS Samuel slushie and broth for lunch today as pt tolerated Popsicle per nursing. following for PO tolerance. Electronically Signed by: Paloma Gomez 11/10/21 10:21 Clinical Dietitian [address] [id number]
--- NOTE | 2021-11-10 13:13 | CM.DPNOTE ---
Faxed referral to [facility] per [facility] and received fax conf. Mary Che CM Assist.
--- NOTE | 2021-11-10 13:54 | DI.RAD.S_ITS ---
PROCEDURE: FL SMALL BOWEL FOLLOW THROUGH INDICATIONS: small bowel obstruction. Perform with gastrografin COMPARISON: None. FINDINGS: Small bowel: There is normal transit time of barium through the small bowel. Small bowel loops are of normal caliber throughout. Mucosal folds are smooth and of normal thickness. No strictures, intraluminal masses, or extrinsic mass effects are noted. The terminal ileum is identified, and is normal in morphology. IMPRESSION: Normal small bowel follow-through with Gastrografin Approved by: Viktor Doty M.D. on 11/10/2021 at 17:10
[2021-11-10] MEDS: ONDANSETRON 4 MG/2 ML INJ IV (14:32)
[2021-11-10 17:00] VITALS: BP 138/75; PULSE 90; RESP 19; TEMP 36.7; O2SAT 94
--- NOTE | 2021-11-10 18:06 | P.PN_ITS ---
Subjective Subjective Date Patient Seen: 11/10/21 Time Patient Seen: 13:00 Interval history: Patient seen 2 separate times once alone once with her . Discussed with Dr. Clemente from surgery as well as Dr. Amador from Oncology Patient had 200 cc of a protein shake last night with significant emesis after. She continues to take clear fluids but is unable to take anything more. She continues to have diarrhea but denies nausea or vomiting. She is not having any pain right now. Duragesic patch is in place at 12 mg and she seems more relaxed and at ease. She denies any or blood in her stools. She denies any shortness of breath or chest pain. She is no longer requiring any oxygen 12 point review of systems is otherwise unremarkable Exam Vital Signs (past 8 hours): Oxygen Delivery Method Room Air Oxygen Flow Rate 0 Narrative Exam Narrative: O2 sats are normal on room air. Vital signs are stable including normal blood pressure Patient's color is improved today and her face is more relaxed. HEENT shows mucous membranes moist and pink Neck is supple Chest: Clear to auscultation without wheezes rhonchi or crackles Cor: Regular rate and rhythm without any murmur Abdomen: Positive bowel sounds, diffusely tender probably more so today. No distension no guarding no rebound Extremities no edema pulses intact Neurologic exam nonfocal Objective Labs Result Diagrams: 11/10/21 04:05 11/10/21 04:05 Labs: Laboratory Results - last 24 hr 11/10/21 11/10/21 04:05 04:05 WBC 7.5 RBC 3.60 L Hgb 9.6 L Hct 29.4 L MCV 81.6 MCH 26.5 MCHC 32.5 RDW 16.0 H Plt Count 332 Neut % (Auto) 70.1 Lymph % (Auto) 15.4 L [place] % (Auto) 13.2 Eos % (Auto) 1.2 L Baso % (Auto) 0.1 Neut # (Auto) 5300 Lymph # (Auto) 1200 [place] # (Auto) 1000 H Eos # (Auto) 100 Baso # (Auto) 0 Sodium 135 L Potassium 3.5 Chloride 100 Carbon Dioxide 30 BUN 20 H Creatinine 0.89 Estimated GFR > 60 BUN/Creatinine Ratio 22.5 H Glucose 100 Calcium 11.1 H Total Bilirubin 0.6 AST 33 ALT 14 Alkaline Phosphatase 162 H Total Protein 5.8 L Albumin 3.0 L Globulin 2.8 Albumin/Globulin Ratio 1.1 [facility] Medical History Elevated cholesterol FH: carotid endarterectomy Hepatic steatosis Hypertension Night sweats Swollen lymph nodes TIA (transient ischemic attack) Surgical History History of hysterectomy Social History household members: spouse Smoking Status: Never smoker alcohol intake: never Assessment & Plan Assessment & Plan narrative: 75-year-old female with 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 Assessment 1. Bowel obstruction Discussed with Dr. Giordano. Unclear if this is related to the cancer and omental cake. We will do a small-bowel follow-through. If there is no evidence of obstruction will send home tomorrow on clear liquids and advance if tolerated an d continue with pain medications with Duragesic, oral dilaudid although she has not taken any and lorazepam as needed. Assessment 2. Hypertension appears well controlled just on the metoprolol Plan: Will continue the same Assessment 3. Metastatic squamous cell carcinoma. Discussed the case with Dr. Amador who is patient's primary oncologist. He fell CT represents progression of disease and she has had 5 treatments of immunotherapy which we should have seen be effective. Her really only option is chemotherapy which she has not been interested in. I discussed this with her as well. At this point I think she is not well enough to undergo chemotherapy but the plan would be if there is no obvious evidence of a bowel obstruction on her small-bowel follow-through then we would send her home with follow-up with Dr. Amador on Sunday and me on . She has an appointment with hospice or consult pending. In the meantime we will continue the Duragesic patch and use dilaudid as needed and lorazepam as needed. Assessment 4. History of CVA Plan: Continue with risk reduction. No acute issues 65 minutes spent with patient today on 2 separate occasions and in discussing with physicians and formulating a plan. Time Spent With Patient Critical Care time: I spent a total of [] minutes of critical care time on this patient's care today; this time is exclusive of procedural time.
[2021-11-10 20:20] VITALS: BP 151/76; PULSE 89; RESP 16; TEMP 36.3; O2SAT 94
[2021-11-10 20:54] VITALS: BP 151/76
[2021-11-10 21:28] VITALS: PULSE 94
[2021-11-11 04:00] VITALS: BP 139/77; PULSE 83; RESP 16; TEMP 36.1; O2SAT 94
[2021-11-11 08:31] VITALS: BP 157/76
[2021-11-11] MEDS: METOPROLOL ER 50 MG TABLET PO (08:31)
[2021-11-11] MEDS: ENOXAPARIN 40 MG/0.4 ML SYRINGE SUBCUT (08:31)
[2021-11-11] MEDS: PANTOPRAZOLE 40 MG VIAL IV (08:31)
--- NOTE | 2021-11-11 08:37 | PC.NURSE ---
Addendum entered by Araceli Mccormick R.N. 11/11/21 10:28: Noticed IV Ativan on DC without IV access. Call into Dr Franklin who will correct with [facility] [place]. 10:29am Addendum entered by Araceli Mccormick R.N. 11/11/21 10:22: Order for DC written, reviewed follow up appt and new medications at home. All questions reviewed with Pt and spouse and PIV removed for DC. Plan to follow up with Hospice as outpatient to stay at home during next months. WC to private vehicle. Pt and spouse appreciative of care. Original Note: Am shift Pt reports feeling improved since admit, passing BM and flatus this AM. No nausea reported. Clear liquids at breakfast. Declined SCDs, as Pt is independ in room RA CTA. Using call light as needed and looking forward to DC home today.
[2021-11-11 08:41] VITALS: BP 157/79; PULSE 74; RESP 16; TEMP 36.6; O2SAT 100
--- NOTE | 2021-11-11 09:00 | PM.DS.1 ---
History of Present Illness History of Present Illness Date Patient Seen: 11/11/21 Time Patient Seen: 08:50 Chief complaint: Cancer complication and pain medication Narrative: small bowel follow through was negative pt feeling wellt his morning eating and eliminating feeling ok ready to go home Discharge Providers Provider Date of admission: 11/08/21 03:25 Discharge Date: 11/11/21 Primary care physician: Kathy Cruz MD Consults: 11/08/21 09:00 Consult to Physician Routine Comment: Consulting Provider: Jose R Clemente Reason for consultation: bowel obstruction Has provider been notified: Yes 11/08/21 09:10 Consult to General Surgery Urgent Comment: Consulting Provider: Jose R Clemente Reason for consultation: High grade bowel obstruction Has provider been notified: Yes 11/08/21 09:44 Consult to Dietitian, Adult Routine Comment: Reason For Exam: little appetite 11/08/21 17:35 Consult to Respiratory Therapy Evaluate & Treat Comment: Physician Instructions: Evaluate and treat 11/09/21 13:57 Consult to Hospice Referral Routine Comment: Discharge provider: Davis Franklin MD Summary Hospital Course Discharge Diagnosis: bowel obstruction acute hypertension metastatic squamous cell carcinoma history of CVA Hospital Course: Ms. Carmen was admitted for management of bowel obstruction which resolved with NPO and monitoring without requiring intervention. Her metastatic cancer is advancing and she is reaching the limits of treatment she is interested in pursuing. A small bowel followthrough study was conducted which established normal throughput and she was able to resume eating with resolution of abdominal pain. On discussion with family and patient it was decided she would be going home to establish care with hospice. Status at Discharge Overall status at discharge: patient is not back to baseline Exam Vital Signs (past 8 hours): - 11/11/21 04:00 11/11/21 08:31 11/11/21 08:41 Temperature 96.9 F L 97.8 F Pulse Rate 83 74 Respiratory Rate 16 16 Blood Pressure 139/77 157/76 H 157/79 H Pulse Oximetry 94 100 Oxygen Flow Rate 0 0 Oxygen Delivery Method Room Air Oxygen Flow Rate 0 Narrative Exam Narrative: laying in bed cheerful with family at bedside HENMT Head: normocephalic and atraumatic Resp Other: moving air well clear to auscultation bilaterally Cardio Other: regular rate and rhythm S1/S2 GI Palpation: soft Auscultation: normal bowel sounds Other: nontender Extrem General: full ROM and no pedal edema Psych Appearance: grossly normal Mental Status: mental status grossly normal Objective Labs Result Diagrams: 11/10/21 04:05 11/10/21 04:05 [facility] Medical History Elevated cholesterol FH: carotid endarterectomy Hepatic steatosis Hypertension Night sweats Swollen lymph nodes TIA (transient ischemic attack) Surgical History History of hysterectomy Social History household members: spouse Smoking Status: Never smoker alcohol intake: never Discharge Assessment & Plan Assessment and Plan Assessment: 75-year-old female with 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 Clemente.? Unclear if this is related to the cancer and omental cake.? small bowel follow through was negative so we will send home on clear liquids/ADAT and continue with pain medications with Duragesic, oral dilaudid and lorazepam as needed. #Hypertension continue home metoprolol #Metastatic squamous cell carcinoma.? Case discussed with Dr. Amador who is patient's primary oncologist.? He felt CT represents progression of disease and she has had 5 treatments of immunotherapy after which we should have seen efficacy if it were going to present itself.? Her really only option is chemotherapy which she has not been interested in, discussed this with her as well.? At this point Dr. Cruz thinks she is not well enough to undergo chemotherapy but as there is no obvious evidence of a bowel obstruction on her small-bowel follow-through then we will send her home with follow-up with Dr. Amador on Sunday and Dr Cruz on .? She has an appointment with hospice consult pending.? In the meantime we will continue the Duragesic patch and use dilaudid as needed and lorazepam as needed. #History of CVA Continue with risk reduction.? No acute issues Dispo: home to est w/ hospice diet: clears ADAT Discharge Plan Discharge Plan Patient Disposition: Home Nursing Discharge Comment: Please keep your follow up appointments this week with Dr Cruz and Oncology. Stay comfortable, and call with questions or concerns. It has been a pleasure to care for you, stay well -Araceli Discharge orders & Medications Prescriptions: New metoprolol succinate 50 mg Tablet Extended Release 24 Hr 50 mg PO BID Qty: 30 1RF hydromorphone 2 mg Tablet 2 mg PO Q4HR PRN (Reason: Pain, Severe (7-10)) Qty: 30 0RF lorazepam 2 mg/mL Syringe 0.5 mg IV Q2HR PRN (Reason: Anxiety) Qty: 30 0RF fentanyl 12 mcg/hr Patch 72 Hour 12 mcg topical Q72H Qty: 20 0RF Continued amlodipine 10 MG tablet 1 tab PO QPM Qty: 0 ondansetron HCl 4 mg Tablet 4 mg PO Q6H PRN (Reason: Nausea) Qty: 30 0RF Rx Instructions: Take one pill by mouth every 6 hours as needed for nausea lidocaine-prilocaine 2.5-2.5 % Cream 1 applic topical PRN PRN (Reason: Pain At Injection Site) Qty: 30 0RF Rx Instructions: Apply to the skin over the port at least 2 hours before planned use of the port. Cover the cream with a small amount of plastic wrap and leave in place until the port is accessed. lactulose 10 gram/15 mL Solution 10 g PO DAILY PRN (Reason: Constipation) 30 Days Qty: 250 0RF Rx Instructions: take 15ml by mouth every day as needed. if No results, take a second 15ml later in the day prochlorperazine maleate [Compazine] 10 mg Tablet 10 mg PO Q6H PRN (Reason: Nausea) Qty: 20 0RF Rx Instructions: take one tablet by mouth as needed for nausea aspirin 81 mg Tablet,Delayed Release (Dr/Ec) 81 mg PO DAILY metoprolol tartrate 50 mg tablet 50 mg PO BID rosuvastatin 10 mg tablet 40 mg PO BEDTIME losartan 25 mg tablet 50 mg PO QAM Discontinued oxycodone-acetaminophen 5-325 mg Tablet 1 tab PO Q6H PRN (Reason: Pain (Scale Score 4-6)) Follow up/Referrals: Kathy Cruz MD [Primary Care Provider] - Diet/Activity/Treatments Diet: Diet as Tolerated Activity: As tolerated Visit Report/Discharge Packet Instructions: Palliative Care for Cancer Discharge Data Primary Care Provider: Kathy Cruz
== END 2021-11-11 11:44 | disposition hospice, home (50) | DRG 388 ==
LOC: ED 11-08 02:06 → AC 11-08 06:40 → ICU 11-09 10:26 → AC 11-11 10:31 → ICU 11-11 10:31
PROVIDERS: Admitting Provider Family Medicine; Emergency Provider Emergency Medicine; PCP Family Medicine; Referring Provider Emergency Medicine; Visit Provider Family Medicine
DX: K56.609 Unspecified intestinal obstruction, unspecified as to partial versus complete obstruction (principal); E43 Unspecified severe protein-calorie malnutrition; C78.7 Secondary malignant neoplasm of liver and intrahepatic bile duct; C77.2 Secondary and unspecified malignant neoplasm of intra-abdominal lymph nodes; C79.89 Secondary malignant neoplasm of other specified sites; C78.6 Secondary malignant neoplasm of retroperitoneum and peritoneum; C80.1 Malignant (primary) neoplasm, unspecified; R09.02 Hypoxemia; I73.9 Peripheral vascular disease, unspecified; M19.91 Primary osteoarthritis, unspecified site; M54.10 Radiculopathy, site unspecified; I10 Essential (primary) hypertension; E78.5 Hyperlipidemia, unspecified; Z86.73 Personal history of transient ischemic attack (TIA), and cerebral infarction without residual deficits; Z66 Do not resuscitate; Z20.822 Contact with and (suspected) exposure to COVID-19; Z68.27 Body mass index [BMI] 27.0-27.9, adult
CPT/HCPCS: 36415; 36600; 71045; 71275; 74022; 74177; 74250; 80048; 80053; 81001; 82805; 83605; 85007; 85025; 87040; 87635; 87797; 96374; 96375; 99232; 99284; 99285; C9803; C9113; J1170; J1650; J2250; J2405

== ENCOUNTER 2021-11-19 18:49 | Inpatient (IN) | payer OTHER, SELFPAY ==
[2021-11-08 09:40] VITALS: BMI 27.5
[2021-11-19] VITALS (18 sets, daily range): BP systolic 80–133; BP diastolic 50–69; PULSE 84–104; RESP 24–46; TEMP 36.7–37.6; O2SAT 89–98; BMI 28.6
--- NOTE | 2021-11-19 19:49 | DI.RAD.S_ITS ---
PROCEDURE: XR ACUTE ABDOMEN SERIES INDICATIONS: hx bowel obstruction, abd pain,CA TECHNIQUE: One view chest and two views of the abdomen were acquired. COMPARISON: [facility], CR, XR ACUTE ABDOMEN SERIES, 11/07/2021, 21:33. FINDINGS: Surgical changes and devices: Port-A-Cath from right-sided approach extends into the area of the distal SVC Chest: Lungs are clear. Heart size is normal. No pleural effusions. No pneumoperitoneum. Abdomen: Bowel gas pattern is abnormal with [id number] small bowel prominence as has been previously the case, with no free air beneath the diaphragm.. No suspicious calcifications. Visualized solid organ contours appear normal. Bones: No suspicious bony lesions. IMPRESSION: Persistent small bowel gas prominence, no free air seen. Mild colonic obstipation incidentally noted. Dictated by: Omari Aranda M.D. on 11/19/2021 at 20:45 Approved by: Omari Aranda M.D. on 11/19/2021 at 20:46
--- NOTE | 2021-11-19 19:56 | ED_ITS ---
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 She was admitted here November 07 through November 11 with bowel obstruction. She had been on immunotherapy however after the bowel obstruction she was recently started on chemotherapy in order for more aggressive treatment and shrinkage of tumors. She had her 1st chemotherapy 3 days ago. Since then she has not been eating or drinking much. She is currently on a fentanyl patch 25 mcg ED blood pressure in the 80s. She has been nauseous but not significantly vomiting. She has increased abdominal distention and bloating again she is passing gas. She has been taking lactulose without any relief. No fever or chills. She generally feels weak and fatigued. Related Data Home Medications Medication Instructions Recorded Confirmed amlodipine 10 mg tablet 1 tab PO QPM ##0 09/21/17 11/08/21 losartan 25 mg tablet 50 mg PO QAM 12/10/20 11/08/21 rosuvastatin 10 mg tablet 40 mg PO BEDTIME 12/10/20 11/08/21 aspirin 81 mg tablet,delayed 81 mg PO DAILY 08/01/21 11/08/21 release metoprolol tartrate 50 mg tablet 50 mg PO BID 11/08/21 11/08/21 Previous Rx's Medication Instructions Recorded ondansetron HCl 4 mg tablet 4 mg PO Q6H PRN Nausea #30 tabs 07/07/21 lidocaine-prilocaine 2.5 %-2.5 % 1 applic topical PRN PRN Pain At 08/23/21 topical cream Injection Site #30 grams lactulose 10 gram/15 mL oral 10 g (15 mL) PO DAILY PRN 11/07/21 solution Constipation 30 days #250 mL fentanyl 12 mcg/hr transdermal 12 mcg topical Q72H #20 ea 11/10/21 patch hydromorphone 2 mg tablet 2 mg PO Q4HR PRN Pain, Severe 11/10/21 (7-10) #30 tabs lorazepam 2 mg/mL injection syringe 0.5 mg (0.25 mL) IV Q2HR PRN 11/10/21 Anxiety #30 mL metoprolol succinate 50 mg 50 mg PO BID #30 tabs 11/10/21 tablet,extended release 24 hr potassium chloride 20 mEq/15 mL 20 meq (15 mL) PO DAILY 7 days 11/16/21 oral liquid #105 mL prochlorperazine maleate 10 mg 10 mg PO Q6H PRN Nausea #20 tabs 11/17/21 tablet (Compazine) Allergies Allergy/AdvReac Type Severity Reaction Status Date / Time Penicillins Allergy Mild Rash Verified 11/08/21 15:22 Review of Systems Review of Systems Narrative: GENERAL: Denies chills, fatigue, malaise, fever, sweats, travel HEENT: Denies sinus pain, ear pain, sore throat, difficulty swallowing, neck pain RESPIRATORY: Denies dyspnea, cough, wheezing, hemoptysis, sputum. CARDIOVASCULAR: Denies chest pain, palpitations, orthopnea, edema GASTROINTESTINAL: See HPI : Denies dysuria, frequency, incontinence, hematuria, urinary retention, flank pain. MUSCULOSKELETAL: Denies weakness, joint pain, or bony pain SKIN: No rash, no erythema, no pruritus NEUROLOGIC: Denies weakness, dizziness, headache, numbness, change in speech, confusion PSYCHIATRIC: No concerning psychosocial issues. 12 point review of systems is negative except for those stated above and HPI Patient History Medical History Elevated cholesterol FH: carotid endarterectomy Hepatic steatosis Hypertension Night sweats Swollen lymph nodes TIA (transient ischemic attack) Surgical History History of hysterectomy Social History household members: spouse Smoking Status: Never smoker alcohol intake: never Smoking Status: Never smoker alcohol intake frequency: a few times a week Substance Use Type: does not use Exam Initial Vital Signs Initial Vital Signs: Vital Signs Temperature 98.1 F 11/19/21 19:28 Pulse Rate 104 H 11/19/21 19:28 Respiratory Rate 28 H 11/19/21 19:28 Blood Pressure 80/52 L 11/19/21 19:28 Pulse Oximetry 90 L 11/19/21 19:28 Oxygen Delivery Method 11/19/21 19:28 GENERAL: Alert week slightly pale 75-year-old female in [id number] distress and in no acute distress. HEENT: Head atraumatic,EOMI, pupils reactive, face symmetric, moist mucous membranes CARDIOVASCULAR: Regular rate and rhythm without murmurs, rubs or gallops. RESPIRATORY: Breath sounds equal bilaterally, no wheezes rales or rhonchi. ABDOMEN: Distended abdomen EXTREMITIES: Normal range of motion, no clubbing or edema. Neurovascularly intact NEUROLOGICAL: Alert and oriented x4. SKIN: Warm, dry, no laceration, no petechiae, no rashes or lesions. Course Orders Ordered: ED Orders 11/19/21 23:35 Respiratory Panel (Film Array) Stat NOREPINEPHRINE BITARTRATE/D5W (Levophed) 4 mg in 250 mls @ 18.75 mls/hr IV TITRATE ALIRIO; Protocol Last Titration: 11/20/21 05:40 Dose: 0 mcg/min, 0 mls/hr Documented By: Admin: 11/20/21 02:16 Dose: 5 mcg/min, 18.75 mls/hr Documented By: RODERICK Discontinued Medications Hydromorphone HCl (Hydromorphone 1 Mg Inj) 1 mg IV NOW ONE Stop: 11/19/21 23:03 Last Admin: 11/19/21 23:14 Dose: 1 mg Documented By: AT Hydromorphone HCl (Hydromorphone 0.5 Mg Inj) 0.5 mg IV NOW ONE Stop: 11/20/21 05:45 Last Admin: 11/20/21 06:11 Dose: 0.5 mg Documented By: RODERICK Sodium Chloride (Normal Saline 0.9%) 1,000 mls @ 1,000 mls/hr IV BOLUS ONE Stop: 11/19/21 20:47 Last Infusion: 11/19/21 22:57 Dose: 0 mls/hr Documented By: Admin: 11/19/21 20:25 Dose: 1,000 mls/hr Documented By: AT Lactated Ringer's (Lactated Ringers) 1,932.3 mls @ 644.1 mls/hr 30 ml/kg infuse over 3 hr (1932.3 ml) IV NOW ONE Stop: 11/20/21 00:14 Last Admin: 11/19/21 21:29 Dose: 644.1 mls/hr Documented By: AT Vancomycin HCl (Vancomycin) 1,000 mg in 200 mls @ 200 mls/hr IV NOW ONE Stop: 11/19/21 22:31 Last Infusion: 11/20/21 01:01 Dose: 0 mls/hr Documented By: Admin: 11/19/21 23:30 Dose: 200 mls/hr Documented By: AT Cefepime HCl 2 gm/ Sodium (Chloride) 100 mls @ 200 mls/hr IV NOW ONE Stop: 11/19/21 21:35 Last Infusion: 11/19/21 23:26 Dose: 0 mls/hr Documented By: Admin: 11/19/21 22:30 Dose: 200 mls/hr Documented By: RL Lidocaine HCl (Lidocaine 1% (Pf) 5 Ml) 1 ml SUBCUT NOW ONE Stop: 11/20/21 01:03 Last Admin: 11/20/21 02:15 Dose: 1 ml Documented By: RODERICK Midazolam HCl (Midazolam 2 Mg/2 Ml Vial) 1 mg IV NOW ONE Stop: 11/19/21 21:33 Last Admin: 11/20/21 04:45 Dose: Not Given Documented By: RODERICK Ondansetron HCl (Ondansetron 4 Mg/2 Ml Inj) 4 mg IV NOW ONE Stop: 11/19/21 21:44 Last Admin: 11/19/21 21:49 Dose: 4 mg Documented By: AT Vital Signs Vital signs: Vital Signs - 8 hr 11/19/21 22:57 11/19/21 22:58 11/19/21 23:22 Temperature 99.6 F Pulse Rate 93 H Respiratory Rate 46 H Blood Pressure 133/69 Pulse Oximetry 90 L Oxygen Delivery Method Oxygen Flow Rate 11/19/21 22:58 11/19/21 23:00 11/19/21 23:00 Temperature Pulse Rate 93 H 93 H Respiratory Rate 36 H 39 H Blood Pressure 128/66 Pulse Oximetry 89 L 90 L Oxygen Delivery Method Nasal Cannula Oxygen Flow Rate 3 11/19/21 23:15 11/19/21 23:15 11/19/21 23:30 Temperature Pulse Rate 91 H Respiratory Rate 39 H Blood Pressure 116/67 113/65 Pulse Oximetry 91 Oxygen Delivery Method Oxygen Flow Rate 11/19/21 23:30 Temperature Pulse Rate 87 Respiratory Rate 28 H Blood Pressure Pulse Oximetry 91 Oxygen Delivery Method Nasal Cannula Oxygen Flow Rate 3 MDM - Abdominal Pain Lab Data Result diagrams: 11/20/21 05:40 11/20/21 05:40 Labs: Lab Results 11/19/21 11/19/21 11/19/21 Range/Units 20:08 20:08 20:08 WBC 7.1 (4.5-11.0) X10^3/uL RBC 3.50 L (4.0-5.2) X10^6/uL Hgb 9.3 L (12.0-16.0) g/dL Hct 28.3 L (36-46) % MCV 80.8 (80-100) fL MCH 26.5 (26-34) PG MCHC 32.8 (30-36) % RDW 16.6 H (11.6-14.8) % Plt Count 196 (150-400) X10^3/uL Neut % (Auto) 97.2 H (50-75) % Lymph % (Auto) 2.1 L (25-40) % Mclennan % (Auto) 0.3 L (3-14) % Eos % (Auto) 0.0 L (2-4) % Baso % (Auto) 0.4 (0-2) % Neut # (Auto) 6900 (8438-9482) /uL Lymph # (Auto) 100 L (5028-0913) /uL Mclennan # (Auto) 0 (0-900) /uL Eos # (Auto) 0 (0-450) /uL Baso # (Auto) 0 (0-100) /uL Sodium 128 L (137-145) mmol/L Potassium 3.5 (3.4-5.1) mmol/L Chloride 91 L (98-107) mmol/L Carbon Dioxide 24 (22-32) mmol/L BUN 41 H (7-17) mg/dL Creatinine 2.71 H (0.52-1.04) mg/dL Estimated GFR 18 L (>60) mL/min BUN/Creatinine Ratio 15.1 (6-22) Glucose 120 H (80-110) mg/dL Lactate 5.0 H* (0.7-2.1) mmol/L Calcium 10.4 H (8.4-10.2) mg/dL Total Bilirubin 2.1 H (0.2-1.3) mg/dL AST 209 H (14-36) IU/L ALT 42 H (<35) IU/L Alkaline Phosphatase 253 H (38-126) U/L Total Protein 5.7 L (6.3-8.2) g/dL Albumin 2.8 L (3.5-5.0) g/dL Globulin 2.9 (1.7-4.1) g/dL Albumin/Globulin Ratio 1.0 (1.0-2.8) Lipase 29 (23-300) U/L Procalcitonin 4.07 H (<0.5) ng/mL Chlamy pneumoniae PCR (Not Detect) Adenovirus (PCR) (Not Detect) B. pertussis DNA (PCR) (Not Detecte) B.parapertussis DNA PCR (Not Detecte) Coronavirus OC43 (PCR) (Not Detect) Coronavirus HKU1 (PCR) (Not Detect) Coronavirus 229E (PCR) (Not Detect) SARS-CoV-2 (PCR) (Not Detecte) Coronavirus NL63 (PCR) (Not Detect) Human Metapneumovir PCR (Not Detect) Influenza Type A (PCR) (Not Detect) Influenza Type B (PCR) (Not Detect) M. pneumoniae (PCR) (Not Detect) Parainfluenza 1 (PCR) (Not Detect) Parainfluenza 2 (PCR) (Not Detect) Parainfluenza 3 (PCR) (Not Detect) Parainfluenza 4 (PCR) (Not Detect) RSV (PCR) (Not Detect) Entero/Rhino (PCR) (Not Detect) 11/19/21 11/19/21 Range/Units 22:30 23:35 WBC (4.5-11.0) X10^3/uL RBC (4.0-5.2) X10^6/uL Hgb (12.0-16.0) g/dL Hct (36-46) % MCV (80-100) fL MCH (26-34) PG MCHC (30-36) % RDW (11.6-14.8) % Plt Count (150-400) X10^3/uL Neut % (Auto) (50-75) % Lymph % (Auto) (25-40) % Mclennan % (Auto) (3-14) % Eos % (Auto) (2-4) % Baso % (Auto) (0-2) % Neut # (Auto) (3347-6950) /uL Lymph # (Auto) (4156-9276) /uL Mclennan # (Auto) (0-900) /uL Eos # (Auto) (0-450) /uL Baso # (Auto) (0-100) /uL Sodium (137-145) mmol/L Potassium (3.4-5.1) mmol/L Chloride (98-107) mmol/L Carbon Dioxide (22-32) mmol/L BUN (7-17) mg/dL Creatinine (0.52-1.04) mg/dL Estimated GFR (>60) mL/min BUN/Creatinine Ratio (6-22) Glucose (80-110) mg/dL Lactate 4.3 H* (0.7-2.1) mmol/L Calcium (8.4-10.2) mg/dL Total Bilirubin (0.2-1.3) mg/dL AST (14-36) IU/L ALT (<35) IU/L Alkaline Phosphatase (38-126) U/L Total Protein (6.3-8.2) g/dL Albumin (3.5-5.0) g/dL Globulin (1.7-4.1) g/dL Albumin/Globulin Ratio (1.0-2.8) Lipase (23-300) U/L Procalcitonin (<0.5) ng/mL Chlamy pneumoniae PCR Not detected (Not Detect) Adenovirus (PCR) Not detected (Not Detect) B. pertussis DNA (PCR) Not detected (Not Detecte) B.parapertussis DNA PCR Not detected (Not Detecte) Coronavirus OC43 (PCR) Not detected (Not Detect) Coronavirus HKU1 (PCR) Not detected (Not Detect) Coronavirus 229E (PCR) Not detected (Not Detect) SARS-CoV-2 (PCR) Not detected (Not Detecte) Coronavirus NL63 (PCR) Not detected (Not Detect) Human Metapneumovir PCR Not detected (Not Detect) Influenza Type A (PCR) Not detected (Not Detect) Influenza Type B (PCR) Not detected (Not Detect) M. pneumoniae (PCR) Not detected (Not Detect) Parainfluenza 1 (PCR) Not detected (Not Detect) Parainfluenza 2 (PCR) Not detected (Not Detect) Parainfluenza 3 (PCR) Not detected (Not Detect) Parainfluenza 4 (PCR) Not detected (Not Detect) RSV (PCR) Not detected (Not Detect) Entero/Rhino (PCR) Not detected (Not Detect) Imaging Data Abdominal x-ray: Radiologist's Impression: [address] [address] XRay Report Signed Patient: Sylvia Carmen MR#: [id number] : 1945 Acct:[id number] Age/Sex: 75 / F Date of Service: 11/19/21 Loc: ED Accession Number: [id number] ?? Procedure: XR acute abdomen series Ordering Provider: Verónica Clarke D.O. PROCEDURE:? XR ACUTE ABDOMEN SERIES ? INDICATIONS:? hx bowel obstruction, abd pain,CA ? TECHNIQUE:? One view chest and two views of the abdomen were acquired.? ? COMPARISON:? [facility], CR, XR ACUTE ABDOMEN SERIES, 11/07/2021, 21:33. ? FINDINGS:? ? Surgical changes and devices:? Port-A-Cath from right-sided approach extends into the area of the distal SVC ? Chest:? Lungs are clear.? Heart size is normal.? No pleural effusions.? No pneumoperitoneum.? ? Abdomen:? Bowel gas pattern is abnormal with [id number] small bowel prominence as has been previously the case, with no free air beneath the diaphragm..? No suspicious calcifications.? Visualized solid organ contours appear normal.? ? Bones:? No suspicious bony lesions.? ? IMPRESSION:? Persistent small bowel gas prominence, no free air seen.? Mild colonic obstipation incidentally noted. ? ? Dictated by: Omari Aranda M.D. on 11/19/2021 at 20:45 ? ? CT scan - abdomen/pelvis: Radiologist's Impression: CT Scan Report Signed Patient: Sylvia Carmen MR#: [id number] : 1945 Acct:[id number] Age/Sex: 75 / F Date of Service: 11/19/21 Loc: ED Accession Number: [id number] ?? Procedure: CT abdomen pelvis wo con Ordering Provider: Verónica Clarke D.O. PROCEDURE:? CT ABDOMEN PELVIS WO CON ? INDICATIONS:? bowel obstruction and cancer(GFR-18) ? TECHNIQUE:? Noncontrast 5 mm thick sections acquired from the diaphragms to the symphysis.? 5 mm coronal and sagittal reformats were then performed.? For radiation dose reduction, the following was used:? automated exposure control, adjustment of mA and/or kV according to patient size.? ? COMPARISON:? None. ? FINDINGS:? Image quality:? Reduced by absence of both oral and intravenous contrast.? ? ABDOMEN:? Lung bases:? Lung bases are abnormal with mild pneumonia pattern greater on the right than the left and a moderate size right pleural effusion.? Heart size is normal.? ? Solid organs:? Liver is normal in size.? Gallbladder appears contracted and is poorly visualized .? Pancreas is normal in contours.? Spleen is normal in size.? No adrenal nodules.? Kidneys are normal in size, without hydronephrosis or nephrolithias is.? ? Peritoneum and bowel:? Unenhanced bowel loops demonstrate normal wall thickness and the small bowel shows mild fluid dilatation.? Within the peritoneal soft tissues there appears to be pericolonic edema and omental thickening consistent with peritoneal carcinomatosis.? No free air.? Mild ascites. ? Nodes and vessels:? No retroperitoneal or mesenteric adenopathy by size criteria.? Aorta and inferior vena cava are normal in caliber.? ? Miscellaneous:? No ventral hernias.? ? ? PELVIS:? Genitourinary:? Bladder wall thickness is normal.? ? Miscellaneous:? No inguinal hernias or adenopathy.? ? Bones:? No suspicious bony lesions.? No vertebral body compression fractures.? ? IMPRESSION:? Quality of visualization is somewhat limited by the absence of both oral and intravenous contrast.? Note is made of a pattern of peritoneal carcinomatosis and small bowel [id number] fluid dilatation.? A mechanical obstructive mass is not identified.? Ileus may be present.? Note is made of what appears to be mild pneumonia each lung base greater on the right than the left with a moderate right pleural effusion. ? ? Dictated by: Omari Aranda M.D. on 11/19/2021 at 22:36 ? ? Approved by: Omari Aranda M.D. on 11/19/2021 at 22:39? MDM Narrative Medical decision making narrative: Patient presents with hypotensive and abdominal distension. She is found have elevated lactate of 5 and elevated procalcitonin as well. Concern for possible sepsis although she is afebrile without leukocytosis. She is covered with vancomycin and cefepime. She is given sepsis fluid which does help however she is requiring oxygen concern for need for more oxygen possible intubation if fluids continue. I have discussed with patient and code status. We had eloy discussion of goals of care. No CPR no intubation, but decided fluids antibiotics and pressors were okay. Dr. Chen surgery looked at CT abdomen is quite distended she slightly nauseous but there is no obvious sign of obstruction. Dr. Chen also agrees no need for any sort of surgery intervention. Does not even look like she has significant amount of stool. Patient's pain is not significantly out of proportion differential included ischemia however she really does not have pain. Small dose of norepinephrine is started to help maintain blood pressure. She has had very minimal urine output. There is critical bed shortage she is on many lists unable to get her anywhere. Dr. Moreno has been updated patient's symptoms test results and agrees with admission. Critical Care Time Critical Care Time Critical Care Time: Yes Total Critical Care Time: 45 Attestation: The high probability of a clinically significant, sudden or life threatening deterioration of the cardiovascular system(s) required my full and direct attention, intervention and personal management. The aggregate critical care time was 45 minutes. This time is in addition to time spent performing reported procedures but includes the following: x Data Review and interpretation x Patient assessment and monitoring of vital signs x Documentation x Medication orders and management Discharge Plan Departure Patient Disposition: Admitted As Inpatient Clinical Impression: Acute dehydration Admit Date/Time: 11/19/21 23:44 Admit Provider: Amy Cronin
[2021-11-19 20:22] LABS: Add Manual Diff / Slide Review NO; Basophils Absolute Auto 0 /uL (0-100); Basophils Percent Auto 0.4 % (0-2); Eosinophils Absolute Auto 0 /uL (0-450); Hematocrit 28.3 % (36-46); Hemoglobin 9.3 g/dL (12.0-16.0); Lymphocytes Absolute Auto 100 /uL (1100-4500); Lymphocytes Percent Auto 2.1 % (25-40); Mean Corpuscular HGB Conc 32.8 % (30-36); Mean Corpuscular Hemoglobin 26.5 PG (26-34); Mean Corpuscular Volume 80.8 fL (80-100); Monocytes Absolute Auto 0 /uL (0-900); Monocytes Percent Auto 0.3 % (3-14); Neutrophils Absolute Auto 6900 /uL (1500-7000); Neutrophils Percent Auto 97.2 % (50-75); Platelet Count 196 X10^3/uL (150-400); Red Cell Distribution Width 16.6 % (11.6-14.8); White Blood Cell Count 7.1 X10^3/uL (4.5-11.0)
[2021-11-19] MEDS: SODIUM CHLORIDE 0.9% 1,000 ML 1000 ML IV (20:25)
[2021-11-19 20:46] LABS: Alanine Aminotransferase 42 IU/L (<35); Albumin 2.8 g/dL (3.5-5.0); Alkaline Phosphatase 253 U/L (38-126); Aspartate Aminotransferase 209 IU/L (14-36); BUN Creatinine Ratio 15.1 (6-22); Bilirubin Total 2.1 mg/dL (0.2-1.3); Blood Urea Nitrogen 41 mg/dL (7-17); Calcium 10.4 mg/dL (8.4-10.2); Carbon Dioxide 24 mmol/L (22-32); Chloride 91 mmol/L (98-107); Estimated Glomerular Filt Rate 18 mL/min (>60); Globulin 2.9 g/dL (1.7-4.1); Glucose 120 mg/dL (80-110); HEMOLYSIS < 15 (0-50); Lipase 29 U/L (23-300); Potassium 3.5 mmol/L (3.4-5.1); Sodium 128 mmol/L (137-145); Total Protein 5.7 g/dL (6.3-8.2)
[2021-11-19 21:03] LABS: Procalcitonin 4.07 ng/mL (<0.5)
[2021-11-19] MEDS: LACTATED RINGERS 644.1 ML IV (21:29)
--- NOTE | 2021-11-19 21:32 | DI.CT.S_ITS ---
PROCEDURE: CT ABDOMEN PELVIS WO CON INDICATIONS: bowel obstruction and cancer(GFR-18) TECHNIQUE: Noncontrast 5 mm thick sections acquired from the diaphragms to the symphysis. 5 mm coronal and sagittal reformats were then performed. For radiation dose reduction, the following was used: automated exposure control, adjustment of mA and/or kV according to patient size. COMPARISON: None. FINDINGS: Image quality: Reduced by absence of both oral and intravenous contrast. ABDOMEN: Lung bases: Lung bases are abnormal with mild pneumonia pattern greater on the right than the left and a moderate size right pleural effusion. Heart size is normal. Solid organs: Liver is normal in size. Gallbladder appears contracted and is poorly visualized . Pancreas is normal in contours. Spleen is normal in size. No adrenal nodules. Kidneys are normal in size, without hydronephrosis or nephrolithiasis. Peritoneum and bowel: Unenhanced bowel loops demonstrate normal wall thickness and the small bowel shows mild fluid dilatation. Within the peritoneal soft tissues there appears to be pericolonic edema and omental thickening consistent with peritoneal carcinomatosis. No free air. Mild ascites. Nodes and vessels: No retroperitoneal or mesenteric adenopathy by size criteria. Aorta and inferior vena cava are normal in caliber. Miscellaneous: No ventral hernias. PELVIS: Genitourinary: Bladder wall thickness is normal. Miscellaneous: No inguinal hernias or adenopathy. Bones: No suspicious bony lesions. No vertebral body compression fractures. IMPRESSION: Quality of visualization is somewhat limited by the absence of both oral and intravenous contrast. Note is made of a pattern of peritoneal carcinomatosis and small bowel [id number] fluid dilatation. A mechanical obstructive mass is not identified. Ileus may be present. Note is made of what appears to be mild pneumonia each lung base greater on the right than the left with a moderate right pleural effusion. Dictated by: Omari Aranda M.D. on 11/19/2021 at 22:36 Approved by: Omari Aranda M.D. on 11/19/2021 at 22:39
[2021-11-19] MEDS: ONDANSETRON 4 MG/2 ML INJ IV (21:49)
[2021-11-19 22:19] LABS: Reflexed Lactate in 2 Hours Y
[2021-11-19] MEDS: CEFEPIME 2 GM in SODIUM CHLORIDE 0.9% 100 ML IV (22:30)
[2021-11-19 22:51] LABS: Lactate 2HR (Lactic Acid Rflx) 4.3 mmol/L (0.7-2.1)
[2021-11-19] MEDS: HYDROMORPHONE 1 MG INJ IV (23:14)
[2021-11-19] MEDS: VANCOMYCIN 1,000 MG/200 ML PIGGYBACK 200 MG IV (23:30)
[2021-11-20] VITALS (56 sets, daily range): BP systolic 73–133; BP diastolic 44–66; PULSE 72–102; RESP 0–25; TEMP 36.6–37.1; O2SAT 93–98; BMI 28.6
[2021-11-20 00:28] LABS: Appearance Urine UA CLOUDY; Bilirubin Urine UA 1+ (NEGATIVE); Color Urine UA YELLOW; Glucose Urine UA TRACE g/dL (Negative); Ketones Urine UA TRACE (NEGATIVE); Leukocyte Esterase Urine UA TRACE (NEGATIVE); Nitrite Urine UA NEGATIVE (Negative); Occult Blood Urine UA 3+ (Negative); Protein Urine UA 3+ (Negative)
[2021-11-20 00:39] LABS: Ictotest Urine Negative (Negative)
[2021-11-20 00:54] LABS: RBC Urine 0-1/HPF (0-5/HPF); Squamous Epithelial Cell Urine 10-30 /HPF (0-5/HPF); WBC Urine 1-5/HPF (0-5/HPF)
[2021-11-20 00:55] LABS: Bacteria Urine Many (>30); Culture Indicated Urine Cult Not Indicated; Granular Casts Urine 10-30/LPF
[2021-11-20 01:06] LABS: Adenovirus Not Detected (Not Detect); B. parapertussis Not Detected (Not Detecte); Bordetella pertussis Not Detected (Not Detecte); Chlamydophila pneumoniae Not Detected (Not Detect); Coronavirus 229E Not Detected (Not Detect); Coronavirus HKU1 Not Detected (Not Detect); Coronavirus NL 63 Not Detected (Not Detect); Coronavirus OC43 Not Detected (Not Detect); Human Metapneumovirus Not Detected (Not Detect); Human Rhinovirus/Enterovirus Not Detected (Not Detect); Influenza A Not Detected (Not Detect); Influenza B Not Detected (Not Detect); Mycoplasma pneumoniae Not Detected (Not Detect); Parainfluenza Virus 1 Not Detected (Not Detect); Parainfluenza Virus 2 Not Detected (Not Detect); Parainfluenza Virus 3 Not Detected (Not Detect); Parainfluenza Virus 4 Not Detected (Not Detect); Respiratory Syncytial Virus Not Detected (Not Detect); SARS- CoV-2 Not Detected (Not Detecte)
[2021-11-20] MEDS: LIDOCAINE 1% (PF) 5 ML 1 ML SUBCUT (02:15)
[2021-11-20] MEDS: NOREPINEPHRINE BITARTRATE/D5W 4 MG/250 ML PLAST..BAG 18.75 MG IV (02:16)
--- NOTE | 2021-11-20 02:17 | PC.NURSE ---
R chest port accessed per protocol, pt tolerated well. Levophed now infusing centrally.
[2021-11-20 03:56] LABS: Appearance Urine UA CLOUDY; Bilirubin Urine UA 1+ (NEGATIVE); Glucose Urine UA TRACE g/dL (Negative); Ketones Urine UA NEGATIVE (NEGATIVE); Leukocyte Esterase Urine UA TRACE (NEGATIVE); Nitrite Urine UA NEGATIVE (Negative); Occult Blood Urine UA 3+ (Negative); Protein Urine UA 2+ (Negative)
[2021-11-20 04:00] LABS: Color Urine UA YELLOW
[2021-11-20 04:01] LABS: Ictotest Urine Negative (Negative)
[2021-11-20 04:23] LABS: Amorphous Sediment Urine 3+; Granular Casts Urine 1-5/LPF; RBC Urine None Seen (0-5/HPF); Squamous Epithelial Cell Urine 1-5 /HPF (0-5/HPF); WBC Urine None Seen (0-5/HPF)
[2021-11-20 04:24] LABS: Culture Indicated Urine Specimen Cultured
[2021-11-20 04:29] LABS: Bacteria Urine None Seen
[2021-11-20 05:56] LABS: Hematocrit 23.9 % (36-46); Hemoglobin 7.9 g/dL (12.0-16.0); Mean Corpuscular Hemoglobin 26.6 PG (26-34); Mean Corpuscular Volume 80.7 fL (80-100); Platelet Count 159 X10^3/uL (150-400); Red Blood Cell Count 2.96 X10^6/uL (4.0-5.2); Red Cell Distribution Width 16.4 % (11.6-14.8)
[2021-11-20 06:01] LABS: Lactate (Lactic Acid) 2.4 mmol/L (0.7-2.1)
[2021-11-20 06:02] LABS: Alanine Aminotransferase 40 IU/L (<35); Albumin 2.4 g/dL (3.5-5.0); Albumin Globulin Ratio 0.9 (1.0-2.8); Alkaline Phosphatase 184 U/L (38-126); Aspartate Aminotransferase 183 IU/L (14-36); BUN Creatinine Ratio 16.5 (6-22); Bilirubin Total 2.2 mg/dL (0.2-1.3); Blood Urea Nitrogen 46 mg/dL (7-17); Calcium 8.9 mg/dL (8.4-10.2); Carbon Dioxide 24 mmol/L (22-32); Chloride 94 mmol/L (98-107); Estimated Glomerular Filt Rate 17 mL/min (>60); Globulin 2.6 g/dL (1.7-4.1); Glucose 123 mg/dL (80-110); HEMOLYSIS < 15 (0-50); Potassium 3.7 mmol/L (3.4-5.1); Sodium 126 mmol/L (137-145)
[2021-11-20] MEDS: HYDROMORPHONE 0.5 MG INJ IV (06:11)
[2021-11-20 06:23] LABS: White Blood Cell Count 1.7 X10^3/uL (4.5-11.0)
[2021-11-20 06:24] LABS: Add Manual Diff / Slide Review YES
[2021-11-20 06:59] LABS: Neutrophils Absolute Manual 1496 /uL (3000-5900); Total Cells Counted 100
[2021-11-20 07:00] LABS: Anisocytosis 1+; Poikilocytosis 1+
[2021-11-20 07:49] LABS: Reflexed Lactate in 2 Hours Y
--- NOTE | 2021-11-20 09:33 | PC.NURSE ---
Rec'd report from Aida Stearns RN. Pt resting in bed with at side. NPO. mild confusion. States comfortable at this time. BP 120 systolic. Pt was removed from Levophed overnight. LR infusing TKO. Needs met at this time.
--- NOTE | 2021-11-20 09:43 | PM.HP.1 ---
History of Present Illness History of Present Illness Date Patient Seen: 11/20/21 Time Patient Seen: 09:50 Chief complaint: stomache concerns/dr Dietz possible blockage Narrative: Pt is a 75yo woman with squamous cell carcinoma with unknown primary, peripheral vascular disease, HTN, depression, gout, hx of CVA who presented with decreased PO intake, worsening abdominal pain, bloating and fatigue. The was hospitalized from 11/08-11/11 with likely partial small bowel obstruction, thought to potentially be related to progression of her cancer and omental caking. She was ultimately discharged homes, with plans to establish with hospice. She reports that since leaving the hospital they have been primarily eating broths and liquid foods. They tried eating some more solid foods, such as halibut and salad. The pt reports that her abdominal pain worsened significantly, and has continued to intensify since then. She also reports worsening abdominal bloating. Her reports that she has only had water to drink for intake for the past 2 days. She has not had a BM in 4 days. She has been getting increasingly fatigued. Of note, the pt did not establish with hospice after discharge from the hospital 2 weeks ago. She saw her oncologist, Dr Baker, and paliative chemotherapy was initiated. The pt denies any recent chest pain, distinct SOB. She denies any blood in her stool when she was having BMs, or any dysuria. She denies any recent cough or nasal congestion. Past medical history: 1. Squamous cell carcinoma, poorly differentiated, unknown primary, currently undergoing immunotherapy and possible chemotherapy 2. Hyperlipidemia 3. Peripheral vascular disease, status post endarterectomy 4. CVA without residual defect 5. Hypertension 6. Depression 7. Lumbar radiculopathy 8. Gout 9. Impaired glucose tolerance Past surgical history 1. [place] with BSO secondary to tubal an infection at age 29 2. Left carotid endarterectomy, December 14, 2020 3. Port-A-Cath placed Family history Father in his late 80s or early 90s, had type 2 diabetes and gout Mother age 37 of cerebral aneurysm Siblings:? Brother with diabetes, sister with lung cancer Son with alcoholism Daughter in her 40s of lung cancer, nonsmoker Social history patient is , her is Turner Patient History Medical History Elevated cholesterol FH: carotid endarterectomy Hepatic steatosis Hypertension Night sweats Swollen lymph nodes TIA (transient ischemic attack) Surgical History History of hysterectomy Family & Social History Social History: household members spouse Safety & Behavioral: Feels Safe in Current Yes Environment Tobacco & Substance use: Smoking Status Never smoker alcohol intake never alcohol intake frequency a few times a week Substance Use Type does not use Meds Home Medications and Allergies Home Medications Medication Instructions Recorded Confirmed Type amlodipine 10 mg tablet 1 tab PO QPM ##0 09/21/17 11/08/21 History losartan 25 mg tablet 50 mg PO QAM 12/10/20 11/08/21 History rosuvastatin 10 mg tablet 40 mg PO BEDTIME 12/10/20 11/08/21 History aspirin 81 mg tablet,delayed 81 mg PO DAILY 08/01/21 11/08/21 History release lactulose 10 gram/15 mL oral 10 g (15 mL) PO DAILY PRN 11/07/21 11/08/21 Rx solution Constipation 30 days #250 mL metoprolol tartrate 50 mg tablet 50 mg PO BID 11/08/21 11/08/21 History fentanyl 12 mcg/hr transdermal 12 mcg topical Q72H #20 ea 11/10/21 Rx patch hydromorphone 2 mg tablet 2 mg PO Q4HR PRN Pain, Severe 11/10/21 Rx (7-10) #30 tabs potassium chloride 20 mEq/15 mL 20 meq (15 mL) PO DAILY 7 days 11/16/21 Rx oral liquid #105 mL prochlorperazine maleate 10 mg 10 mg PO Q6H PRN Nausea #20 tabs 11/17/21 Rx tablet (Compazine) Allergies Allergy/AdvReac Type Severity Reaction Status Date / Time Penicillins Allergy Mild Rash Verified 11/08/21 15:22 Exam Vital Signs (past 8 hours): - 11/20/21 01:45 11/20/21 01:45 11/20/21 02:00 Pulse Rate 75 Respiratory Rate 17 Blood Pressure 78/53 L 80/51 L Pulse Oximetry 96 11/20/21 02:00 11/20/21 02:15 11/20/21 02:15 Pulse Rate 74 75 Respiratory Rate 16 Blood Pressure 78/51 L Pulse Oximetry 95 97 11/20/21 02:28 11/20/21 02:28 11/20/21 02:30 Pulse Rate 73 Respiratory Rate Blood Pressure 105/60 98/60 Pulse Oximetry 98 11/20/21 02:30 11/20/21 02:45 11/20/21 02:45 Pulse Rate 72 74 Respiratory Rate Blood Pressure 99/54 L Pulse Oximetry 98 96 11/20/21 03:00 11/20/21 03:00 11/20/21 03:15 Pulse Rate 74 Respiratory Rate Blood Pressure 100/59 L 103/60 Pulse Oximetry 96 11/20/21 03:15 11/20/21 03:30 11/20/21 03:30 Pulse Rate 75 76 Respiratory Rate 19 Blood Pressure 101/59 L Pulse Oximetry 96 97 11/20/21 03:45 11/20/21 03:45 11/20/21 04:00 Pulse Rate 81 Respiratory Rate 23 Blood Pressure 118/63 110/65 Pulse Oximetry 96 11/20/21 04:00 11/20/21 04:15 11/20/21 04:15 Pulse Rate 79 79 Respiratory Rate 19 19 Blood Pressure 111/62 Pulse Oximetry 95 96 11/20/21 04:30 11/20/21 04:30 11/20/21 04:45 Pulse Rate 79 Respiratory Rate 17 Blood Pressure 111/60 112/63 Pulse Oximetry 95 11/20/21 04:45 11/20/21 05:00 11/20/21 05:00 Pulse Rate 80 80 Respiratory Rate 19 18 Blood Pressure 109/59 L Pulse Oximetry 95 95 11/20/21 05:15 11/20/21 05:15 11/20/21 05:30 Pulse Rate 80 Respiratory Rate 20 Blood Pressure 111/65 110/64 Pulse Oximetry 96 11/20/21 05:30 11/20/21 05:38 11/20/21 05:38 Pulse Rate 80 82 Respiratory Rate 18 23 Blood Pressure 100/59 L Pulse Oximetry 96 95 11/20/21 05:45 11/20/21 05:45 11/20/21 06:00 Pulse Rate 83 Respiratory Rate 21 Blood Pressure 96/54 L 97/56 L Pulse Oximetry 93 11/20/21 06:00 11/20/21 06:15 11/20/21 06:15 Pulse Rate 81 82 Respiratory Rate 21 20 Blood Pressure 98/56 L Pulse Oximetry 95 94 11/20/21 06:30 11/20/21 06:30 11/20/21 06:45 Pulse Rate 80 Respiratory Rate 14 Blood Pressure 95/53 L 98/53 L Pulse Oximetry 94 11/20/21 06:45 11/20/21 07:00 11/20/21 07:00 Pulse Rate 80 80 Respiratory Rate 15 14 Blood Pressure 93/52 L Pulse Oximetry 96 96 11/20/21 07:15 11/20/21 07:15 11/20/21 07:30 Pulse Rate 81 Respiratory Rate 17 Blood Pressure 100/58 L 96/56 L Pulse Oximetry 96 11/20/21 07:30 11/20/21 07:45 11/20/21 07:45 Pulse Rate 80 80 Respiratory Rate 15 15 Blood Pressure 97/56 L Pulse Oximetry 97 97 11/20/21 08:00 11/20/21 08:00 11/20/21 08:15 Pulse Rate 81 80 Respiratory Rate 17 17 Blood Pressure 103/61 Pulse Oximetry 97 95 11/20/21 08:15 11/20/21 08:30 11/20/21 08:30 Pulse Rate 83 Respiratory Rate 2 L Blood Pressure 106/60 111/59 L Pulse Oximetry 96 11/20/21 08:51 11/20/21 08:51 11/20/21 09:00 Pulse Rate 85 Respiratory Rate 19 Blood Pressure 115/64 116/66 Pulse Oximetry 96 11/20/21 09:00 11/20/21 09:15 11/20/21 09:15 Pulse Rate 83 86 Respiratory Rate 17 18 Blood Pressure 119/65 Pulse Oximetry 96 96 11/20/21 09:30 11/20/21 09:30 Pulse Rate 85 Respiratory Rate 20 Blood Pressure 117/64 Pulse Oximetry 96 Oxygen Delivery Method Nasal Cannula Oxygen Flow Rate 3 Narrative Exam Narrative: GEN - alert, cooperative and no distress HEENT - normocephalic and atraumatic, sclera white, moist mucus membranes NECK - FROM, no adenopathy, no JVD HEART - RRR, S1, S2 normal, no S3 or S4, grade 2/6 systolic murmur LUNGS - symmetric chest rise, no accessory muscles, clear to auscultation bilaterally ABD - significantly distended and tympanic, hypoactive bowel sounds, diffusely tender to palpation with guarding but no rigidity or rebound, tender with percussion EXT - no cyanosis, clubbing or edema SKIN - no rashes or suspicious lesions NEURO - no gross deficits Objective Labs Result Diagrams: 11/20/21 05:40 11/20/21 05:40 Labs: Laboratory Results - last 24 hr 11/19/21 11/19/21 11/19/21 20:08 20:08 20:08 WBC 7.1 RBC 3.50 L Hgb 9.3 L Hct 28.3 L MCV 80.8 MCH 26.5 MCHC 32.8 RDW 16.6 H Plt Count 196 Neut % (Auto) 97.2 H Lymph % (Auto) 2.1 L [place] % (Auto) 0.3 L Eos % (Auto) 0.0 L Baso % (Auto) 0.4 Neut # (Auto) 6900 Lymph # (Auto) 100 L [place] # (Auto) 0 Eos # (Auto) 0 Baso # (Auto) 0 Total Counted Seg Neutrophils % Lymphocytes % (Manual) Neutrophils # (Manual) RBC Morphology Poikilocytosis Anisocytosis Sodium 128 L Potassium 3.5 Chloride 91 L Carbon Dioxide 24 BUN 41 H Creatinine 2.71 H Estimated GFR 18 L BUN/Creatinine Ratio 15.1 Glucose 120 H Lactate 5.0 H* Calcium 10.4 H Total Bilirubin 2.1 H AST 209 H ALT 42 H Alkaline Phosphatase 253 H Total Protein 5.7 L Albumin 2.8 L Globulin 2.9 Albumin/Globulin Ratio 1.0 Lipase 29 Procalcitonin 4.07 H Urine Color Urine Appearance Urine pH Ur Specific [place] Urine Protein Urine Glucose (UA) Urine Ketones Urine Occult Blood Urine Nitrate Urine Bilirubin Ur Bilirubin Confirm Urine Urobilinogen Ur Leukocyte Esterase Urine RBC Urine WBC Ur Squamous Epith Cells Amorphous Sediment Urine Bacteria Granular Casts Ur Culture Indicated? Micro UA Comment Chlamy pneumoniae PCR Adenovirus (PCR) B. pertussis DNA (PCR) B.parapertussis DNA PCR Coronavirus OC43 (PCR) Coronavirus HKU1 (PCR) Coronavirus 229E (PCR) SARS-CoV-2 (PCR) Coronavirus NL63 (PCR) Human Metapneumovir PCR Influenza Type A (PCR) Influenza Type B (PCR) M. pneumoniae (PCR) Parainfluenza 1 (PCR) Parainfluenza 2 (PCR) Parainfluenza 3 (PCR) Parainfluenza 4 (PCR) RSV (PCR) Entero/Rhino (PCR) 11/19/21 11/19/21 11/19/21 22:30 23:35 23:57 WBC RBC Hgb Hct MCV MCH MCHC RDW Plt Count Neut % (Auto) Lymph % (Auto) [place] % (Auto) Eos % (Auto) Baso % (Auto) Neut # (Auto) Lymph # (Auto) [place] # (Auto) Eos # (Auto) Baso # (Auto) Total Counted Seg Neutrophils % Lymphocytes % (Manual) Neutrophils # (Manual) RBC Morphology Poikilocytosis Anisocytosis Sodium Potassium Chloride Carbon Dioxide BUN Creatinine Estimated GFR BUN/Creatinine Ratio Glucose Lactate 4.3 H* Calcium Total Bilirubin AST ALT Alkaline Phosphatase Total Protein Albumin Globulin Albumin/Globulin Ratio Lipase Procalcitonin Urine Color Yellow Urine Appearance Cloudy Urine pH 5.0 Ur Specific [place] 1.020 Urine Protein 3+ H Urine Glucose (UA) Trace H Urine Ketones Trace H Urine Occult Blood 3+ H Urine Nitrate Negative Urine Bilirubin 1+ H Ur Bilirubin Confirm Negative Urine Urobilinogen 1.0 Ur Leukocyte Esterase Trace H Urine RBC 0-1/hpf Urine WBC 1-5/hpf Ur Squamous Epith Cells 10-30 /hpf H Amorphous Sediment Urine Bacteria Many (>30) H Granular Casts 10-30/lpf Ur Culture Indicated? Cult not indicated Micro UA Comment * Chlamy pneumoniae PCR Not detected Adenovirus (PCR) Not detected B. pertussis DNA (PCR) Not detected B.parapertussis DNA PCR Not detected Coronavirus OC43 (PCR) Not detected Coronavirus HKU1 (PCR) Not detected Coronavirus 229E (PCR) Not detected SARS-CoV-2 (PCR) Not detected Coronavirus NL63 (PCR) Not detected Human Metapneumovir PCR Not detected Influenza Type A (PCR) Not detected Influenza Type B (PCR) Not detected M. pneumoniae (PCR) Not detected Parainfluenza 1 (PCR) Not detected Parainfluenza 2 (PCR) Not detected Parainfluenza 3 (PCR) Not detected Parainfluenza 4 (PCR) Not detected RSV (PCR) Not detected Entero/Rhino (PCR) Not detected 11/20/21 11/20/21 11/20/21 03:50 05:40 05:40 WBC 1.7 L* D RBC 2.96 L Hgb 7.9 L Hct 23.9 L MCV 80.7 MCH 26.6 MCHC 33.0 RDW 16.4 H Plt Count 159 Neut % (Auto) Not Reportable Lymph % (Auto) Not Reportable [place] % (Auto) Not Reportable Eos % (Auto) Not Reportable Baso % (Auto) Not Reportable Neut # (Auto) Lymph # (Auto) Not Reportable [place] # (Auto) Not Reportable Eos # (Auto) Baso # (Auto) Not Reportable Total Counted 100 Seg Neutrophils % 88.0 H Lymphocytes % (Manual) 12.0 L Neutrophils # (Manual) 1496 L RBC Morphology Not Reportable Poikilocytosis 1+ H Anisocytosis 1+ H Sodium 126 L Potassium 3.7 Chloride 94 L Carbon Dioxide 24 BUN 46 H Creatinine 2.79 H Estimated GFR 17 L BUN/Creatinine Ratio 16.5 Glucose 123 H Lactate Calcium 8.9 Total Bilirubin 2.2 H AST 183 H ALT 40 H Alkaline Phosphatase 184 H Total Protein 5.0 L Albumin 2.4 L Globulin 2.6 Albumin/Globulin Ratio 0.9 L Lipase Procalcitonin Urine Color Yellow Urine Appearance Cloudy Urine pH 5.0 Ur Specific [place] 1.020 Urine Protein 2+ H Urine Glucose (UA) Trace H Urine Ketones Negative Urine Occult Blood 3+ H Urine Nitrate Negative Urine Bilirubin 1+ H Ur Bilirubin Confirm Negative Urine Urobilinogen 1.0 Ur Leukocyte Esterase Trace H Urine RBC None seen Urine WBC None seen Ur Squamous Epith Cells 1-5 /hpf D Amorphous Sediment 3+ Urine Bacteria None seen Granular Casts 1-5/lpf Ur Culture Indicated? Specimen cultured Micro UA Comment * Chlamy pneumoniae PCR Adenovirus (PCR) B. pertussis DNA (PCR) B.parapertussis DNA PCR Coronavirus OC43 (PCR) Coronavirus HKU1 (PCR) Coronavirus 229E (PCR) SARS-CoV-2 (PCR) Coronavirus NL63 (PCR) Human Metapneumovir PCR Influenza Type A (PCR) Influenza Type B (PCR) M. pneumoniae (PCR) Parainfluenza 1 (PCR) Parainfluenza 2 (PCR) Parainfluenza 3 (PCR) Parainfluenza 4 (PCR) RSV (PCR) Entero/Rhino (PCR) 11/20/21 05:40 WBC RBC Hgb Hct MCV MCH MCHC RDW Plt Count Neut % (Auto) Lymph % (Auto) [place] % (Auto) Eos % (Auto) Baso % (Auto) Neut # (Auto) Lymph # (Auto) [place] # (Auto) Eos # (Auto) Baso # (Auto) Total Counted Seg Neutrophils % Lymphocytes % (Manual) Neutrophils # (Manual) RBC Morphology Poikilocytosis Anisocytosis Sodium Potassium Chloride Carbon Dioxide BUN Creatinine Estimated GFR BUN/Creatinine Ratio Glucose Lactate 2.4 H Calcium Total Bilirubin AST ALT Alkaline Phosphatase Total Protein Albumin Globulin Albumin/Globulin Ratio Lipase Procalcitonin Urine Color Urine Appearance Urine pH Ur Specific [place] Urine Protein Urine Glucose (UA) Urine Ketones Urine Occult Blood Urine Nitrate Urine Bilirubin Ur Bilirubin Confirm Urine Urobilinogen Ur Leukocyte Esterase Urine RBC Urine WBC Ur Squamous Epith Cells Amorphous Sediment Urine Bacteria Granular Casts Ur Culture Indicated? Micro UA Comment Chlamy pneumoniae PCR Adenovirus (PCR) B. pertussis DNA (PCR) B.parapertussis DNA PCR Coronavirus OC43 (PCR) Coronavirus HKU1 (PCR) Coronavirus 229E (PCR) SARS-CoV-2 (PCR) Coronavirus NL63 (PCR) Human Metapneumovir PCR Influenza Type A (PCR) Influenza Type B (PCR) M. pneumoniae (PCR) Parainfluenza 1 (PCR) Parainfluenza 2 (PCR) Parainfluenza 3 (PCR) Parainfluenza 4 (PCR) RSV (PCR) Entero/Rhino (PCR) Assessment & Plan Assessment & Plan narrative: Pt is a 75yo woman with squamous cell carcinoma with unknown primary, peripheral vascular disease, HTN, depression, gout, hx of CVA who presented with decreased PO intake, worsening abdominal pain, bloating and fatigue. Pt meeting sepsis criteria at admission with elevated lactate, procalcitonin, OCTAVIA, hypotension, acute hypoxia with oxygen requirement. Unclear source at this time. Do question true sepsis vs alternative source such as ischemic bowel. Possible mild ileus on abdominal imaging. Surgery consulted from the ED, and did not recommend surgical intervention or NG tube at this time. 1) Sepsis: Unclear source, cultures pending. Hypotension initially responded to IVF boluses, but pt did require intermittent Levophed overnight to maintain pressures. Unfortunately pt more hypoxic with more IVF as abdomen became more distended. Pt with OCTAVIA and elevated liver enzymes, unclear if due to potential sepsis vs progression of illness with metastatic cancer. - F/U blood and urine cultures - Continue IV Vancomycin and Cefepime for now - mIVF for now, monitoring oxygen requirements closely - Continue to trend CMP 2) Abdominal pain: Most likely due to progression of peritoneal carcinomatosis, as per surgery. Pt interested in minimal intervention at this time to control pain primarily. - Continue Dilaudid PRN - Discussed potential NG tube to help decompress her abdomen, and the pt is very hesitant and would prefer to avoid for now 3) HTN: BP now stabilized, but remains low range. Required Levophed overnight for pressure support. - Hold home medications for now - Continue statin, however based on life expectancy could probably discontinue in the near future 4) Chronic pain from metastatic cancer: Pts primary objective is remaining comfortable. Pt did received first round of paliative chemotherapy 3 days ago. - Continue Dilaudid PRN - Will need to readdress if BP becoming an issue again - Continue antiemetics as needed 5) Acute anemia: No evidence of ongoing active bleeding. Most likely due to chemotherapy. - Will continue to monitor, trend H/H - Would need to discuss transfusion with pt prior to initiating, she may decline 6) OCTAVIA: Possibly due to dehydration although BUN/Cr ratio normal. Unfortunately minimally increased creatinine this morning with IVF yesterday. - Continue gentle mIVF - Continue to trend 7) Hyponatremia: Acutely worsening - Continue mIVF - Continue to trend - Urine sodium/osm Code: DNR, confirmed with patient and her FEN: NPO for now DVT ppx: SCDs Dispo: Pending stabilization of pt, or decision to transition to comfort/hospice care. The pt wishes to discuss ongoing prognosis with Dr Baker further prior to making decisions regarding comfort care. Overall prognosis extremely poor, and likely many of the above findings represent the pt entering end of life. Pt would still lie to pursue treatment with antibiotics, fluids, pressors if needed, but does not wish to pursue procedural based interventions at this time. Time Spent With Patient Critical Care time: I spent a total of [] minutes of critical care time on this patient's care today; this time is exclusive of procedural time.
[2021-11-20] MEDS: ASPIRIN EC 81 MG TABLET PO (12:59)
[2021-11-20] MEDS: HYDROMORPHONE 2 MG TABLET PO ×2 (13:01→16:47)
[2021-11-20] MEDS: ONDANSETRON 4 MG/2 ML INJ (13:01)
[2021-11-20] MEDS: fentaNYL 12 MCG/PATCH TOP (13:01)
[2021-11-20] MEDS: SODIUM CHLORIDE 0.45% 1,000 ML 75 ML IV ×2 (13:01→15:09)
[2021-11-20] MEDS: POTASSIUM CHLORIDE 20 MEQ/15 ML UDC PO (13:09)
[2021-11-20] MEDS: CEFEPIME 1 GM in SODIUM CHLORIDE 0.9% 100 ML IV (13:15)
[2021-11-20] MEDS: VANCOMYCIN 750 MG/150 ML PIGGYBACK 150 MG IV (15:07)
[2021-11-20] MEDS: PROCHLORPERAZINE 5 MG TABLET 10 MG PO (15:09)
[2021-11-20] MEDS: HYDROMORPHONE 2 MG INJ IV (17:40)
[2021-11-20] MEDS: ATORVASTATIN 20 MG TABLET 80 MG PO (20:21)
[2021-11-20] MEDS: SODIUM CHLORIDE 0.9% FLUSH 10 ML IV (20:31)
[2021-11-20 21:01] LABS: Sodium Urine Random 23 mmol/L (30-90)
[2021-11-20 22:29] LABS: Lactate (Lactic Acid) 1.5 mmol/L (0.7-2.1)
[2021-11-20 22:30] LABS: Alanine Aminotransferase 44 IU/L (<35); Albumin 2.3 g/dL (3.5-5.0); Albumin Globulin Ratio 0.9 (1.0-2.8); Alkaline Phosphatase 183 U/L (38-126); Aspartate Aminotransferase 199 IU/L (14-36); BUN Creatinine Ratio 16.7 (6-22); Bilirubin Total 2.6 mg/dL (0.2-1.3); Blood Urea Nitrogen 57 mg/dL (7-17); Calcium 8.1 mg/dL (8.4-10.2); Carbon Dioxide 21 mmol/L (22-32); Chloride 93 mmol/L (98-107); Estimated Glomerular Filt Rate 14 mL/min (>60); Globulin 2.7 g/dL (1.7-4.1); Glucose 93 mg/dL (80-110); HEMOLYSIS < 15 (0-50); Potassium 4.3 mmol/L (3.4-5.1); Sodium 126 mmol/L (137-145)
--- NOTE | 2021-11-20 23:22 | PC.NURSE ---
Addendum entered by Joy Hernández R.N. 11/21/21 05:12: Dr. Cronin called so informed that UOP has only been 10cc this shift. No change in orders. Addendum entered by Joy Hernández R.N. 11/21/21 01:16: Complained of 8/10 abdominal pain so medicated with IV Dilaudid after which oxygen level declined to 85% so oxygen increased to 6L/min per NC and sat now at 92% Addendum entered by Joy Hernández R.N. 11/21/21 01:03: Has now converted back to SR Addendum entered by Joy Hernández R.N. 11/21/21 00:46: Patient repositioned and noted that HR increased into 130 range and was irregular. Verified with [employer]ED [employer] STOCK CLERK that patient now in afib RVR with rate ranging low 100's to 160's. EKG done and is showing afib RVR. Patient's upper airways with crackles and has audible expiratory wheezes. Oxygen at 3L/min per NC with was of 93%. BP 122/76. Now [employer] STOCK CLERK reports HR sustaining 130-140's. Dr. Cronin contacted and order received for now dose of IV Metoprolol. Original Note: Patient is oriented but very drowsy. Does respond to yes/no questions and follows direction. Breath sounds diminished in bilateral lower lobes; on oxygen at 3L/min per NC with sat of 93%; on continuous oximety. HRR and telemetry reading was SR. Denied nausea. BT hypoactive and abdomen is distended but non tender and patient denied any pain. Indwelling catheter is patent; only 10cc of urine in bag at shift change and urine is cloudy and dark yuni in color. Is very weak and unable to turn herself in bed so staff will reposition q2h. Gait not assessed at this time. Bilateral calf SCD's applied following shift changed. Puffiness of bilateral LE/feet. Is NPO at present time but did take sips of water with meds and had no difficulty swallowing. Fall risk score is moderate and bed alarm is activated. Spouse rooming in.
[2021-11-20 23:35] LABS: Hematocrit 23.4 % (36-46); Hemoglobin 7.7 g/dL (12.0-16.0); Mean Corpuscular HGB Conc 32.9 % (30-36); Mean Corpuscular Hemoglobin 26.5 PG (26-34); Mean Corpuscular Volume 80.4 fL (80-100); Platelet Count 136 X10^3/uL (150-400); Red Blood Cell Count 2.91 X10^6/uL (4.0-5.2); Red Cell Distribution Width 16.4 % (11.6-14.8)
[2021-11-20 23:40] LABS: White Blood Cell Count 0.2 X10^3/uL (4.5-11.0)
[2021-11-21] VITALS (8 sets, daily range): BP systolic 62–122; BP diastolic 30–76; PULSE 84–91; RESP 10–20; TEMP 36–36.3; O2SAT 91–94
[2021-11-21] MEDS: CEFEPIME 1 GM in SODIUM CHLORIDE 0.9% 100 ML IV (00:10)
[2021-11-21] MEDS: METOPROLOL TARTRATE 5 MG/5 ML INJ IV (00:51)
[2021-11-21] MEDS: HYDROMORPHONE 2 MG INJ IV ×6 (01:07→22:11)
[2021-11-21] MEDS: SODIUM CHLORIDE 0.45% 1,000 ML 75 ML IV (05:01)
[2021-11-21] MEDS: SODIUM CHLORIDE 0.9% FLUSH 10 ML IV ×2 (05:49→19:31)
[2021-11-21 06:10] LABS: Alanine Aminotransferase 59 IU/L (<35); Albumin 2.3 g/dL (3.5-5.0); Albumin Globulin Ratio 0.9 (1.0-2.8); Alkaline Phosphatase 186 U/L (38-126); Aspartate Aminotransferase 246 IU/L (14-36); BUN Creatinine Ratio 15.4 (6-22); Bilirubin Total 2.7 mg/dL (0.2-1.3); Blood Urea Nitrogen 58 mg/dL (7-17); Calcium 7.7 mg/dL (8.4-10.2); Carbon Dioxide 21 mmol/L (22-32); Chloride 94 mmol/L (98-107); Estimated Glomerular Filt Rate 12 mL/min (>60); Globulin 2.6 g/dL (1.7-4.1); Glucose 83 mg/dL (80-110); HEMOLYSIS < 15 (0-50); Potassium 4.3 mmol/L (3.4-5.1); Sodium 125 mmol/L (137-145); Total Protein 4.9 g/dL (6.3-8.2)
[2021-11-21 06:53] LABS: Hematocrit 23.1 % (36-46); Hemoglobin 7.5 g/dL (12.0-16.0); Mean Corpuscular HGB Conc 32.5 % (30-36); Mean Corpuscular Hemoglobin 26.5 PG (26-34); Mean Corpuscular Volume 81.5 fL (80-100); Platelet Count 126 X10^3/uL (150-400); Red Blood Cell Count 2.84 X10^6/uL (4.0-5.2); Red Cell Distribution Width 16.9 % (11.6-14.8)
[2021-11-21 06:54] LABS: White Blood Cell Count 0.2 X10^3/uL (4.5-11.0)
--- NOTE | 2021-11-21 09:12 | CM.DPNOTE ---
Faxed referral to [facility] per [facility] and received conf. Mary Che CM Assist.
--- NOTE | 2021-11-21 09:27 | CM.DANOTE ---
DCP: Case received, EMR reviewed and checked on patient. Spouse, Turner, was at bedside. Introduced self and role. Spouse wanted limited conversation with this DC paraplanner, only wants to speak to Dr. Cruz. Was able to obtain limited information regarding patient's baseline activity level prior to hospitalization. DCP assessment was completed based upon information currently available. Patient is a 75 year old female who admitted 6-18, to the care of the hospitalist team. PCP: Dr. Cruz. Payer: confirmed: [facility]. Patient came to the hospital via private vehicle secondary to having increased abdominal distension. Patient was recently here for metastatic squamous cell carcinoma on November 07. Patient had started recent chemo Patient not eating or drinking, had been receiving palliative chemo. Patient has refused NG tube at this time. Abdominal pain related to peritoneal carcinomatosis. Met with patient at bedside, patient in bed, not speaking, oxygen in place, moaning. Attempted to have converstation about hospice. Asked him if he is familiar with hospice. Stated, he is aware. Mentioned that this case managers can initiate hospice. Spouse is under the assumption that hospice comes to the hospital. Let him know that hospice does not come to the hospital, but in the home. Asked him about home, and also asked how patient had been doing at home prior to hospitalization. He stated, he will not speak to anyone else, wants this to go through Dr. Cruz. [facility], and left a message. Dr. Cruz had stopped by care management office prior to this DC paraplanner having conversation with spouse, and stated, she would be making patient comfort care. She also understands that it is unknown how long patient will have, and that home may need to be the plan on hospice. Will need to discuss further with spouse, and will continue to update Dr. Cruz. P: DCP to continue to follow. Will update Dr. Cruz, that spouse will not speak to care management, unless she is present. Rafia Calhoun RN/Janitorial Cleaner Discharge Planning/Care Management Advanced directive, confirm from FAMILY Start: 11/20/21 14:43 Freq: Q24H Status: Active Protocol: Document 11/20/21 15:23 CJW (Rec: 11/20/21 15:30 [id number]) Advance Directive, confirm on record Time 15:29 Person contacted pt Copy received No CM Discharge Assessment Start: 11/21/21 09:24 Freq: Status: Active Protocol: Document 11/21/21 09:24 (Rec: 11/21/21 09:26 [id number]) Discharge Planning Assessment Assigned Cream Maker Rafia Calhoun RN/Janitorial Cleaner Advance Directives? No Advance Directives on File No History Provided By Patient,Family Member, Significant Other,Medical Record Prior Living Arrangements House Household Members spouse Type of transporation used prior to Relies on Others admit Independent with ADL's Unknown at this time. Is patient alert and oriented? Yes Needs Assistance With Home Chores / Shopping DME Already Rented / Owned FWW / Walker Comment Hospice services. Barriers to Discharge Yes Comment Spouse will not discuss with care management, only wants to go through Dr. Cruz. Discharge Plan Home Transportation Arrangement Spouse Referrals Initiated Other Additional Comment [facility] Updated in Patient Room with Yes name and ext. # of Cream Maker Review Status In Process Next Review Type Continued Stay Review
[2021-11-21] MEDS: SCOPOLAMINE 1 PATCH TOP (14:05)
--- NOTE | 2021-11-21 14:07 | PC.NURSE ---
RR-11, 90%8L high flow for comfort. patient taking deep breaths. pain controlled with dilaudid. patient mostly asleep. not opening eyes, but makes some occasional noise. updated provider. vto for sco patch.
[2021-11-21] MEDS: LORazepam 2 MG/ML INJ 0.5 MG IV (14:41)
[2021-11-21 18:59] LABS: Acinetobacter baumannii Not Detected (Not Detect); Candida albicans Not Detected (Not Detect); Candida glabrata Not Detected (Not Detect); Candida krusei Not Detected (Not Detect); Candida parapsilosis Not Detected (Not Detect); Candida tropicalis Not Detected (Not Detect); E. coli Not Detected (Not Detect); Enterobacter cloacae complex Not Detected (Not Detect); Enterobacteriaceae species Not Detected (Not Detect); Enterococcus species Not Detected (Not Detect); Haemophilus influenzae Not Detected (Not Detect); Listeria monocytogenes Not Detected (Not Detect); Neisseria meningitidis Not Detected (Not Detect); Proteus species Not Detected (Not Detect); Pseudomonas aeruginosa Not Detected (Not Detect); Serratia marcescens Not Detected (Not Detect); Staphylococcus species Not Detected (Not Detect); Streptococcus agalactiae (Gr B Not Detected (Not Detect); Streptococcus pneumonia Not Detected (Not Detect); Streptococcus pyogenes (Gr A) Not Detected (Not Detect); Streptococcus species Not Detected (Not Detect)
--- NOTE | 2021-11-21 19:02 | PM.PN.1 ---
Subjective Subjective Date Patient Seen: 11/21/21 Time Patient Seen: 19:03 Interval history: Reviewed H and P from Dr. Connolly and workup as well reviewed last admission. Met with patient and met with her together and separately. Patient with significant deterioration overnight in terms of poor renal output. Patient opens her eyes but does not follow commands or answer my questions. Patient having intermittent pain and being treated with Dilaudid. Primary pain has been abdominal pain. She is not had anything by mouth. She is not passing any stool and again has had about 1 cc of urine out every hour over the fast food shift lead. She is not had any arrhythmia on telemetry. She was put on Levophed when she 1st came in the hospital but is no longer on pressure support. She has received about 24 hours of IV antibiotics for possible sepsis but no organism is found. Exam Vital Signs (past 8 hours): - 11/21/21 11:36 Respiratory Rate 11 L Pulse Oximetry 91 Oxygen Flow Rate 7.5 Oxygen Delivery Method High Flow Nasal Cannula,Humidification Oxygen Flow Rate 7.5 Narrative Exam Narrative: Patient opens eyes but is unable to follow commands. She is unable to answer questions Blood pressure 90s over 60 HEENT: Mucous membranes moist and pink Neck is supple Chest: Shows decreased breath sounds bibasilar right greater than left Abdomen: Positive bowel sounds but she is distended she is diffuse tenderness but no guarding or rebound Extremities show edema with trace dorsalis pedis pulses Objective Labs Result Diagrams: 11/21/21 05:45 11/21/21 05:45 Labs: Laboratory Results - last 24 hr 11/19/21 11/20/21 11/20/21 20:08 20:15 22:10 WBC 0.2 L* D RBC 2.91 L Hgb 7.7 L Hct 23.4 L MCV 80.4 MCH 26.5 MCHC 32.9 RDW 16.4 H Plt Count 136 L Neut % (Auto) Cancelled Lymph % (Auto) Cancelled Mchenry % (Auto) Cancelled Eos % (Auto) Cancelled Baso % (Auto) Cancelled Neut # (Auto) Cancelled Lymph # (Auto) Cancelled Mchenry # (Auto) Cancelled Eos # (Auto) Cancelled Baso # (Auto) Cancelled Sodium Potassium Chloride Carbon Dioxide BUN Creatinine Estimated GFR BUN/Creatinine Ratio Glucose Lactate Calcium Total Bilirubin AST ALT Alkaline Phosphatase Total Protein Albumin Globulin Albumin/Globulin Ratio Ur Random Sodium 23 L A. baumannii (PCR) Not detected Candy albicans (PCR) Not detected C. glabrata (PCR) Not detected C. krusei (PCR) Not detected C. parapsilosis (PCR) Not detected C. tropicalis (PCR) Not detected Enterobacteriac sp PCR Not detected E. cloacae complex PCR Not detected Enterococcus sp PCR Not detected E. coli (PCR) Not detected H. influenzae (PCR) Not detected Klebsiella oxytoca PCR Not detected Klebsiella pneumoniae Not detected List. monocytogenes PCR Not detected N. meningitidis (PCR) Not detected Proteus species (PCR) Not detected Serratia marcescens PCR Not detected Staphylococcus sp PCR Not detected Staph aureus (PCR) Not detected mecA-Methicil Res Gene Not Reportable Streptococcus sp PCR Not detected Group A Strep (PCR) Not detected Strep agalactiae (PCR) Not detected Strep pneumoniae (PCR) Not detected P. aeruginosa (PCR) Not detected Talisha/B-Vanco Res Genes Not Reportable KPC-Carbap Res Gene PCR Not Reportable 11/20/21 11/20/21 11/21/21 22:10 22:10 05:45 WBC 0.2 L* RBC 2.84 L Hgb 7.5 L Hct 23.1 L MCV 81.5 MCH 26.5 MCHC 32.5 RDW 16.9 H Plt Count 126 L Neut % (Auto) Cancelled Lymph % (Auto) Cancelled Mchenry % (Auto) Cancelled Eos % (Auto) Cancelled Baso % (Auto) Cancelled Neut # (Auto) Cancelled Lymph # (Auto) Cancelled Mchenry # (Auto) Cancelled Eos # (Auto) Cancelled Baso # (Auto) Cancelled Sodium 126 L Potassium 4.3 Chloride 93 L Carbon Dioxide 21 L BUN 57 H Creatinine 3.42 H Estimated GFR 14 L BUN/Creatinine Ratio 16.7 Glucose 93 Lactate 1.5 Calcium 8.1 L Total Bilirubin 2.6 H AST 199 H ALT 44 H Alkaline Phosphatase 183 H Total Protein 5.0 L Albumin 2.3 L Globulin 2.7 Albumin/Globulin Ratio 0.9 L Ur Random Sodium A. baumannii (PCR) Candy albicans (PCR) C. glabrata (PCR) C. krusei (PCR) C. parapsilosis (PCR) C. tropicalis (PCR) Enterobacteriac sp PCR E. cloacae complex PCR Enterococcus sp PCR E. coli (PCR) H. influenzae (PCR) Klebsiella oxytoca PCR Klebsiella pneumoniae List. monocytogenes PCR N. meningitidis (PCR) Proteus species (PCR) Serratia marcescens PCR Staphylococcus sp PCR Staph aureus (PCR) mecA-Methicil Res Gene Streptococcus sp PCR Group A Strep (PCR) Strep agalactiae (PCR) Strep pneumoniae (PCR) P. aeruginosa (PCR) Talisha/B-Vanco Res Genes KPC-Carbap Res Gene PCR 11/21/21 05:45 WBC RBC Hgb Hct MCV MCH MCHC RDW Plt Count Neut % (Auto) Lymph % (Auto) Mchenry % (Auto) Eos % (Auto) Baso % (Auto) Neut # (Auto) Lymph # (Auto) Mchenry # (Auto) Eos # (Auto) Baso # (Auto) Sodium 125 L Potassium 4.3 Chloride 94 L Carbon Dioxide 21 L BUN 58 H Creatinine 3.76 H Estimated GFR 12 L BUN/Creatinine Ratio 15.4 Glucose 83 Lactate Calcium 7.7 L Total Bilirubin 2.7 H AST 246 H ALT 59 H Alkaline Phosphatase 186 H Total Protein 4.9 L Albumin 2.3 L Globulin 2.6 Albumin/Globulin Ratio 0.9 L Ur Random Sodium A. baumannii (PCR) Candy albicans (PCR) C. glabrata (PCR) C. krusei (PCR) C. parapsilosis (PCR) C. tropicalis (PCR) Enterobacteriac sp PCR E. cloacae complex PCR Enterococcus sp PCR E. coli (PCR) H. influenzae (PCR) Klebsiella oxytoca PCR Klebsiella pneumoniae List. monocytogenes PCR N. meningitidis (PCR) Proteus species (PCR) Serratia marcescens PCR Staphylococcus sp PCR Staph aureus (PCR) mecA-Methicil Res Gene Streptococcus sp PCR Group A Strep (PCR) Strep agalactiae (PCR) Strep pneumoniae (PCR) P. aeruginosa (PCR) Talisha/B-Vanco Res Genes KPC-Carbap Res Gene PCR [facility] Medical History Elevated cholesterol FH: carotid endarterectomy Hepatic steatosis Hypertension Night sweats Swollen lymph nodes TIA (transient ischemic attack) Surgical History History of hysterectomy Social History household members: spouse Smoking Status: Never smoker alcohol intake: never Assessment & Plan Assessment & Plan narrative: 75-year-old female with squamous cell carcinoma of unknown primary, poorly differentiated with advanced metastases and failed immunotherapy and received 1 dose of chemotherapy recently which currently has failed. Patient was admitted with possible sepsis but urine and blood cultures are negative. Patient's condition is continued to progress. She was initially on Levophed when she came in but is now off that and blood pressure is dropping. She made 10 cc of urine over night. She is not responsive although she will open her eyes but is unable to respond to my questions. I discussed the course with Dr. Amador he did not feel that there was other treatment options for treating the cancer and clearly she had progressed. I discusses with her , Turner who is her durable power of collections attorney and I had discussed with patient as well previous hospitalizations and visits and at this time we will move to comfort care. We discussed various steps in at this point we will stop antibiotics and IV fluids and will provide pain medication with Dilaudid and lorazepam in place scopolamine patch and atropine drops. We had previously discussed hospice but I do not think that patient will survive for transport and arranging home with hospice and it is the 's preference that we remain in the hospital at this time. We will reassess tomorrow. Addendum: Patient was seen a 2nd time today. Total time with patient and is 65 minutes. Patient had deterioration in her condition and is now unresponsive to patient's and her stepson she had episodes of awakening suddenly and screaming out in pain. She was given lorazepam and has not had such episodes. Time Spent With Patient Critical Care time: I spent a total of [] minutes of critical care time on this patient's care today; this time is exclusive of procedural time. Quality VTE Deep Vein Thrombosis/Pulmonary Embolism Present on Admission: No
--- NOTE | 2021-11-21 23:20 | PC.NURSE ---
Patient is mostly nonresponsive. Did open eyes when repositioned and moans when turned but otherwise no response. Breath sounds CTA with oxygen at 8L/min per HFNC and sat of 92%. RR 10 and nonlabored. BP 62/30 at time of assessment. BT hypoactive and abdomen remains distended and tender. Indwelling catheter with no UOP on previous shift. Patient is on comfort care and, per Dr. Cruz, staff is providing pain medication more frequently regardless of FLACC score in order to keep patient comfortable. Spouse at bedside and still requesting staff reposition patient. SCD's not in use so as to keep patient more comfortable. Bed alarm is not activated as patient is immobile and spouse is at bedside.
[2021-11-22] MEDS: HYDROMORPHONE 2 MG INJ IV ×2 (00:05→05:32)
[2021-11-22] MEDS: SODIUM CHLORIDE 0.9% FLUSH 10 ML IV ×3 (00:05→09:36)
--- NOTE | 2021-11-22 09:36 | PC.NURSE ---
Addendum entered by Mau Ferrell R.N. 11/22/21 15:53: Patient picked up by [facility] respresentative. Addendum entered by Mau Ferrell R.N. 11/22/21 12:58: Per coordinator we are waiting to hear back from [facility] prior to being able to release the body for picking machine operator by services at this time. Addendum entered by Mau Ferrell R.N. 11/22/21 11:31: Patient's took home her earrings and all belongings that were in the room, and went home. Plan for [facility] picking machine operator per her husbands arrangments. Addendum entered by Mau Ferrell R.N. 11/22/21 10:56: Patient's notified us that patient had , patient without heart beat or respirations at 945. Coordinator notified, and call placed to Dr. Cruz. Patient's notified her son Eleuterio over the phone. Original Note: Patient unresponsive, comfortable, irregular slow breathing noted. Mottling to bilateral lower extremities, no output noted in dobson. Patient's Turner is at bedside. Discussed with him that patient is showing signs of end of life, support offered and her is grateful for her comfort at this time. Per his report patient has had unmanaged pain for weeks and is emotional discussing this. Spoke with Dr. Cruz who is aware of declining status and will be in this morning sometime to see patient. Continue with plan of care, comfort measures in place.
--- NOTE | 2021-11-22 11:09 | PM.DDS.1 ---
Discharge Summary History of Illness Chief Complaint: Abdominal Pain Hospital Course Date of Admission: 11/19/21 23:44 Date of : 11/22/21 Primary care provider: Kathy Cruz MD Consults: 11/21/21 19:26 Consult to Discharge Planning Routine Comment: Consult to Hospice Referral Urgent Comment: Discharge provider: palomo Discharge Diagnosis: Metastatic squamous cell carcinoma, poorly differentiated, unknown primary, failed immunotherapy and chemotherapy Hospital Course: Patient needed to the hospital with possible sepsis however no organism obtained from blood cultures and urine cultures. 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 Patient had had previous hospitalization once in the last 2 weeks for the same diagnosis. Her overall condition had markedly deteriorated. She was treated with IV antibiotics but her condition progressed and she became an uric and unresponsive and at that point was changed to comfort measures only. Patient was treated with as needed lorazepam and dilaudid and scopolamine patch was placed an atropine was given and patient peacefully at 9:45 a.m. on 11/22/2021. Her was present. Objective Labs Result Diagrams: 11/21/21 05:45 11/21/21 05:45 Labs: Laboratory Results - last 24 hr 11/19/21 20:08 A. baumannii (PCR) Not detected Candy albicans (PCR) Not detected C. glabrata (PCR) Not detected C. krusei (PCR) Not detected C. parapsilosis (PCR) Not detected C. tropicalis (PCR) Not detected Enterobacteriac sp PCR Not detected E. cloacae complex PCR Not detected Enterococcus sp PCR Not detected E. coli (PCR) Not detected H. influenzae (PCR) Not detected Klebsiella oxytoca PCR Not detected Klebsiella pneumoniae Not detected List. monocytogenes PCR Not detected N. meningitidis (PCR) Not detected Proteus species (PCR) Not detected Serratia marcescens PCR Not detected Staphylococcus sp PCR Not detected Staph aureus (PCR) Not detected mecA-Methicil Res Gene Not Reportable Streptococcus sp PCR Not detected Group A Strep (PCR) Not detected Strep agalactiae (PCR) Not detected Strep pneumoniae (PCR) Not detected P. aeruginosa (PCR) Not detected Talisha/B-Vanco Res Genes Not Reportable KPC-Carbap Res Gene PCR Not Reportable
[2021-11-22 16:18] LABS: Osmolality Urine 306 mOsmol/kg (.)
== END 2021-11-22 15:55 | disposition expired | DRG 375 ==
LOC: ED 23:42 → AC 23:46
PROVIDERS: Admitting Provider Family Medicine; Emergency Provider Emergency Medicine; PCP Family Medicine; Referring Provider Emergency Medicine; Visit Provider Family Medicine
DX: C78.6 Secondary malignant neoplasm of retroperitoneum and peritoneum (principal); N17.9 Acute kidney failure, unspecified; E87.1 Hypo-osmolality and hyponatremia; C80.1 Malignant (primary) neoplasm, unspecified; E86.0 Dehydration; I95.9 Hypotension, unspecified; I10 Essential (primary) hypertension; G89.3 Neoplasm related pain (acute) (chronic); Z66 Do not resuscitate; Z51.5 Encounter for palliative care; Z20.822 Contact with and (suspected) exposure to COVID-19
CPT/HCPCS: 36415; 36591; 74022; 74176; 80053; 81001; 83605; 83690; 83935; 84145; 84300; 85007; 85025; 85027; 87040; 87086; 87150; 87633; 93005; 94762; 96361; 96365; 96366; 96367; 96375; 96376; 99223; 99285; 99291; J0692; J1170; J2060; J2405; J7050